=== PATIENT | male | born 1965 | race Caucasian/White ===

== ENCOUNTER → 2016-09-28 | Outpatient (CLI) | payer MEDICARE, OTHER ==
--- NOTE | 2016-09-28 11:42 | US ---
EXAMINATION TYPE: US abd limited kidneys/bladder DATE OF EXAM: 09/28/2016 9:02 AM COMPARISON: CT chest May 28, 2016 CLINICAL HISTORY: R93.2 AbN findings diagnostic imaging of liver. On meds for diabetes, no alcohol EXAM MEASUREMENTS: Liver Length: 11.3 cm Gallbladder Wall: 0.2 cm CHD: 0.4 cm Right Kidney: 1.0 X 4.4 X 4.4 cm Left Kidney: 10.7 X 6.0 X 5.8 cm Post Void Volume: 4.3 ML Pancreas: hyperechoic Liver: fatty; small left lobe Gallbladder: multiple wall echogenic focus (wall polyps) with largest = 0.4 x 0.3 x 0.3cm CBD: wnl Right Kidney: upper pole small, hyperechoic focus with posterior shadowing suggests renal calcificat ion = 0.6 x 0.6 x 0.4cm Left Kidney: wnl Bladder: wnl Bilateral Jets Seen Yes Normal Post Void Residual (normal less than 50ml) Yes TECHNOLOGIST IMPRESSION: No worrisome pancreatic mass or ductal dilatation is seen on images of the pancreas though the pancre as is felt suboptimally are not completely imaged due to shadowing from overlying bowel gas and patie nt's body habitus. Liver is heterogeneously hyperechoic in appearance consistent with diffuse fatty i nfiltration. No intrahepatic ductal dilatation is present. Evaluation for focal masses is limited due to the heterogeneity. No obvious masses are seen on recent CT or ultrasound images saved. Gallbladde r is seen without shadowing mobile gallstones. There are nonshadowing nonmobile small foci measuring up to 4 mm in size suspicious for small polyps. Technologist's notes 5 mm nonshadowing hyperechoic focus medially upper to mid pole level right kidne y, no corresponding calculus is seen on recent CT. No suspicious masses are seen in the left kidney on ultrasound. Note is made recent CT shows 1 cm rou nd hypodense lesion axial image 16 and coronal image 58 in which solid lesion or neoplasm cannot be e xcluded. Follow-up is advised. There are 1-2 additional likely simple appearing cyst measuring near [address] is not clearly seen on ultrasound. Bilateral distal ureter jets are seen in bladder. After voiding small amount of residual urine is present. IMPRESSION: 1. Heterogeneity of liver favors diffuse fatty infiltration. Underlying hepatocellular disease is not excluded. Imaging guided random biopsy for tissue analysis can be performed if desired. No suspiciou s mass in liver is seen to me on recent CT or ultrasound images saved. 2. Attention to left kidney upper pole level, solid lesion or neoplasm cannot be excluded. Follow-up renal protocol multiphase contrast-enhanced CT or MRI is advised to see if there is interval change.
== END | disposition home or self-care (01) ==
LOC: RADUSWWP 08:04
PROVIDERS: ATTEND Family Medicine
DX: R93.2 Abnormal findings on diagnostic imaging of liver and biliary tract (principal)
CPT/HCPCS: 76705; 76770

== ENCOUNTER → 2016-10-25 | Outpatient (CLI) | payer MEDICARE, OTHER ==
[2016-10-25 13:41] LABS: Blood Urea Nitrogen 12 mg/dL (9-20); Non-African American GFR(MDRD) >60 (>60 ml/min/1.73 sqM)
--- NOTE | 2016-10-25 15:42 | CT ---
EXAMINATION TYPE: CT abdomen w con DATE OF EXAM: 10/25/2016 2:38 PM COMPARISON: PET/CT 10/16/2016 INDICATION: Patient in for chronic nonalcoholic liver disease DLP: 774.2 mGycm, Automated exposure control for dose reduction was used. CONTRAST: 100 mL of Omnipaque 350. Study performed with Oral Contrast TECHNIQUE: Axial images were obtained from above the diaphragm to the pubic rami in the axial plane a t 5 mm thick sections. Reconstructed images are reviewed on the computer in the coronal plane. FINDINGS: Limited CT sections are obtained the lung bases. The lung bases are clear. CT ABDOMEN: Liver: Liver is a normal density without discrete masses or cysts. No lobation is evident. No hepatom egaly is evident. Spleen: Normal Pancreas: Normal Adrenal glands: The adrenal glands are normal. Gallbladder: Normal Kidneys: No masses are evident. No hydronephrosis is present. There is a 0.9 cm cyst on the lateral left kidney cortex. Delayed images were obtained through the kidneys, which remain unremarkable. Aorta: Vascular calcification is within the aorta. Inferior vena cava: Flattened which can be related to volume status. Loops of bowel within the abdomen and pelvis are normal. Oral contrast utilized is probably withi n the stomach. Appendix: Normal as visualized. IMPRESSIONS: 1. Liver appears unremarkable on this current CT examination.
== END | disposition home or self-care (01) ==
LOC: RADCTMAIN 12:33
PROVIDERS: ATTEND Family Medicine
DX: K76.9 Liver disease, unspecified (principal)
CPT/HCPCS: 82565; 84520; 74160; 36415; Q9967

== ENCOUNTER → 2016-12-31 | Outpatient (CLI) | payer MEDICARE, OTHER ==
[2016-12-31 18:38] LABS: Blood Urea Nitrogen 10 mg/dL (9-20); Non-African American GFR(MDRD) >60 (>60 ml/min/1.73 sqM)
--- NOTE | 2016-12-31 19:39 | CT ---
EXAMINATION TYPE: CT brain w con DATE OF EXAM: 12/31/2016 COMPARISON: NONE INDICATION: observation for mets. DLP: 999.3 mGycm, Automated exposure control for dose reduction was used. CONTRAST: [address] of the brain is performed utilizing 3 mm thick sections through the posterior fossa and 3 mm thick sections through the remaining calvarium. Study is performed within 24 hours of arrival to the hosp [facility]. No abnormal hyperdensity is present to suggest an acute intracranial hemorrhage. No mass lesion is evident. No acute infarcts are evident. Ventricles and sulci are appropriate for the patient age. Mucosal thickening is within the anterior ethmoid air cells and bilateral frontal sinuses. Some milde r mucosal thickening is within the mid and posterior ethmoid air cells. Sphenoid sinuses and maxillar y sinuses within the [id number] are clear. Mastoid air cells are clear. No abnormal enhancement is evident. IMPRESSIONS: 1. No suspicious enhancement or changes to suggest metastatic disease. 2. Scattered areas of mucosal thickening. Correlate for sinusitis.
== END | disposition home or self-care (01) ==
LOC: RADCTMAIN 17:52
PROVIDERS: ATTEND Internal Medicine Hematology & Oncology
DX: J34.89 Other specified disorders of nose and nasal sinuses (principal); R91.1 Solitary pulmonary nodule
CPT/HCPCS: 82565; 84520; 70460; 36415; Q9967

== ENCOUNTER 2017-01-03 08:29 | Day surgery (SDC) | payer MEDICARE, OTHER ==
[2017-01-03] MEDS ORDERED: ALPRAZolam 0.5 MG TAB PO ONE (08:53)
[2017-01-03 08:55] VITALS: RESP 20; TEMP 97.4
[2017-01-03 09:09] LABS: Mean Platelet Volume 6.2
[2017-01-03 09:13] LABS: Prothrombin Time 10.6 sec (9.0-12.0)
[2017-01-03 09:23] LABS: Glucose,Whole Blood 110 mg/dL (75-99)
--- NOTE | 2017-01-03 10:56 | CT ---
EXAMINATION TYPE: CT guided FNA DATE OF EXAM: 01/03/2017 HISTORY: Left upper lobe lung mass COMPARISON: NONE Maximal barrier technique was utilized. The skin overlying a suitable path to the lesion was localiz ed using CT and the overlying skin was prepped and draped. Lidocaine used for local anesthesia. A s kin kraig made with a scalpel. Using CT guidance, access was gained to the lesion with a 22-gauge nee dle through a 19-gauge guide. Aspirated specimen submitted to cytology. 3 passes were performed in all. Following the procedure no immediate complications. The patient is discharged in stable condi tion. Hemostasis achieved. IMPRESSION: SUCCESSFUL CT GUIDED BIOPSY. PATHOLOGY PENDING. THIS PROCEDURE WAS PERFORMED BY THE UNDERSIGNED.
--- NOTE | 2017-01-03 11:03 | XR ---
EXAMINATION TYPE: XR chest 1V portable DATE OF EXAM: 01/03/2017 COMPARISON: NONE HISTORY: Post lung biopsy TECHNIQUE: Single frontal view of the chest is obtained. FINDINGS: The osseous structures are intact. Left pulmonary mass is seen with no sizable pneumothora x. Elevation left hemidiaphragm is noted pleural-based thickening or tiny effusion suspected. IMPRESSION: 1. No sizable pneumothorax post biopsy.
--- NOTE | 2017-01-03 12:57 | XR ---
EXAMINATION TYPE: XR chest 1V portable DATE OF EXAM: 01/03/2017 COMPARISON: NONE HISTORY: Post left lung biopsy TECHNIQUE: Single frontal view of the chest is obtained. FINDINGS: There is a suggestion of a 5-10% left-sided pneumothorax along the lateral margin of the l eft upper lobe. Left hemidiaphragm elevation large pulmonary mass seen. Right lung clear. Biapical pl eural thickening. Heart size stable. IMPRESSION: 1. Findings are suspicious for a small left-sided pneumothorax measuring 5-10%.
[2017-01-03 14:09] VITALS: BP 107/70; PULSE 73
--- NOTE | 2017-01-03 14:47 | XR ---
EXAMINATION TYPE: XR chest special view(s) DATE OF EXAM: 01/03/2017 COMPARISON: Prior chest x-rays indicated earlier time, inspiration and expiration frontal views submi tted HISTORY: Status post lung biopsy TECHNIQUE: Frontal and lateral views of the chest are obtained. FINDINGS: No evident pneumothorax or sizable effusion. Patient's left lung mass is again noted. IMPRESSION: No evident complication status post lung biopsy
== END 2017-01-03 14:25 | disposition home or self-care (01) ==
LOC: RADPROMAIN 08:29
PROVIDERS: ATTEND Surgery
DX: C34.12 Malignant neoplasm of upper lobe, left bronchus or lung (principal)
CPT/HCPCS: 10022; 36415; 71010; 71035; 77012; 85049; 85610; 88173; 88305; 88341; 88342

== ENCOUNTER → 2017-01-08 | Outpatient (CLI) | payer MEDICARE, OTHER ==
--- NOTE | 2017-01-10 09:25 | PE ---
Nuclear medicine PET/CT HISTORY: Pulmonary nodule, R 91.1 Patient received 13.1 mCi F-18 FDG intravenously. Delayed scanning performed from the skull base to t he mid thighs. Localization and attenuation correction CT scan was performed. [facility] 10/16/2016 Neck and chest: Patient's pulmonary nodule is noted in the left upper lobe and shows corresponding hy permetabolic uptake, SUV is 12.5. There is no pleural or pericardial effusion. Deep to the level of l eft parotid gland at the level of the posterior mandible there is a focus of hypermetabolic uptake pr esent, SUV is 7. Abdomen pelvis: No suspicious hypermetabolic uptake. No evident renal mass. No liver mass. No retrope ritoneal adenopathy. Sigmoid colon activity is likely physiologic. Osseous structures: No significant interval change. IMPRESSION: Hypermetabolic uptake within patient's left upper lobe lung mass. Uptake within the nonen larged lymph node posterior to the left mandible is indeterminate and was present on prior.
== END | disposition home or self-care (01) ==
LOC: RADPETMAIN 14:04
PROVIDERS: ATTEND Internal Medicine Hematology & Oncology
DX: R91.8 Other nonspecific abnormal finding of lung field (principal); R59.0 Localized enlarged lymph nodes
CPT/HCPCS: 78815; A9552

== ENCOUNTER → 2017-04-16 | Outpatient (CLI) | payer MEDICARE, OTHER ==
--- NOTE | 2017-04-17 15:49 | PE ---
EXAMINATION TYPE: PET CT fusion whole body DATE OF EXAM: 04/16/2017 COMPARISON: CT-guided FNA 01/03/2017 Prior PET/CT: 01/08/2017 HISTORY: Lung cancer TECHNIQUE: Following the intravenous administration of 12.6 mCi of F-18 FDG, whole body images are p erformed from the skull base to the midthigh. Images are reviewed on the computer in the coronal, ax ial, and sagittal planes. Reconstructed rotating images are created on independent workstation and r eviewed on the computer. A localization and attenuation correction CT is performed in conjunction w ith the PET scan. DLP: 411.69 mGycm SCAN: Subsequent Scan Blood glucose: 92 mg/dL Average Mediastinum SUV: 1.13 Average Liver SUV: 1.41 FINDINGS: NECK: There is a focal area of marked increased uptake within the left parotid gland at the angle of the jaw. This has an SUV value of 9.8 and can be compatible with a metastatic lesion. PET image 28. THORAX: No abnormal uptake. Previous left midlung nodule has nearly resolved. The SUV value of the re sidual nodule is 0.99 compared to the previous of 12. ABDOMEN: No abnormal uptake PELVIS: No abnormal uptake OSSEOUS STRUCTURES: There is diffuse uptake which may be reactive to treatment. LOCALIZATION CT: Suspicious nodules correspond to the uptake on the PET scan in the left parotid sabine on is not identified. The ascending thoracic aorta at the level of the main pulmonary artery is 3.7 c m. The main pulmonary artery bifurcation is 2.6 cm. Left upper lobe nodule is diminished in size curr ently is a transverse dimension of 0.8 cm. Image 86 series 3. COMPARISON: Hypermetabolic activity within the left parotid region appears increased from comparison. The area of marked increased uptake on the prior left upper lung field is not evident on the current examination. This area has diminished in size currently measuring 0.8 cm compared previous AP measur ement of 2.7 cm. IMPRESSION: 1. Increasing activity within a left parotid nodule. 2. Near complete resolution with a normal-appearing SUV value of a left lung nodule.
== END | disposition home or self-care (01) ==
LOC: RADPETMAIN 12:41
PROVIDERS: ATTEND Internal Medicine Hematology & Oncology
DX: C34.92 Malignant neoplasm of unspecified part of left bronchus or lung (principal); K11.8 Other diseases of salivary glands
CPT/HCPCS: 78816; A9552

== ENCOUNTER → 2017-04-21 | Outpatient (CLI) | payer MEDICARE, OTHER ==
--- NOTE | 2017-04-21 15:55 | US ---
EXAMINATION TYPE: US Parotid Glands DATE OF EXAM: 04/21/2017 COMPARISON: PET CT 04/16/2017 CLINICAL HISTORY: 52-year-old male K11.8 DISEASE SALIVARY GLAD. Patient stated at end of US has Lung CA; following 0.8cm left parotid nodule per PET scan. TECHNIQUE: Multiple sonographic images of the parotid glands were obtained. FINDINGS: GLAND SIZE: Right Parotid: 3.8 x 3.2 x 0.4 cm Overall Parenchyma: homogenous Left Parotid: 3.8 x 2.6 x 0.5 cm Overall Parenchyma: homogeneous US Parotid: RIGHT: - lymph node is noted mid gland, size = 0.6 x 0.7 x 0.4cm; - multiple lymph nodes are additionally seen inferior to right parotid. LEFT: - lymph node is imaged in superior parotid area = 0.5 x 0.4 x 0.4cm; - smaller lymph node seen adjacent to mid parotid; - inferior parotid gland has another lymph node = 0.4 x 0.3 x 0.3cm; - mid pole small lymph node superficial to the parotid gland = 0.3 x 0.2 x 0.2cm; - inferior to parotid gland is an 8 x 7 x 4 mm hypoechoic lesion with a 3 mm internal cystic componen t. IMPRESSION: 1. A few intraparotid lymph nodes demonstrated on both size. These are nonspecific and the one on the right is mildly enlarged at 7 mm. 2. A hypoechoic area along the inferior margin of the left parotid tail measures 8 mm and seems to co ntain a 3 mm internal cystic component. Correlate with physical exam findings for any suspicious palp able abnormality here. If any growth is noted, tissue sampling can be performed. 3. Consider short interval follow-up ultrasound on the left under radiologist supervision in order to direct imaging to the location of the abnormality seen on PET scan (directly posterior to the mandib ular angle, in front of the anterior margin of the sternocleidomastoid, deep to the parotid gland and deep to a vein coursing within the parotid gland).
== END | disposition home or self-care (01) ==
LOC: RADUSWWP 12:22
PROVIDERS: ATTEND Internal Medicine Hematology & Oncology
DX: K11.6 Mucocele of salivary gland (principal); K11.1 Hypertrophy of salivary gland
CPT/HCPCS: 76536

== ENCOUNTER → 2017-07-20 | Outpatient (CLI) | payer MEDICARE, OTHER ==
[2017-07-20 13:33] LABS: Blood Urea Nitrogen 12 mg/dL (9-20)
--- NOTE | 2017-07-20 13:57 | US ---
EXAMINATION TYPE: US thyroid st tissue head/neck DATE OF EXAM: 07/20/2017 COMPARISON: US CLINICAL HISTORY: CA34.92 Lung CA. Right and left parotid area scanned Right shows hypoechoic areas probable lymph nodes largest measuring 0.5 x 0.6 x 0.8cm Left shows hypoechoic areas probable lymph nodes largest measuring 0.9 x 0.6 x 1.0cm IMPRESSION: 1. Shotty adenopathy within the neck. Short axis measurement are 8 mm or less within the visualized l ymph nodes.
--- NOTE | 2017-07-20 15:11 | CT ---
EXAMINATION TYPE: CT ChestAbdPelvis w con DATE OF EXAM: 07/20/2017 INDICATION: Follow up scan per patient COMPARISON: CT abdomen 10/25/2016, CT chest 05/28/2016 CT DLP: 784.3 mGycm CONTRAST: Performed with Oral Contrast and with IV Contrast, patient injected with 80 mL of Visipaque 320. TECHNIQUE: Axial images at 5 mm thick sections. Reconstructed images in the coronal plane. Delayed images through the kidneys. FINDINGS: CT CHEST: There is a 1.0 cm hypodensity within the mid right lobe thyroid. Follow-up with ultrasound is recommended. There is a tiny focal area of pneumonitis within the anterior left midlung. Series 4 image 21. Additi onal pneumonitis changes along the periphery of the lingula. This measures approximately 2.5 x 1.4 cm on lung windows. Series 4 image 26. This corresponds to the previous lobular density in this region and has diminished in size over the interval. Some posterior lateral pneumonitis changes adjacent to the diaphragm at the left base. Series 4 image 40. There is elevation left diaphragm. No enlarged mediastinal or hilar adenopathy is evident. The ascending aorta diameter at the level of the main pulmonary artery is 3.7 cm. The main pulmonary artery diameter at the bifurcation is 2.[address] ABDOMEN: Liver: Normal Spleen: Normal Pancreas: Normal Adrenal glands: The adrenal glands are normal. Gallbladder: Normal Kidneys: No masses are evident. No hydronephrosis is present. There is a 1.4 cm cyst on the mid lat eral left kidney measuring 25 Hounsfield units. An inferior pole 1.7 cm medial left renal cyst measur ing 15 Hounsfield units is present. Delayed images were obtained through the kidneys, which remain u nremarkable. Aorta: Normal Inferior vena cava: Normal. CT PELVIS: Loops of bowel within the abdomen and pelvis are normal. There are loops of bowel which are incom pletely distended or lack oral contrast limiting their evaluation. Some thickening of the distal rect al wall is not excluded. This is circumferential without stenosis. Appendix: Normal as visualized. Urinary bladder: Decompressed. This may account for some subtle diffuse wall thickening. Genitourinary structures: Prostate is prominent contains calcification. Osseous structures: No suspicious lytic or sclerotic lesions. IMPRESSIONS: 1. Diminished size of a lobular lingular density left midlung. Free. 2. New areas of pneumonitis within the lingula.
== END | disposition home or self-care (01) ==
LOC: RADCTMAIN 12:47
PROVIDERS: ATTEND Internal Medicine Hematology & Oncology
DX: J18.9 Pneumonia, unspecified organism (principal); C34.92 Malignant neoplasm of unspecified part of left bronchus or lung; R91.8 Other nonspecific abnormal finding of lung field; R59.0 Localized enlarged lymph nodes
CPT/HCPCS: 82565; 84520; 76536; 71260; 74177; Q9967

== ENCOUNTER → 2017-10-20 | Outpatient (CLI) | payer MEDICARE ==
--- NOTE | 2017-10-20 15:35 | CT ---
EXAMINATION TYPE: CT ChestAbdPelvis w con DATE OF EXAM: 10/20/2017 COMPARISON: 07/20/2017 HISTORY: Patient has no complaints at time of service. Follow up study for known lung CA. CT DLP: 1696 mGycm. Automated Exposure Control for Dose Reduction was Utilized. CONTRAST: CT scan of the thorax, abdomen and pelvis is performed with IV Contrast, patient injected with 80 mL of Isovue 370. FINDINGS: LUNGS: Previously seen approximately 4 mm region of groundglass opacity within the anterior left uppe r lung has resolved in the interim. Linear groundglass opacity is seen in oblique direction within th e left upper lobe and could relate to posttreatment change. New subpleural groundglass opacity on ser ies 4 image 23 measures 1.1 cm. There is also a new somewhat groundglass opacity within the left lowe r lobe on series 4 image 29 measuring 1.9 x 1.4 cm. Volume loss is again noted within the left lung w ith left hemidiaphragm elevation. There is a 3 mm pulmonary nodule within the right middle lobe on series 4 image 44 that is retrospect ively unchanged from the prior and somewhat linear in morphology. MEDIASTINUM: There are no greater than 1 cm hilar or mediastinal lymph nodes. No pericardial effusi on is seen. Ascending thoracic aorta and main pulmonary artery are within normal limits. OTHER: Thyroid gland is heterogenous with nodularity in the right. LIVER/GB: Tiny 2 mm punctate hypodensity within the hepatic parenchyma on series 3 image 45 measures approximately 2 mm and is too small to accurately characterize. Gallbladder is unremarkable. PANCREAS: Pancreas enhances homogeneously without ductal dilatation. SPLEEN: No significant abnormality is seen. ADRENALS: No nodularity or thickening. KIDNEYS: Left mid pole and lower pole renal cysts are unchanged from the prior. No hydronephrosis. Ki dneys enhance symmetrically. BOWEL: Moderate moderate ankle axilla seen within nondilated bowel. No evidence of focal bowel wall t hickening. GENITAL ORGANS: Prostate gland is heterogenous containing central zone calcifications. LYMPH NODES: No greater than 1cm abdominal or pelvic lymph nodes are appreciated. OSSEOUS STRUCTURES: Multilevel mild degenerative changes of the thoracic spine are seen. No suspiciou s osseous abnormality. IMPRESSION: 1. In the region of the previously seen pulmonary nodule there is now linear opacity favored to repre sent posttreatment change. Within the left lower lobe just inferior to this there is a new focal grou ndglass opacity measuring 1.9 x 1.4 cm. Short-term follow-up is recommended for this groundglass opac ity to ensure this represents inflammatory pneumonitis/posttreatment change. 2. Unchanged 3 mm right middle lobe pulmonary nodule and resolution of the previously seen approximat bandar 4 mm of left upper lobe groundglass area of nodularity that was likely related to atelectasis on the prior exam. 3. No new findings suspicious for osseous or visceral metastasis within the abdomen or pelvis. Tiny 2 mm hepatic hypoattenuated lesion is too small to accurately characterize.
== END | disposition home or self-care (01) ==
LOC: RADCTMAIN 13:08
PROVIDERS: ATTEND Internal Medicine Hematology & Oncology
DX: C34.92 Malignant neoplasm of unspecified part of left bronchus or lung (principal); K76.89 Other specified diseases of liver
CPT/HCPCS: 82565; 84520; 71260; 74177; 36415; Q9967

== ENCOUNTER → 2018-01-17 | Outpatient (CLI) | payer MEDICARE ==
--- NOTE | 2018-01-17 13:09 | CT ---
EXAMINATION TYPE: CT ChestAbdPelvis w con DATE OF EXAM: 01/17/2018 COMPARISON: 10/20/2017 HISTORY: Lung cancer CT DLP: 1200 mGycm Automated exposure control for dose reduction was used. CONTRAST: CT scan of the chest, abdomen and pelvis is performed with Oral Contrast and with IV Contrast, patien t injected with 100 mL of Isovue 300. FINDINGS: LUNGS: Linear groundglass opacity is seen in oblique direction within the left upper lobe and could relate t o posttreatment change. Stable subpleural groundglass opacity measures 1.1 cm. There is also a stabl e somewhat area of nodularity within the left lower lobe medially measuring 1.9 x 1.4 cm. Volume loss is again noted within the left lung with left hemidiaphragm elevation. There is a 3 mm pu lmonary nodule within the right middle lobe that is retrospectively unchanged from the prior and some what linear in morphology. MEDIASTINUM: Left perihilar infrahilar soft tissue density measuring short axis of 9 mm stable compat ible with an area of borderline adenopathy.. Heterogeneous thyroid gland is stable. LIVER/GB: Tiny 2 mm punctate hypodensity within the hepatic parenchyma on series 3 image 45 measures approximately 2 mm and is too small to accurately characterize. Gallbladder is unremarkable. PANCREAS: No significant abnormality is seen. SPLEEN: No significant abnormality is seen. ADRENALS: No significant abnormality is seen. KIDNEYS: Left mid pole and lower pole renal cysts are unchanged from the prior. No hydronephrosis. Ki dneys enhance symmetrically. BOWEL: No significant abnormality is seen. Small hiatal hernia noted. LYMPH NODES: No greater than 1 cm abdominal or pelvic lymph nodes are appreciated. OSSEOUS STRUCTURES: Multilevel mild degenerative changes of the spine are seen. No suspicious osseous abnormality. Multilevel facet arthropathy noted. OTHER: Prostate gland is heterogeneous and contains calcifications. Bladder wall is concentrically th ickened correlate for cystitis. IMPRESSION: 1. Stable nodularity involving the lungs as discussed above unchanged from prior exam. Borderline ad enopathy in the left hilum also stable. 2. Stable heterogeneous thyroid changes correlate for thyroiditis. Suspect a 1 cm right-sided thyroid nodule. 3. There is marked bladder wall thickening correlate for cystitis.
== END | disposition home or self-care (01) ==
LOC: RADCTMAIN 10:57
PROVIDERS: ATTEND Internal Medicine Hematology & Oncology
DX: C34.92 Malignant neoplasm of unspecified part of left bronchus or lung (principal); N32.89 Other specified disorders of bladder
CPT/HCPCS: 82565; 84520; 71260; 74177; 36415; Q9967

== ENCOUNTER → 2018-05-22 | Outpatient (CLI) | payer MEDICARE, OTHER ==
--- NOTE | 2018-05-22 14:34 | CT ---
EXAMINATION TYPE: CT ChestAbdPelvis w con DATE OF EXAM: 05/22/2018 COMPARISON: 01/17/2018 HISTORY: LT LUNG CANCER/SUSPECT METS CT DLP: 716.50 mGycm Automated exposure control for dose reduction was used. CONTRAST: CT scan of the chest, abdomen and pelvis is performed with Oral Contrast and with IV Contrast, patien t injected with 100 mL of Isovue 300. FINDINGS: LUNGS: Linear groundglass opacity is seen in oblique direction within the left upper lobe and could r elate to posttreatment change. Stable subpleural groundglass opacity measures 1.1 cm. There is also a somewhat area of nodularity within the left lower lobe medially measuring 1.9 x 1.4 cm. On the previ ous exam and appears to be measuring only 1.4 x 0.7 cm on today's exam. Volume loss is again noted wi thin the left lung with left hemidiaphragm elevation. There is a 3 mm pulmonary nodule within the rig ht middle lobe that is retrospectively unchanged from the prior and somewhat linear in morphology. MEDIASTINUM: Left perihilar infrahilar soft tissue density measuring short axis of 9 mm stable compat ible with an area of borderline adenopathy.. Heterogeneous thyroid gland is stable. OTHER: No additional significant abnormality is seen. LIVER/GB: Tiny 2 mm punctate hypodensity within the hepatic parenchyma measures approximately 2 mm a nd is too small to accurately characterize. Gallbladder is unremarkable. PANCREAS: No significant abnormality is seen. SPLEEN: No significant abnormality is seen. ADRENALS: No significant abnormality is seen. KIDNEYS: Left mid pole and lower pole renal cysts are unchanged from the prior. No hydronephrosis. Ki dneys enhance symmetrically BOWEL: Prominent small bowel loops in the pelvis may be transient.. LYMPH NODES: No greater than 1 cm abdominal or pelvic lymph nodes are appreciated. OSSEOUS STRUCTURES: There is a healing rib fractures involving the left lateral upper rib cage. There is a sclerotic lesion involving the mid posterior left rib.. Multilevel degenerative changes noted. OTHER: Prostate gland is heterogeneous and contains calcifications. Bladder wall is concentrically th ickened correlate for cystitis. IMPRESSION: 1. Stable nodularity involving the lungs as discussed above unchanged from prior exam. Borderline yokasta nopathy in the left hilum also stable. 2. Thyroid changes are stable. 3. Correlate for chronic cystitis. 4. There now is a healing left sided rib fracture with adjacent pleural thickening which is nonspecif ic. Area of sclerosis involving the posterior left rib also noted retrospectively stable dating back to the PET scan of 04/16/2017 where there was no significant abnormal uptake. 5. Prominent small bowel loops in the pelvis may be transient rather than related to ileus or enterit is correlate clinically.
== END | disposition home or self-care (01) ==
LOC: RADCTMAIN 12:07
PROVIDERS: ATTEND Internal Medicine Hematology & Oncology
DX: C34.92 Malignant neoplasm of unspecified part of left bronchus or lung (principal); E07.89 Other specified disorders of thyroid; J92.9 Pleural plaque without asbestos; S22.32XD Fracture of one rib, left side, subsequent encounter for fracture with routine healing
CPT/HCPCS: 82565; 84520; 71260; 74177; 36415; Q9967

== ENCOUNTER → 2018-09-18 | Outpatient (CLI) | payer MEDICARE, OTHER ==
--- NOTE | 2018-09-18 14:08 | CT ---
EXAMINATION TYPE: CT ChestAbdPelvis w con DATE OF EXAM: 09/18/2018 COMPARISON: Prior exam 05/22/2018 HISTORY: Follow up scan per patient CT DLP: 1431 mGycm Automated exposure control for dose reduction was used. CONTRAST: CT scan of the chest, abdomen and pelvis is performed with Oral Contrast and with IV Contrast, patien t injected with 100 mL of Isovue 300. FINDINGS: LUNGS: The lungs are grossly clear, there is no concerning parenchymal mass or nodule identified. The re is an persistent scarring in the left midlung, some local pleural thickening present laterally is unchanged in the left mid hemithorax There is no pleural effusion or pneumothorax seen. The tracheo bronchial tree is patent. MEDIASTINUM: There are no greater than 1 cm hilar or mediastinal lymph nodes. No pericardial effusi on is seen. AORTA: No significant abnormality is seen. For super aortic branch vessels are present. OTHER: No additional significant abnormality is seen. LIVER/GB: No significant abnormality is appreciated. PANCREAS: No significant abnormality is seen. SPLEEN: No significant abnormality is seen. ADRENALS: No significant abnormality is seen. KIDNEYS: No significant interval change is seen. REPRODUCTIVE ORGANS: Prostate appears prominently. There are associated calcifications.. BOWEL: Rectosigmoid colon again shows wall thickening. Difficult to exclude callosal lesion. FREE AIR: No Free Air visible. ASCITES: None seen. RETROPERITONEAL ADENOPATHY: No retroperitoneal adenopathy is seen. LYMPH NODES: No greater than 1 cm abdominal or pelvic lymph nodes are appreciated. URINARY BLADDER: Urinary bladder shows a thickened wall possibly due to chronic outlet obstruction.. PELVIC ADENOPATHY: None visualized. OSSEOUS STRUCTURES: At the site of patient's pleural thickening laterally on the left chest rib frac ture is again noted persistent lucency which may represent nonunion. IMPRESSION: No evident recurrence. Difficult to exclude a mucosal lesion in the colon.
== END | disposition home or self-care (01) ==
LOC: RADCTMAIN 09:05
PROVIDERS: ATTEND Internal Medicine Hematology & Oncology
DX: C34.92 Malignant neoplasm of unspecified part of left bronchus or lung (principal)
CPT/HCPCS: 71260; 74177; Q9967

== ENCOUNTER → 2019-01-22 | Outpatient (CLI) | payer MEDICARE, OTHER ==
--- NOTE | 2019-01-22 20:03 | CT ---
EXAMINATION TYPE: CT ChestAbdPelvis w con DATE OF EXAM: 01/22/2019 INDICATION: Left side lung cancer. COMPARISON: 09/18/2018 CT DLP: 691.5 mGycm CONTRAST: Performed with Oral Contrast and with IV Contrast, patient injected with 100ml mL of Isovue 300. TECHNIQUE: Axial images at 5 mm thick sections. Reconstructed images in the coronal plane. Delayed images through the kidneys. FINDINGS: CT CHEST: Thyroid: There is mild heterogeneity of the right lobe thyroid. A 0.6 cm nodule may be pres ent. There is elevation of the left diaphragm. There is increased density through the left infrahilar sabine on. Some peribronchial thickening is present. Discrete underlying mass however is not identified. No suspicious lung nodules or focal infiltrates are present. No enlarged mediastinal or hilar adenopathy is evident. The ascending aorta diameter at the level of the main pulmonary artery is 3.5 cm. The main pulmonary artery diameter at the bifurcation is 2.[address] ABDOMEN: Liver: Normal Spleen: Normal Pancreas: Normal Adrenal glands: The adrenal glands are normal. Gallbladder: Normal Kidneys: No masses are evident. No hydronephrosis is present. Small left cortical renal cysts prese nt Delayed images were obtained through the kidneys, which remain unremarkable. Aorta: Normal Inferior vena cava: Normal. CT PELVIS: The cecum appears to have thickened wall. Fluid is within the proximal ascending colon. Correlate for typhlitis. There are some proximal left upper quadrant small bowel loops which are prominent. Mild j ejunitis may be present. Some thickening of the small bowel may be present. Example image series 6 im age 44. There are loops of bowel which are incompletely distended or lack oral contrast limiting thei r evaluation. No evidence of obstruction is evident. Some wall thickening of the distal rectum should be considered. Appendix: Normal as visualized. Urinary bladder: Normal. Genitourinary structures: Prostate is very prominent. Osseous structures: No suspicious lytic or sclerotic lesions. IMPRESSIONS: 1. Thickening of the cecum with fluid in the ascending colon. Correlate for typhlitis. The appendix i s normal. 2. Mild jejunitis versus ileus in the left upper quadrant. 3. Prostate hypertrophy. 4. Left infrahilar peribronchial thickening. This appears similar to 09/18/2018 5. No suspicious change for metastasis or recurrence.
== END | disposition home or self-care (01) ==
LOC: RADCTMAIN 13:37
PROVIDERS: ATTEND Internal Medicine Hematology & Oncology
DX: K63.89 Other specified diseases of intestine (principal); N40.0 Benign prostatic hyperplasia without lower urinary tract symptoms; C34.92 Malignant neoplasm of unspecified part of left bronchus or lung
CPT/HCPCS: 82565; 84520; 71260; 74177; 36415; Q9967

== ENCOUNTER → 2019-06-21 | Outpatient (CLI) | payer MEDICARE, OTHER ==
--- NOTE | 2019-06-21 16:51 | CT ---
EXAMINATION TYPE: CT ChestAbdPelvis w con DATE OF EXAM: 06/21/2019 INDICATION: Lung ca COMPARISON: 01/22/2019 CT DLP: 1299 mGycm CONTRAST: Performed with Oral Contrast and with IV Contrast, patient injected with 100 mL of Isovue 300. TECHNIQUE: Axial images at 5 mm thick sections. Reconstructed images in the coronal plane. Delayed images through the kidneys. FINDINGS: CT CHEST: There is heterogeneity within the thyroid. This could be further evaluated with ultrasound findings a ppear similar to January 2019. There is an infiltrate in the left perihilar region extending towards the periphery of the left lung. This appears stable from comparison. No enlarged mediastinal or hilar adenopathy is evident. Small lymph node may be in the right suprahil ar region. The ascending aorta diameter at the level of the main pulmonary artery is 3.4 cm. The main pulmonary artery diameter at the bifurcation is 2.[address] ABDOMEN: Liver: Normal Spleen: Normal Pancreas: Normal Adrenal glands: The adrenal glands are normal. Gallbladder: Decompressed. Some wall enhancement is not excluded. Kidneys: No masses are evident. No hydronephrosis is present. No cysts are present. Delayed images were obtained through the kidneys, which remain unremarkable. Aorta: Vascular calcification is within the aorta. Inferior vena cava: Normal. CT PELVIS: Loops of bowel within the abdomen and pelvis are normal. There are loops of bowel which are incom pletely distended or lack oral contrast limiting their evaluation. Appendix: Normal as visualized. Urinary bladder: Normal. Genitourinary structures: Prostate is enlarged and contains calcification. Osseous structures: No suspicious lytic or sclerotic lesions. Facet degenerative changes within the m id lumbar spine. IMPRESSIONS: 1. Left perihilar extending towards the left periphery lung infiltrate is stable from January 2019. 2. No suspicious changes to suggest metastatic or recurrent neoplasm.
== END | disposition home or self-care (01) ==
LOC: RADCTMAIN 13:33
PROVIDERS: ATTEND Internal Medicine Hematology & Oncology
DX: R91.8 Other nonspecific abnormal finding of lung field (principal); C34.92 Malignant neoplasm of unspecified part of left bronchus or lung
CPT/HCPCS: 82565; 84520; 71260; 74177; 36415; Q9967 ×2

== ENCOUNTER 2020-01-24 13:49 | Inpatient (IN) | payer MEDICARE, MEDICAID ==
--- NOTE | 2020-01-24 14:20 | ED ---
General Adult HPI - General Source: patient, RN notes reviewed, old records reviewed Mode of arrival: ambulatory Limitations: no limitations <Navdeep Barahona - Last Filed: 01/24/20 14:18> <Tereza Phelps - Last Filed: 01/29/20 00:35> - General Chief complaint: Psychiatric Symptoms Stated complaint: Mental Health Time Seen by Provider: 01/24/20 13:55 - History of Present Illness Initial comments: This is a 54-year-old male with past medical history of schizoaffective disorder. Patient was noncompliant with his medications and told the [facility] worker that he was going to kill him or anybody else shows up at the house. Patient at this point time denies all that. Patient denies wanting to harm himself or anybody else. Patient denies any delusions or hallucinations. Patient denies any physical complaints today. Patient was brought in by the police with a pickup order from the psychiatry teacher (Navdeep Barahona) - Related Data Home Medications Medication Instructions Recorded Confirmed Escitalopram [Lexapro] 20 mg PO DAILY 12/27/16 01/24/20 cloZAPine [Clozaril] 300 mg PO DAILY 12/27/16 01/24/20 Allergies Allergy/AdvReac Type Severity Reaction Status Date / Time No Known Allergies Allergy Verified 01/24/20 15:16 Review of Systems ROS Other: All systems not noted in ROS Statement are negative. <Navdeep Barahona - Last Filed: 01/24/20 14:18> ROS Other: All systems not noted in ROS Statement are negative. <Tereza Phelps - Last Filed: 01/29/20 00:35> ROS Statement: Those systems with pertinent positive or pertinent negative responses have been documented in the HPI. Past Medical History Past Medical History: Diabetes Mellitus, Hyperlipidemia, Hypertension History of Any Multi-Drug Resistant Organisms: None Reported Past Surgical History: No Surgical Hx Reported Past Anesthesia/Blood Transfusion Reactions: No Reported Reaction Past Psychological History: Schizoaffective Disorder Smoking Status: Former smoker Past Alcohol Use History: None Reported Past Drug Use History: None Reported - Past Family History Father Family Medical History: CVA/TIA <Navdeep Barahona - Last Filed: 01/24/20 14:18> General Exam Limitations: no limitations <Navdeep Barahona - Last Filed: 01/24/20 14:18> - General Exam Comments Initial Comments: GENERAL: Patient is well-developed and well-nourished. Patient is nontoxic and well- hydrated and is in no acute distress. ENT: Neck is soft and supple. No significant lymphadenopathy is noted. Oropharynx is clear. Moist mucous membranes. Neck has full range of motion without eliciting any pain. EYES: The sclera were anicteric and conjunctiva were pink and moist. Extraocular movements were intact and pupils were equal round and reactive to light. Eyelids were unremarkable. PULMONARY: Unlabored respirations. Good breath sounds bilaterally. No audible rales rhonchi or wheezing was noted. CARDIOVASCULAR: There is a regular rate and rhythm without any murmurs gallops or rubs. ABDOMEN: Soft and nontender with normal bowel sounds. SKIN: Skin is clear with no lesions or rashes and otherwise unremarkable. NEUROLOGIC: Patient is alert and oriented x3. Cranial nerves II through XII are grossly intact. Motor and sensory are also intact. Normal speech, volume and content. Symmetrical smile. MUSCULOSKELETAL: Normal extremities with adequate strength and full range of motion. No lower extremity swelling or edema. LYMPHATICS: No significant lymphadenopathy is noted PSYCHIATRIC: Normal psychiatric evaluation. Patient denies suicidal or homicidal ideations. Patient denies delusions or hallucinations. (Navdeep Barahona) Course Vital Signs 01/24/20 01/24/20 13:56 15:00 Temperature 98.1 F Pulse Rate 96 Respiratory 18 18 Rate Blood Pressure 141/96 O2 Sat by Pulse 99 Oximetry Medical Decision Making <Navdeep Barahona - Last Filed: 01/24/20 14:18> <Tereza Phelps - Last Filed: 01/29/20 00:35> - Medical Decision Making Dr. Phelps will be taking over the care of this patient at 3 PM (Navdeep Barahona) Patient evaluated and admitted to the MHU. (Tereza Phelps) - Lab Data Lab Results 01/24/20 Range/Units 14:36 Urine Opiates Screen Not Detected (NotDetected) Ur Oxycodone Screen Not Detected (NotDetected) Urine Methadone Screen Not Detected (NotDetected) Ur Propoxyphene Screen Not Detected (NotDetected) Ur Barbiturates Screen Not Detected (NotDetected) U Tricyclic Antidepress Not Detected (NotDetected) Ur Phencyclidine Scrn Not Detected (NotDetected) Ur Amphetamines Screen Not Detected (NotDetected) U Methamphetamines Scrn Not Detected (NotDetected) U Benzodiazepines Scrn Not Detected (NotDetected) Urine Cocaine Screen Not Detected (NotDetected) U Marijuana (THC) Screen Not Detected (NotDetected) Disposition <Navdepe Barahona - Last Filed: 01/24/20 14:18> Is patient prescribed a controlled substance at d/c from ED?: No Decision to Admit Reason: Admit from EC Decision Date: 01/24/20 Decision Time: 16:34 <Tereza Phelps - Last Filed: 01/29/20 00:35> Clinical Impression: Homicidal ideation Disposition: ADMITTED IP TO THIS [facility] Condition: Stable
[2020-01-24 15:26] LABS: Amphetamine Screen,Urine Not Detected (NotDetected); Barbiturate Screen,Urine Not Detected (NotDetected); Benzodiazepines Screen,Urine Not Detected (NotDetected); Cocaine Screen,Urine Not Detected (NotDetected); Methadone Screen, Urine Not Detected (NotDetected); Opiate Screen,Urine Not Detected (NotDetected); Oxycodone Screen, Urine Not Detected (NotDetected); Phencyclidine Screen,Urine Not Detected (NotDetected); Tricyclic Antidepressant,Urine Not Detected (NotDetected); Urn Cannabinoid Scrn Not Detected (NotDetected)
[2020-01-24] MEDS ORDERED: LORazepam 1 MG TAB PO PRN (19:48)
[2020-01-24] MEDS ORDERED: ACETAMINOPHEN TAB 325 MG TAB PO PRN (19:48)
[2020-01-24] MEDS ORDERED: ZIPRASIDONE 20 MG VIAL IM PRN (19:48)
[2020-01-24] MEDS ORDERED: MAGNESIUM HYDROXIDE 2,400 MG/10 ML CUP PO PRN (19:48)
[2020-01-24] MEDS ORDERED: MAG HYDROX/AL HYDROX/SIMETH 30 ML CUP PO PRN (19:48)
[2020-01-25 07:48] LABS: Glucose,Whole Blood 92 mg/dL (75-99)
[2020-01-25] MEDS: INSULIN ASPART (NovoLOG) 100 UNIT/ML VIAL SQ SCH ×5 (08:44→21:50)
[2020-01-25] MEDS: ESCITALOPRAM 20 MG TAB PO SCH (08:47)
[2020-01-25] MEDS ORDERED: cloZAPine 100 MG TAB PO SCH (09:00)
--- NOTE | 2020-01-25 12:43 | P.HP ---
Psychiatric H&P - . H&P Date: 01/25/20 History & Physical: Allergies Allergy/AdvReac Type Severity Reaction Status Date / Time No Known Allergies Allergy Verified 01/24/20 15:16 Vital Signs Temp 98.0 F 01/25/20 08:48 Pulse 78 01/24/20 19:28 Resp 18 01/25/20 08:48 BP 131/76 01/25/20 08:48 Pulse Ox 98 01/24/20 19:28 Intake & Output 01/24/20 01/25/20 01/25/20 18:59 06:59 18:59 Weight 72.575 kg 67.585 kg Laboratory Last Values POC Glucose (mg/dL) 92 mg/dL (75-99) 01/25/20 07:45 POC Glu Commercial Leasing Manager ID Bernie Hough 01/25/20 07:45 Urine Opiates Screen Not Detected (NotDetected) 01/24/20 14:36 Ur Oxycodone Screen Not Detected (NotDetected) 01/24/20 14:36 Urine Methadone Screen Not Detected (NotDetected) 01/24/20 14:36 Ur Propoxyphene Screen Not Detected (NotDetected) 01/24/20 14:36 Ur Barbiturates Screen Not Detected (NotDetected) 01/24/20 14:36 U Tricyclic Antidepress Not Detected (NotDetected) 01/24/20 14:36 Ur Phencyclidine Scrn Not Detected (NotDetected) 01/24/20 14:36 Ur Amphetamines Screen Not Detected (NotDetected) 01/24/20 14:36 U Methamphetamines Scrn Not Detected (NotDetected) 01/24/20 14:36 U Benzodiazepines Scrn Not Detected (NotDetected) 01/24/20 14:36 Urine Cocaine Screen Not Detected (NotDetected) 01/24/20 14:36 U Marijuana (THC) Screen Not Detected (NotDetected) 01/24/20 14:36 01/25/20 12:34 IDENTIFYING DATA: Patient is a 54-year-old male who currently lives alone in apartment 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 HPI: Patient presented to the hospital yesterday on a pick pulling machine tender order signed by the chief innovation officer after patient told [facility] staff that he was going to kill himself or anybody else to come to his house according to ER report. Patient apparently then denied saying these comments in the ER. Patient's UDS was negative. Patient was brought in on a petition and certification period patient has a history of schizophrenia and was previously" Clozaril and Lexapro. Patient was fairly superficial concrete and was a poor historian. Patient again denied any of the allegations on the petition and certification and states that he did not threaten anybody. He spoke briefly about his medication and states that he is taking his Clozaril every day and denied going in for blood work. Patient claims that he has been dealing with schizoaffective disorder for 10 years now. Patient was bizarrely looking around the room at times. He denied any changes in his mood at this time denies any depressive or manic symptoms. He denies any anxiety. He claims that he isn't sleeping fairly and has a fair appetite. Patient denies any suicidal or homicidal ideations intent or plan. At this time patient denies any auditory or visual hallucinations. Patient denies any flight of ideas racing thoughts and increased in goal directed behavior. Patient admits to using no recreational drugs at this time or cigarettes. PAST PSYCHIATRIC HISTORY: Patient states that his history of schizoaffective disorder. Patient was previously on Clozaril and Lexapro. Patient states that he has had a number of psychiatric hospitalizations however does not remember the last time he was admitted to the mental health unit. No mental health admissions were listed in the EMR. Patient claims that he sees Dr. Lr at [facility] for outpatient follow-up. Patient denies any history of suicide attempts in the past. PMH: Diabetes mellitus, hyperlipidemia and hypertension. ALLERGIES: as per EMR CHEMICAL DEPENDENCY HISTORY: as per HPI FAMILY PSYCHIATRIC/SUBSTANCE USE HISTORY: denies SOCIAL HISTORY: Patient was born and raised in [place] and claims that he completed up to the 10th grade of school. He denied any work history. He states that he lives alone in an apartment and is single and has no kids. He denied any legal problems in the past. MENTAL STATUS EXAM: General Appearance: Patient appears to be stated age is alert, directable, and attempts to cooperate. Patient appears to have poor hygiene and grooming. Disheveled hair. Behavior: Patient is seated without any agitated behavior. Looking around the room at times. Bizarre at times. Speech: Patient's speech is fluent and nonpressured. [place] monotone. Mood/Affect: Patient reports their mood is "fine", affect is congruent and blunted. Suicidality/Homicidality: Patient denies having any homicidal ideation intent or plan. Denies any suicidal ideations intent or plan Perceptions: Patient denies any visual hallucinations and denies any auditory hallucinations Though content/process: [place], logical, poverty of content. Memory and concentration: AOX3, grossly intact for the purposes of this session. Cannot spell "WORLD" backwards Judgment and insight: poor/impulsive. STRENGTHS/WEAKNESSES: strength is that patient is resilient. Weakness is that patient has poor judgment and is impulsive INTELLECT: Below average IMPRESSIONS: Schizoaffective disorder unspecified PLAN: -Patient is admitted under voluntary status to MHU for stabilization of psychiatric symptoms and safety. Patient signed adult voluntary form and medication consent and is placed in patient's chart. -Medications : Will start patient on paliperidone by mouth 3 mg twice a day for psychosis with the plan to transition patient onto [facility] to insure compliance. We'll discontinue close relatives time as patient has had difficulties following up for blood draws. Continue Lexapro 20 mg daily for mood. -Ativan and Geodon PRN for agitation/aggression -Patient was informed of the risks, benefits and side effects of the medication and patient verbally consented to taking the medications. Patient signed med consent form and was placed in chart. -Internal Medicine consult to perform medical evaluation and physical. -NRT -not needed as patient does not smoke. -SW on board for discharge planning. Encourage patient to participate in groups to work on coping skills. 01/25/20 12:36
[2020-01-25 13:00] LABS: Glucose,Whole Blood 91 mg/dL (75-99)
[2020-01-25 14:09] LABS: Glucose,Whole Blood 129 mg/dL (75-99)
[2020-01-25 17:34] LABS: Glucose,Whole Blood 91 mg/dL (75-99)
[2020-01-25 20:13] LABS: Glucose,Whole Blood 106 mg/dL (75-99)
[2020-01-25] MEDS: PALIPERIDONE 3 MG TAB.ER.24 PO SCH (22:04)
--- NOTE | 2020-01-25 23:30 | P.MDCNMH ---
History of Present Illness H&P Date: 01/25/20 Chief Complaint: Medical evaluation Patient was not seen on January 23 as he was sleeping Patient was seen on January 24 54-year-old male with diabetes and hypertension Upon interviewing the patient he was very calm but he keeps looking around and when asked he says that nothing is going on he denies any visual or auditory hallucinations. When asked why he is at the hospital he is not sure he denies threatening to kill anyone or any suicidal ideation patient did not open up about why he is here. He denies any physical complaints. Patient is not very talkative he only answers leading questions with yes and no and he denied any coughing fevers or chills he denied any physical complaints at this time ER noted that the patient was petitioned by the rubbing bed operator and brought in by police due to threatening [facility] and threatening to kill himself. [facility] noted that he was not compliant with his medications Review of Systems Pertinent positives as noted in HPI. All other systems were reviewed and are negative Past Medical History Past Medical History: Diabetes Mellitus, Hyperlipidemia, Hypertension History of Any Multi-Drug Resistant Organisms: None Reported Past Surgical History: No Surgical Hx Reported Past Anesthesia/Blood Transfusion Reactions: No Reported Reaction Past Psychological History: Schizoaffective Disorder Smoking Status: Former smoker Past Alcohol Use History: None Reported Past Drug Use History: None Reported - Past Family History Father Family Medical History: CVA/TIA Medications and Allergies Home Medications Medication Instructions Recorded Confirmed Type Escitalopram [Lexapro] 20 mg PO DAILY 12/27/16 01/24/20 History cloZAPine [Clozaril] 300 mg PO DAILY 12/27/16 01/24/20 History Allergies Allergy/AdvReac Type Severity Reaction Status Date / Time No Known Allergies Allergy Verified 01/24/20 15:16 Physical Exam Vitals: Vital Signs Temp Pulse Pulse Resp BP BP Pulse Ox 01/24/20 19:28 97 F L 78 14 136/76 98 01/24/20 15:00 18 01/24/20 13:56 98.1 F 96 18 141/96 99 Intake and Output 01/24/20 01/24/20 01/24/20 06:59 14:59 22:59 Other: Weight 72.575 kg 67.585 kg Constitutional: No acute distress, conversant, pleasant Eyes: Anicteric sclerae, moist conjunctiva, no lid-lag Pupils equal round reactive to light ENMT: NC/AT Oropharynx clear, no erythema, or exudates Neck: Supple, FROM, no masses, or JVD No carotid bruits No thyromegaly Lungs: Clear to auscultation Clear to percussion Normal respiratory effort, no accessory muscle use Cardiovascular: Heart regular in rate and rhythm, No murmurs, gallops, or rubs No peripheral edema Abdominal: Soft Nontender, no guarding, rebound or rigidity Abdomen moving with respiration Normoactive bowel sounds No hepatomegaly, No splenomegaly No palpable mass No abdominal wall hernia noted Skin: Normal temperature, tone, texture, turgor No induration No subcutaneous nodules No rash, lesions No ulcers Extremities: No digital cyanosis No clubbing Pedal pulses intact and symmetrical Radial pulses intact and symmetrical No calf tenderness Psychiatric: Alert and oriented to person, place and time paranoid affect Poor judgement Neuro Muscles Strength 5/5 in all 4 extremities Sensation to light touch grossly present throughout Cranial nerves II-XII grossly intact No focal sensory deficits Lymphatics: no palpable cervical or supraclavicular , or inguinal lymph nodes Cranial Nerve Examination - Cranial Nerves Cranial Nerve II- Optic: Intact Cranial Nerve III- Oculomotor: Intact Cranial Nerve IV- Trochlear: Intact Cranial Nerve V- Trigeminal: Intact Cranial Nerve - Abducens: Intact Cranial Nerve VII- Facial: Intact Cranial Nerve VIII- Auditory: Intact Cranial Nerve IX- Glossopharyngeal: Intact Cranial Nerve X- Vagus: Intact Cranial Nerve XI- Accessory: Intact Cranial Nerve XII- Hypoglossal: Intact Assessment and Plan Assessment: Schizophrenia management per psych Diabetes mellitus Insulin sliding scale Check A1c Patient denied any chronic medical conditions denied taking any medications at home Patient denies any smoking drugs or alcohol Thank you for allowing us to participate in the care of this patient. We will follow peripherally. Do not hesitate to contact us with questions. Someone can be reached from the [facility] hospitalist group at all hours of the day at [phone].
[2020-01-26 07:47] LABS: Glucose,Whole Blood 96 mg/dL (75-99)
[2020-01-26] MEDS: INSULIN ASPART (NovoLOG) 100 UNIT/ML VIAL SQ SCH ×4 (09:32→22:05)
[2020-01-26] MEDS: ESCITALOPRAM 20 MG TAB PO SCH (09:33)
[2020-01-26] MEDS: PALIPERIDONE 3 MG TAB.ER.24 PO SCH ×2 (09:33→22:06)
[2020-01-26 13:01] LABS: Glucose,Whole Blood 76 mg/dL (75-99)
--- NOTE | 2020-01-26 17:38 | P.PN ---
Progress Note - Text Progress Note Date: 01/26/20 Subjective: Patient was seen today as a cross coverage for Dr. Fallon. The patient was evaluated, chart reviewed, case discussed with the treatment team. Patient reported good sleep last night. Appetite was reported as "fair ". Patient has not been going to many groups and other unit activities. The patient is compliant with his medications and denies any adverse reactions. Patient presents disheveled and not fully oriented to place. He denies feeling depressed, hopeless or suicidal. And he denies any hallucinations, paranoid ideation or delusions. No manic symptoms have been reported or noticed. Objective: Vitals has been reviewed. Mental status examination; Appearance: The patient appears stated age, disheveled, no specific features. Gait/posture: Normal gait, Normal arm swinging: No abnormal movements. Attitude and behavior: engaged, cooperative, eye contact. Motor activity: Normal psychomotor activity Speech: Normal rate, tone. Mood: "Fine" Affect: Constricted Thought form: goal-directed, linear, coherent. Thought content: Non-delusional, denies suicidal thoughts, denies homicidal thoughts, denies intentions or plans. Perception: Denies any auditory or visual hallucinations Attention: No impairment. Orientation: Patient patient was fully oriented to time, person and situation. Patient was not fully oriented to place Insight: Patient has fair insight about his psychiatric disorder. Judgment: Patient has fair judgment about his psychiatric treatment. Assessment: Schizoaffective disorder, unspecified. Plan: Continue inpatient level of care due to need for further stabilization and monitoring Precautions: Continue 15 minutes check for safety. Consider medical consultation if any acute medical issues arise. Provide the patient individual, group therapy, substance use disorder counseling to give better insight and learn coping skills. Continue follow-up with the patient daily to monitor progress of mood instability and psychotic symptoms. Medications: Continue Invega for mood stabilization and psychosis. Patient is considered for long-acting injectable. Continue Lexapro for depression and anxiety. Continue when necessary medication for agitation and severe anxiety. Continue non-psychiatric medications insulin. Discharge patient to OUTPATIENT services upon a stabilization
[2020-01-26 17:40] LABS: Glucose,Whole Blood 102 mg/dL (75-99)
[2020-01-26 20:06] LABS: Glucose,Whole Blood 104 mg/dL (75-99)
[2020-01-27 07:56] LABS: Glucose,Whole Blood 110 mg/dL (75-99)
[2020-01-27] MEDS: INSULIN ASPART (NovoLOG) 100 UNIT/ML VIAL SQ SCH ×4 (08:00→20:15)
[2020-01-27] MEDS: ESCITALOPRAM 20 MG TAB PO SCH (09:52)
[2020-01-27] MEDS: PALIPERIDONE 3 MG TAB.ER.24 PO SCH ×2 (09:52→21:16)
[2020-01-27 12:33] LABS: Glucose,Whole Blood 113 mg/dL (75-99)
--- NOTE | 2020-01-27 15:32 | P.PN ---
Progress Note - Text Progress Note Date: 01/27/20 Subjective: Patient was seen today as a cross coverage for Dr. Faloln. The patient was evaluated, chart reviewed, case discussed with the treatment team. Patient reports continued to have good sleep and he denies any appetite problems. Patient has been very limited in attending groups and other activities, but continued to take his medications with no side effects reported. Patient presents the same partially disheveled, but denies feeling depressed, hopeless or suicidal. Reports feeling stable emotionally and he denies any manic or psychotic symptoms. Objective: Mental status examination; Appearance: The patient appears stated age, partially disheveled, no specific features. Gait/posture: Normal gait, Normal arm swinging: No abnormal movements. Attitude and behavior: engaged, cooperative, eye contact. Motor activity: Normal psychomotor activity Speech: Normal rate, tone. Mood: "Fine" Affect: Constricted Thought form: goal-directed, linear, coherent. Thought content: Non-delusional, denies suicidal thoughts, denies homicidal thoughts, denies intentions or plans. Perception: Denies any auditory or visual hallucinations Attention: No impairment. Orientation: Patient patient was fully oriented to time, person and situation. Patient was not fully oriented to place Insight: Patient has fair insight about his psychiatric disorder. Judgment: Patient has fair judgment about his psychiatric treatment. Assessment: Schizoaffective disorder, unspecified. Plan: Continue inpatient level of care due to need for further stabilization and monitoring Precautions: Continue 15 minutes check for safety. Consider medical consultation if any acute medical issues arise. Provide the patient individual, group therapy, substance use disorder counseling to give better insight and learn coping skills. Continue follow-up with the patient daily to monitor progress of mood instability and psychotic symptoms. Medications: Continue Invega for mood stabilization and psychosis. Patient is considered for long-acting injectable. Continue Lexapro for depression and anxiety. Continue when necessary medication for agitation and severe anxiety. Continue non-psychiatric medications insulin. Discharge patient to OUTPATIENT services upon a stabilization
[2020-01-27 16:07] LABS: Appearance,Urine Clear (Clear); Bilirubin,Urine Negative (Negative); Blood,Urine Small (Negative); Calcium Oxalate Crystals,Urine Rare /hpf; Color,Urine Yellow; Glucose,Urine (UA) Negative (Negative); Ketones,Urine Negative (Negative); Leukocyte Esterase,Urine Negative (Negative); Mucus,Urine Few /hpf; Nitrite,Urine Negative (Negative); Protein,Urine Trace (Negative); RBC,Urine 6 /hpf (0-5); Specific Gravity,Urine 1.031 (1.001-1.035); Sperm,Urine Occasional /hpf; Squamous Epithelial Cell,Urine <1 /hpf (0-4); WBC,Urine 1 /hpf (0-5)
[2020-01-27 17:49] LABS: Glucose,Whole Blood 105 mg/dL (75-99)
[2020-01-27 20:12] LABS: Glucose,Whole Blood 93 mg/dL (75-99)
[2020-01-28 06:51] VITALS: RESP 16
[2020-01-28 07:56] LABS: Glucose,Whole Blood 98 mg/dL (75-99)
[2020-01-28] MEDS: INSULIN ASPART (NovoLOG) 100 UNIT/ML VIAL SQ SCH ×4 (08:33→21:45)
[2020-01-28] MEDS: ESCITALOPRAM 20 MG TAB PO SCH (08:35)
[2020-01-28] MEDS: PALIPERIDONE 3 MG TAB.ER.24 PO SCH ×2 (08:35→21:45)
--- NOTE | 2020-01-28 10:02 | P.PN ---
Progress Note - Text Progress Note Date: 01/28/20 Interval History: Patient was seen wandering the hallways and was directable and agreeable to chanel yoon with flex o writer operator in the office. Patient just took his medications as morning and appeared to be more appropriate during conversation. Patient continues to have poverty of content and poverty of speech. He did not offer any overnight complaints. He continues to have a constricted affect. He states that he was able to sleep well last night. He claims that he has been going to groups however does not elaborate on the content of it. He states that his mood is "okay" and denies any anxiety at this time. He did not endorse any delusions or paranoia. He states his appetite is fair. At this time patient denies any suicidal or homical ideations, intent or plan. Patient denies any auditory, visual hallucinations. Patient denies any side effects from the medications and has been compliant with meds. Mental Status Exam: General Appearance: Patient appears to be stated age is alert, directable, and attempts to cooperate. Patient appears to have improving hygiene and grooming. Behavior: Patient is seated without any agitated behavior. Looking around the room at times. Speech: Patient's speech is fluent and nonpressured. [place], monotone. Mood/Affect: Patient reports their mood is "ok", affect is congruent and constricted Suicidality/Homicidality: Patient denies having any homicidal ideation intent or plan. Denies any suicidal ideations intent or plan Perceptions: Patient denies any visual hallucinations and denies any auditory hallucinations Though content/process: [place], logical, poverty of content. Memory and concentration: AOX3, grossly intact for the purposes of this session. Judgment and insight: poor/impulsive, improving mildly Assessment Schizoaffective disorder unspecified Plan: -Patient continues to meet criteria for inpatient psychiatric admission for symptom stabilization and safety. Patient has signed adult voluntary form and medication consent and was placed in patient's chart. -Medications: We'll continue with paliperidone 3 mg twice a day for psychosis. We'll continue to consider transition onto Invega Sustenna to ensure compliance. Continue Lexapro 20 mg daily for mood. -When necessary Ativan and Geodon for agitation/aggression. -NRT -not needed as patient does not smoke. -SW on board for discharge planning. Encouraged the patient to participate in milieu. Likely discharge in 1-2 days back home.
[2020-01-28 11:17] LABS: Urine Alcohol Negative (Negative); Urine Barbiturate Negative (Negative); Urine Cocaine Negative (Negative); Urine Methadone Negative (Negative); Urine Opiates Negative (Negative); Urine Phencyclidine Negative (Negative)
[2020-01-28] MEDS ORDERED: PALIPERIDONE IM 234 MG/1.5 ML SYG IM STA (11:55)
[2020-01-28 12:35] LABS: Glucose,Whole Blood 84 mg/dL (75-99)
[2020-01-28 17:41] LABS: Glucose,Whole Blood 113 mg/dL (75-99)
[2020-01-28 20:06] LABS: Glucose,Whole Blood 132 mg/dL (75-99)
[2020-01-29 02:08] VITALS: BP 136/75; PULSE 77; TEMP 97.9
[2020-01-29 07:57] LABS: Glucose,Whole Blood 99 mg/dL (75-99)
[2020-01-29] MEDS: INSULIN ASPART (NovoLOG) 100 UNIT/ML VIAL SQ SCH ×2 (08:15→13:24)
--- NOTE | 2020-01-29 09:03 | P.DS ---
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 Patient presented to the hospital yes terday on a tack picker order signed by the technical support technician after patient told [facility] staff that he was going to kill himself or anybody else to come to his house according to ER report. Patient apparently then denied saying these comments in the ER. Patient's UDS was negative. Patient was brought in on a petition and certification period patient has a history of schizophrenia and was previously" Clozaril and Lexapro. Patient was fairly superficial concrete and was a poor historian. Patient again denied any of the allegations on the petition and certification and states that he did not threaten anybody. He spoke briefly about his medication and states that he is taking his Clozaril every day and denied going in for blood work. Patient claims that he has been dealing with schizoaffective disorder for 10 years now. Patient was bizarrely looking around the room at times. He denied any changes in his mood at this time denies any depressive or manic symptoms. He denies any anxiety. He claims that he isn't sleeping fairly and has a fair appetite. Patient denies any suicidal or homicidal ideations intent or plan. At this time patient denies any auditory or visual hallucinations. Patient denies any flight of ideas racing thoughts and increased in goal directed behavior. Patient admits to using no recreational drugs at this time or cigarettes. Hospital course: Upon admission to the unit patient was initially bizarre however directable and agreeable to commence treatment. Patient got along well with other patients on the unit and followed unit protocol. Patient was compliant with the medications and denied any side effects throughout hospital course. Patient was started on paliperidone by mouth 3 mg twice a day for psychosis/mood stabilization and patient's Clozaril was discontinued. Patient was also continued on his home dose of Lexapro 20 mg daily for mood. Patient was transitioned onto Invega Sustenna 234 mg IM loading dose given on 01/28/2020 and will be due for his next dose of 156 mg IM on 02/04/2020 and will be due for his monthly maintenance dose of 117 mg on 02/25/2020. Patient spoke of his stressors and engaged in therapy both group and individual. Patient was also seen by medical team for history and physical exam. Throughout the course of the hospitalization patient gradually improved with regards to mood, psychosis, sleep and became future oriented with improved insight and judgment. On the day of discharge patient denied any suicidal or homicidal ideations intent or plan denied any auditory or visual hallucinations. Patient endorsed wanting to live for his health and his future. The patient denied any access to guns or weapons. Patient denied any paranoia and did not endorse any delusions. Patient does not have a significant history of substance abuse however was counseled on abstaining from all substances including alcohol and marijuana. Patient was also counseled on the medications and need for regular compliance and was encouraged to follow-up with their outpatient appointment for mental health and also for primary care. Mental status exam: General Appearance: Patient appears to be stated age is alert, directable, and attempts to be cooperative. Patient is in no acute distress and has improved hygiene and grooming Behavior: Patient is calmly seated without any agitated behavior. Attempts to be cooperative. Speech: Patient's speech is fluent and nonpressured. Mood/Affect: Patient reports their mood is "good", affect is congruent and constricted. Suicidality/Homicidality: Patient denies having any suicidal or homicidal ideation intent or plan. Perceptions: Patient denies any auditory or visual hallucinations. Though content/process: There is no evidence of any delusional thought content and thought process is linear and goal-directed. [place]. Memory and concentration: AOX3, grossly intact for the purposes of this session. Can spell "WORLD" backwards correctly. Judgment and insight: Improved with guarded prognosis Impression: Schizoaffective disorder unspecified Plan: -Continue with discharge today as patient has improved and stabilized psychiatrically and is not currently an imminent threat to himself and/or others. -Continue medications: Patient was given Invega Sustenna 234 mg IM loading dose given on 01/28/2020 and will be due for his next dose of 156 mg IM on 02/04/2020 and will be due for his monthly maintenance dose of 117 mg on 02/25/2020. Patient will be discontinued off of by mouth paliperidone at this time. Patient to be continued on Lexapro 20 mg daily for mood -Patient was counseled on the need for medication compliance and appropriate follow-up at mental health and also primary care for medical issues. Patient verbalized understanding and agreed. -Social work to arrange for and conduct family meeting to ensure safety upon discharge and answer any questions/concerns. Social work also to arrange for patients follow up appointments with [facility] for psychiatric care along with follow up with primary care provider. -Patient counseled on abstaining from recreational drugs and marijuana and alcohol. Was informed/educated on the adverse effects on their physical and mental health. Patient verbally agreed and understood. -Patient was instructed to return to the hospital or seek immediate medical care if their psychiatric or medical symptoms do worsen or reoccur. Allergies Allergy/AdvReac Type Severity Reaction Status Date / Time No Known Allergies Allergy Verified 01/24/20 15:16 Laboratory Results POC Glucose (mg/dL) 99 mg/dL (75-99) 01/29/20 07:55 POC Glu Gear Tooth Grinding Machine Operator ID Magdiel Werner 01/29/20 07:55 Urine Color Yellow 01/27/20 15:00 Urine Appearance Clear (Clear) 01/27/20 15:00 Urine pH 5.0 (5.0-8.0) 01/27/20 15:00 Ur Specific [place] 1.031 (1.001-1.035) 01/27/20 15:00 Urine Protein Trace (Negative) H 01/27/20 15:00 Urine Glucose (UA) Negative (Negative) 01/27/20 15:00 Urine Ketones Negative (Negative) 01/27/20 15:00 Urine Blood Small (Negative) H 01/27/20 15:00 Urine Nitrite Negative (Negative) 01/27/20 15:00 Urine Bilirubin Negative (Negative) 01/27/20 15:00 Urine Urobilinogen 2.0 mg/dL (<2.0) 01/27/20 15:00 Ur Leukocyte Esterase Negative (Negative) 01/27/20 15:00 Urine RBC 6 /hpf (0-5) H 01/27/20 15:00 Urine WBC 1 /hpf (0-5) 01/27/20 15:00 Ur Squamous Epith Cells <1 /hpf (0-4) 01/27/20 15:00 Calcium Oxalate Crystal Rare /hpf (None) H 01/27/20 15:00 Urine Mucus Few /hpf (None) H 01/27/20 15:00 Urine Sperm Occasional /hpf (None) H 01/27/20 15:00 Urine Opiates Screen Negative ng/mL (Negative) 01/27/20 15:00 Ur Oxycodone Screen Not Detected (NotDetected) 01/24/20 14:36 Urine Methadone Screen Negative ng/mL (Negative) 01/27/20 15:00 Ur Propoxyphene Screen Negative ng/mL (Negative) 01/27/20 15:00 Ur Barbiturates Screen Not Detected (NotDetected) 01/24/20 14:36 Urine Barbiturates Negative ng/mL (Negative) 01/27/20 15:00 U Tricyclic Antidepress Not Detected (NotDetected) 01/24/20 14:36 Ur Phencyclidine Scrn Negative ng/mL (Negative) 01/27/20 15:00 Ur Amphetamine Screen Negative ng/mL (Negative) 01/27/20 15:00 Ur Amphetamines Screen Not Detected (NotDetected) 01/24/20 14:36 U Methamphetamines Scrn Not Detected (NotDetected) 01/24/20 14:36 U Benzodiazepines Scrn Negative ng/mL (Negative) 01/27/20 15:00 Urine Cocaine Screen Negative ng/mL (Negative) 01/27/20 15:00 U Cannabinoids Screen Negative ng/mL (Negative) 01/27/20 15:00 U Marijuana (THC) Screen Not Detected (NotDetected) 01/24/20 14:36 Urine Alcohol Negative mg/dL (Negative) 01/27/20 15:00 Vital Signs Temp 97.9 F 01/29/20 02:07 Pulse 77 01/29/20 02:07 Resp 16 01/29/20 02:07 BP 136/75 01/29/20 02:07 Pulse Ox 98 01/29/20 02:07 Patient Condition at Discharge: Stable Plan - Discharge Summary New Discharge Prescriptions: Continue Escitalopram [Lexapro] 20 mg PO DAILY 30 Days tab Discontinued cloZAPine [Clozaril] 300 mg PO DAILY Discharge Medication List Escitalopram [Lexapro] 20 mg PO DAILY 30 Days tab 01/29/20 [Rx] Follow up Appointment(s)/Referral(s): [facility] [Primary Care Provider] - 1-2 days Activity/Diet/Wound Care/Special Instructions: Activity and diet as tolerated. Avoid the use of street drugs and alcohol. Take all medications as prescribed. When you are in need of refills on your medications please contact your medical provider and/or outpatient psychiatrist to have this done. Please go to scheduled outpatient appointment for aftercare treatment. If symptoms return or become worse, call the crisis line at and/or go to the nearest emergency room for evaluation Discharge Disposition: HOME SELF-CARE
[2020-01-29] MEDS ORDERED: PALIPERIDONE 3 MG TAB.ER.24 PO ONE (10:00)
[2020-01-29] MEDS: ESCITALOPRAM 20 MG TAB PO SCH (11:09)
[2020-01-29 12:54] LABS: Glucose,Whole Blood 107 mg/dL (75-99)
== END 2020-01-29 14:10 | disposition home or self-care (01) | DRG 885 ==
LOC: EC 13:49 → 3MHU 18:34
PROVIDERS: ADMIT Psychiatry & Neurology Psychiatry; ATTEND Psychiatry & Neurology Psychiatry
DX: F25.9 Schizoaffective disorder, unspecified (principal); E11.9 Type 2 diabetes mellitus without complications; E78.5 Hyperlipidemia, unspecified; I10 Essential (primary) hypertension; Z60.2 Problems related to living alone; Z87.891 Personal history of nicotine dependence; Z91.14 Patient's other noncompliance with medication regimen; Z79.899 Other long term (current) drug therapy; Z82.3 Family history of stroke
CPT/HCPCS: 80306; 81001; 82075; 99285

== ENCOUNTER 2021-01-30 10:58 | Inpatient (IN) | payer MEDICARE, OTHER ==
[2021-01-30] MEDS ORDERED: SODIUM CHLORIDE 0.9% 1,000 ML IV STA (11:16)
--- NOTE | 2021-01-30 11:30 | ED ---
General Adult HPI <ShelbiemargaretteJose Roberto aguilar Regino - Last Filed: 01/30/21 13:57> - General Source: patient, EMS Mode of arrival: EMS Limitations: no limitations <Marielos Brewster - Last Filed: 01/30/21 14:24> - General Chief complaint: Fall Stated complaint: Fall Time Seen by Provider: 01/30/21 11:00 - History of Present Illness Initial comments: 51-year-old male patient with history of schizophrenia presents to the emergency department today for evaluation after experiencing a fall. Patient reports to me that he was waiting to catch the bus and fell because her legs were too weak to hold him up any longer. He did tell nursing staff that he tripped and fell. Patient states he did hit his head denies any loss of consciousness. He is reporting some mild neck pain. He is also reporting shortness of breath and chest pain, is unable to state when this started. Reports some dizziness. Denies any numbness or tingling to the extremities. Denies any headache. Patient lives alone. Does have a guardian. Apparently receives an injection once a month at [facility]. Patient denies any recent rash, fever, chills, cough, abdominal pain, nausea, vomiting, diarrhea, constipation, back pain, numbness, tingling, hematuria, dysuria, urinary urgency, urinary frequency, headache, visual changes, or any other complaints. (Marielos Brewster) - Related Data Home Medications Medication Instructions Recorded Confirmed Paliperidone IM [Invega Sustenna] 156 mg IM Q28D 01/30/21 01/30/21 Allergies Allergy/AdvReac Type Severity Reaction Status Date / Time No Known Allergies Allergy Verified 01/30/21 13:17 Review of Systems ROS Other: All systems not noted in ROS Statement are negative. <Jose Roberto Arita - Last Filed: 01/30/21 13:57> ROS Other: All systems not noted in ROS Statement are negative. <Marielos Brewster - Last Filed: 01/30/21 14:24> ROS Statement: Those systems with pertinent positive or pertinent negative responses have been documented in the HPI. Past Medical History Past Medical History: Diabetes Mellitus, Hyperlipidemia, Hypertension History of Any Multi-Drug Resistant Organisms: None Reported Past Surgical History: No Surgical Hx Reported Past Anesthesia/Blood Transfusion Reactions: No Reported Reaction Past Psychological History: Schizoaffective Disorder Smoking Status: Current every day smoker Past Alcohol Use History: None Reported Past Drug Use History: None Reported - Past Family History Father Family Medical History: CVA/TIA <Marielos Brewster Adrian - Last Filed: 01/30/21 14:24> General Exam Limitations: no limitations General appearance: alert, in no apparent distress, other (Physical well- developed, well-nourished adult male patient in no acute distress. Vital signs upon presentation are temperature 98.0F, pulse 110, respirations 18, blood pressure 113/60, pulse ox 100% on room air.) Eye exam: Present: PERRL, EOMI, other (Small abrasion to left eyebrow. No hyphema. No conjunctival injection.). Absent: scleral icterus, conjunctival inj ection, periorbital swelling ENT exam: Present: normal exam, normal oropharynx, mucous membranes moist, other Neck exam: Present: normal inspection, other (No tenderness or bony step off noted with firm midline palpation.). Absent: tenderness, meningismus, full ROM (c-collar in place), lymphadenopathy Respiratory exam: Present: normal lung sounds bilaterally. Absent: respiratory distress, wheezes, rales, rhonchi, stridor Cardiovascular Exam: Present: normal rhythm, tachycardia, normal heart sounds. Absent: systolic murmur, diastolic murmur, rubs, gallop, clicks GI/Abdominal exam: Present: soft, normal bowel sounds. Absent: distended, tenderness, guarding, rebound, rigid Neurological exam: Present: alert, oriented X3, CN II-XII intact Psychiatric exam: Present: normal affect, normal mood Skin exam: Present: warm, dry, intact, normal color. Absent: rash <Marielos Brewster Adrian - Last Filed: 01/30/21 14:24> Course Vital Signs 01/30/21 01/30/21 01/30/21 11:04 11:33 13:09 Temperature 98 F Pulse Rate 110 H 104 H 100 Respiratory 18 18 18 Rate Blood Pressure 113/60 103/55 95/60 O2 Sat by Pulse 100 100 100 Oximetry EKG Findings - EKG Comments: EKG Findings:: EKG obtained at 1105 shows sinus tachycardia with frequent PVCs. Ventricular rate is 109, DC interval 134, QRS duration 98, QT 338, QTC 455. No evidence of ST elevation or depression. <Marielos Brewster - Last Filed: 01/30/21 14:24> Medical Decision Making - Lab Data Result diagrams: 01/30/21 11:21 01/30/21 12:51 <LylaJose Roberto Lacy - Last Filed: 01/30/21 13:57> - Lab Data Result diagrams: 01/30/21 11:21 01/30/21 12:51 - EKG Data -: EKG Interpreted by Me - Radiology Data Radiology results: report reviewed, image reviewed <Marielos Brewster - Last Filed: 01/30/21 14:24> - Medical Decision Making 55-year-old male with fall, generalized weakness. Patient noted to have a sodium 107 which is repeated, this is 109. Representing a significant hyponatremia. Other than the weakness the patient is asymptomatic. No reported seizure activity. He is alert. He is watching TV in the room with stable vitals. He will be admitted to the ICU bed for close monitoring. Case discussed with the admitting physician, the herbicide sprayer professor of environmental science and the airline reservation agent. (Jose Roberto Arita) 55-year-old male patient presented to the emergency department today for evaluation after having a fall. Upon arrival patient states he was experiencing generalized weakness unable to hold himself up. Did hit his head. Denies loss of consciousness. Physical examination did reveal left periorbital abrasion. He is neurologically intact no focal deficits at this time. He has had no noted seizure activity. Labs reviewed and did reveal decreased sodium which was 107, this was repeated at 109. I did add on labs. Urinalysis is pending. He'll be admitted to the hospital for further evaluation and monitoring. My attending physician Dr. Arita discussed case with airline reservation agent and admitting. I discussed case with Dr. Garrett. (Marielos Brewster) - Lab Data Lab Results 01/30/21 01/30/21 01/30/21 Range/Units 11:21 11:21 11: WBC 7.2 (3.8-10.6) k/uL RBC 3.49 L (4.30-5.90) m/uL Hgb 11.6 L (13.0-17.5) gm/dL Hct 30.8 L (39.0-53.0) % MCV 88.2 (80.0-100.0) fL MCH 33.3 (25.0-35.0) pg MCHC 37.8 H (31.0-37.0) g/dL RDW 16.0 H (11.5-15.5) % Plt Count 208 (150-450) k/uL MPV 6.7 Neutrophils % 86 % Lymphocytes % 6 % Monocytes % 6 % Eosinophils % 0 % Basophils % 0 % Neutrophils # 6.2 (1.3-7.7) k/uL Lymphocytes # 0.4 L (1.0-4.8) k/uL Monocytes # 0.4 (0-1.0) k/uL Eosinophils # 0.0 (0-0.7) k/uL Basophils # 0.0 (0-0.2) k/uL Anisocytosis Slight PT 11.3 (9.0-12.0) sec INR 1.1 (<1.2) APTT 22.9 (22.0-30.0) sec Sodium 107 L* (137-145) mmol/L Potassium 4.4 (3.5-5.1) mmol/L Chloride 75 L (98-107) mmol/L Carbon Dioxide 20 L (22-30) mmol/L Anion Gap 12 mmol/L BUN 21 H (9-20) mg/dL Creatinine 1.34 H (0.66-1.25) mg/dL Est GFR (CKD-EPI)AfAm 69 (>60 ml/min/1.73 sqM) Est GFR (CKD-EPI)NonAf 60 (>60 ml/min/1.73 sqM) Glucose 86 (74-99) mg/dL Uric Acid (3.5-8.5) mg/dL Calcium 8.7 (8.4-10.2) mg/dL Phosphorus (2.5-4.5) mg/dL Magnesium 1.9 (1.6-2.3) mg/dL Total Bilirubin 0.8 (0.2-1.3) mg/dL AST 65 H (17-59) U/L ALT 45 (4-49) U/L Alkaline Phosphatase 52 (38-126) U/L Troponin I (0.000-0.034) ng/mL Total Protein 4.9 L (6.3-8.2) g/dL Albumin 3.0 L (3.5-5.0) g/dL TSH (0.465-4.680) mIU/L Cortisol ug/dL 01/30/21 01/30/21 Range/Units 11:21 12:51 WBC (3.8-10.6) k/uL RBC (4.30-5.90) m/uL Hgb (13.0-17.5) gm/dL Hct (39.0-53.0) % MCV (80.0-100.0) fL MCH (25.0-35.0) pg MCHC (31.0-37.0) g/dL RDW (11.5-15.5) % Plt Count (150-450) k/uL MPV Neutrophils % % Lymphocytes % % Monocytes % % Eosinophils % % Basophils % % Neutrophils # (1.3-7.7) k/uL Lymphocytes # (1.0-4.8) k/uL Monocytes # (0-1.0) k/uL Eosinophils # (0-0.7) k/uL Basophils # (0-0.2) k/uL Anisocytosis PT (9.0-12.0) sec INR (<1.2) APTT (22.0-30.0) sec Sodium 109 L* (137-145) mmol/L Potassium 4.2 (3.5-5.1) mmol/L Chloride 79 L (98-107) mmol/L Carbon Dioxide 21 L (22-30) mmol/L Anion Gap 9 mmol/L BUN 21 H (9-20) mg/dL Creatinine 1.30 H (0.66-1.25) mg/dL Est GFR (CKD-EPI)AfAm 72 (>60 ml/min/1.73 sqM) Est GFR (CKD-EPI)NonAf 62 (>60 ml/min/1.73 sqM) Glucose 81 (74-99) mg/dL Uric Acid 5.7 (3.5-8.5) mg/dL Calcium 7.9 L (8.4-10.2) mg/dL Phosphorus 3.3 (2.5-4.5) mg/dL Magnesium (1.6-2.3) mg/dL Total Bilirubin (0.2-1.3) mg/dL AST (17-59) U/L ALT (4-49) U/L Alkaline Phosphatase (38-126) U/L Troponin I 0.023 (0.000-0.034) ng/mL Total Protein (6.3-8.2) g/dL Albumin (3.5-5.0) g/dL TSH 1.380 (0.465-4.680) mIU/L Cortisol 26 ug/dL - Radiology Data CT brain and C-spine without contrast was obtained. Report reviewed in its entirety. Impression by Dr. Rey shows no acute fracture dislocation evident in the cervical spine. Scoliosis and multilevel hypertrophic changes. No acute intracranial hemorrhage, mass effect, or midline shift is seen. Degenerative and nonspecific white matter changes. Has a small right pleural effusion incidentally noted with left perihilar infiltrate. Two-view x-ray of the chest is obtained. Report was reviewed in its entirety. Impression by Dr. Sykes shows unchanged elevation to the left hemidiaphragm. New airspace disease of left midlung zone. (Marielos Brewster) Disposition <Jose Roberto Arita - Last Filed: 01/30/21 13:57> Decision to Admit Reason: Admit from EC Decision Date: 01/30/21 Decision Time: 14:24 <Marielos Brewster - Last Filed: 01/30/21 14:24> Clinical Impression: Hyponatremia, Pneumonia involving left lung Disposition: ADMITTED IP TO THIS [facility] Condition: Serious Referrals: None,Stated [Primary Care Provider] - 1-2 days
[2021-01-30 11:45] LABS: Anisocytosis Slight; Basophils % (A) 0 %; Eosinophils % (A) 0 %; HCT 30.8 % (39.0-53.0); HGB 11.6 gm/dL (13.0-17.5); Lymphocytes # (A) 0.4 k/uL (1.0-4.8); Lymphocytes % (A) 6 %; MCH 33.3 pg (25.0-35.0); MCHC 37.8 g/dL (31.0-37.0); MCV 88.2 fL (80.0-100.0); Mean Platelet Volume 6.7; Monocytes # (A) 0.4 k/uL (0-1.0); Monocytes % (A) 6 %; Neutrophils # (A) 6.2 k/uL (1.3-7.7); Neutrophils % (A) 86 %; Platelet Count 208 k/uL (150-450); RBC 3.49 m/uL (4.30-5.90); WBC 7.2 k/uL (3.8-10.6)
[2021-01-30 11:55] LABS: Calcium 8.7 mg/dL (8.4-10.2); Magnesium 1.9 mg/dL (1.6-2.3); Potassium 4.4 mmol/L (3.5-5.1); Total Bilirubin 0.8 mg/dL (0.2-1.3); Total Protein 4.9 g/dL (6.3-8.2)
[2021-01-30 11:57] LABS: INR 1.1 (<1.2); Partial Thromboplastin Time 22.9 sec (22.0-30.0); Prothrombin Time 11.3 sec (9.0-12.0)
--- NOTE | 2021-01-30 12:17 | CT ---
EXAMINATION TYPE: CT brain wesley ryan DATE OF EXAM: 01/30/2021 COMPARISON: 12/31/2016 HISTORY: Pain CT DLP: 1367.3 mGycm Automated exposure control for dose reduction was used. TECHNIQUE: CT scan of the head and cervical spine are performed without contrast. FINDINGS: Mild generalized degenerative change. Diffuse low-attenuation the white matter is nonspec ific but most typical remote white matter ischemia. Changes of chronic sinusitis. Orbits are symmetri c. Hypertrophic and degenerative changes of the spine is scoliotic curvature assessment spinal canal donahue ited due to artifact and resolution. Uncovertebral joint hypertrophy at multiple levels. Right-sided pleural effusion suspected left perihilar consolidation or nodule noted. IMPRESSION: 1. There is no acute fracture or dislocation evident in the cervical spine. Scoliosis and multilevel hypertrophic changes. 2. No acute intracranial hemorrhage, mass effect, or midline shift is seen. Degenerative and nonspeci fic white matter changes. 3. Has a small right pleural effusion incidentally noted with left perihilar infiltrate
[2021-01-30] MEDS ORDERED: SODIUM CHLORIDE 0.9% 1,000 ML IV SCH (12:45)
[2021-01-30 13:20] LABS: Calcium 7.9 mg/dL (8.4-10.2); Phosphorus 3.3 mg/dL (2.5-4.5); Potassium 4.2 mmol/L (3.5-5.1); Uric Acid 5.7 mg/dL (3.5-8.5)
--- NOTE | 2021-01-30 13:52 | XR ---
EXAMINATION TYPE: XR chest 2V DATE OF EXAM: 01/30/2021 COMPARISON: NONE HISTORY: 01/03/2017 TECHNIQUE: Frontal and lateral views of the chest are obtained. FINDINGS: There is unchanged elevation of the left hemidiaphragm. There is new airspace disease of t he left midlung zone. The cardiac silhouette size is within normal limits. IMPRESSION: There is unchanged elevation of the left hemidiaphragm. There is new airspace disease of the left mid lung zone.
[2021-01-30] MEDS ORDERED: NALOXONE 0.4 MG/ML 1 ML VIAL IV PRN (14:16)
[2021-01-30] MEDS ORDERED: cefTRIAXone IN SWFI 1,000 MG/10 ML SYRINGE IVP STA (14:21)
[2021-01-30] MEDS ORDERED: AZITHROMYCIN 500 MG in SODIUM CHLORIDE 0.9% 250 ML IVPB STA (14:21)
[2021-01-30 14:40] LABS: Appearance,Urine Clear (Clear); Bilirubin,Urine Negative (Negative); Blood,Urine Negative (Negative); Color,Urine Yellow; Glucose,Urine (UA) Negative (Negative); Ketones,Urine 1+ (Negative); Leukocyte Esterase,Urine Negative (Negative); Nitrite,Urine Negative (Negative); PH, Urine 5.5 (5.0-8.0); Protein,Urine Negative (Negative); Specific Gravity,Urine 1.009 (1.001-1.035); Urobilinogen,Urine <2.0 mg/dL (<2.0)
[2021-01-30 14:58] LABS: Creatinine,Urine Random 107.4 mg/dL
--- NOTE | 2021-01-30 16:25 | P.CNPUL ---
History of Present Illness Consult date: 01/30/21 Requesting physician: Latosha Ndiaye Reason for consult: abnormal CXR/CT Chief complaint: Generalized weakness, fall History of present illness: This is a 55-year-old gentleman who follows with [facility]. He has a history of schizophrenia and is maintained on Invega, hypertension, type 2 diabetes mellitus, chronic kidney disease, chronic tobacco dependence. He was also diagnosed with small cell lung cancer back in 2017 and is status post radiation and chemotherapy. His last CAT scan of the chest here was in June 2019 that revealed a left perihilar infiltrate extending towards the left peripheral lung infiltrate which was stable compared to January 2019. No suspicious changes to suggest metastatic or recurrent neoplasm. No other scans available in the system. The patient came to the emergency room today after sustaining a fall while walking across the street to catch a bus. Legs got quite weak, unable to hold him. He does have a abrasion over his left eye. Denies any other injuries at this point. He is somewhat slow to respond. He is oriented to person place and time. He was found to have significant hyponatremia with a sodium of 107. Serum osmolality 231. Urine osmolality 255. Urine random creatinine 107. Creatinine 1.34. Chloride 75. Bicarb 20. White count 7.2. Hemoglobin 11.6. TSH 1.38. Cortisol 26. Chest x-ray reveals unchanged elevation of the left hemidiaphragm as compared to 2017. There is new airspace disease of the left midlung zone. He is maintaining good O2 saturations up to 100% on room air. Denies any worsening shortness of breath, cough or congestion. He states he has been having weakness and occasional vomiting. Denies diarrhea. He states he lives alone in an apartment. He has a legal guardian. He states he has not seen an oncologist several years. Computed tomography scan of the brain and C-spine without contrast revealed no acute fracture or dislocation of the C-spine. No acute intracranial hemorrhage, mass effect or midline shift seen. Review of Systems REVIEW OF SYSTEMS: CONSTITUTIONAL: Positive for generalized weakness. Denies any recent significant weight loss or weight gain. EYES: Denies change in vision. EARS, NOSE, MOUTH, THROAT: Denies headaches, denies sore throat. CARDIOVASCULAR: Denies chest pain, palpitations or syncopal episodes. RESPIRATORY: Denies shortness of breath, cough, congestion or hemoptysis. GASTROINTESTINAL: States has had some vomiting but denies diarrhea GENITOURINARY: Denies hematuria, denies infections. MUSKULOSKELETAL: Denies pain, denies swelling. INTEGUMENTARY: Denies rash, denies eczema. NEUROLOGICAL: Denies recent memory loss, no recent seizure activity. PSYCHIATRIC: Denies anxiety, denies depression. HEMATOLOGIC/LYMPHATIC: Denies anemia, denies enlarged lymph nodes. Past Medical History Past Medical History: Diabetes Mellitus, Hyperlipidemia, Hypertension History of Any Multi-Drug Resistant Organisms: None Reported Past Surgical History: No Surgical Hx Reported Past Anesthesia/Blood Transfusion Reactions: No Reported Reaction Past Psychological History: Schizoaffective Disorder Smoking Status: Current every day smoker Past Alcohol Use History: None Reported Past Drug Use History: None Reported - Past Family History Father Family Medical History: CVA/TIA Medications and Allergies Home Medications Medication Instructions Recorded Confirmed Type Paliperidone IM [Invega Sustenna] 156 mg IM Q28D 01/30/21 01/30/21 History Allergies Allergy/AdvReac Type Severity Reaction Status Date / Time No Known Allergies Allergy Verified 01/30/21 13:17 Physical Exam Vitals: Vital Signs Temp Pulse Resp BP Pulse Ox 01/30/21 15:00 105 H 18 100/51 98 01/30/21 13:09 100 18 95/60 100 01/30/21 11:33 104 H 18 103/55 100 01/30/21 11:04 98 F 110 H 18 113/60 100 Intake and Output 01/30/21 01/30/21 01/30/21 06:59 14:59 22:59 Output Total 200 Balance -200 Output: Urine 200 Uretheral (Fishman) 200 Other: Weight 68.039 kg GENERAL EXAM: Alert, 55-year-old gentleman, cough, cooperative,a bit slow to respond, on room air, comfortable in no apparent distress. HEAD: Normocephalic. EYES: Abrasion over left eye. Normal reaction of pupils, equal size. NOSE: Clear with pink turbinates. THROAT: No erythema or exudates. NECK: No masses, no JVD. CHEST: No chest wall deformity. LUNGS: Equal air entry with no crackles, wheeze, rhonchi or dullness. CVS: S1 and S2 normal with no audible murmur, regular rhythm. ABDOMEN: No hepatosplenomegaly, normal bowel sounds, no guarding or rigidity. SPINE: No scoliosis or deformity SKIN: No rashes CENTRAL NERVOUS SYSTEM: No focal deficits, tone is normal in all 4 extremities. EXTREMITIES: There is no peripheral edema. No clubbing, no cyanosis. Peripheral pulses are intact. Results - Laboratory Findings CBC and BMP: 01/30/21 11:21 01/30/21 12:51 PT/INR, D-dimer PT 11.3 sec (9.0-12.0) 01/30/21 11:21 INR 1.1 (<1.2) 01/30/21 11:21 Abnormal lab findings: Abnormal Labs 01/30/21 01/30/21 01/30/21 11:21 11:21 11:21 RBC 3.49 L Hgb 11.6 L Hct 30.8 L MCHC 37.8 H RDW 16.0 H Lymphocytes # 0.4 L Sodium 107 L* Chloride 75 L Carbon Dioxide 20 L BUN 21 H Creatinine 1.34 H Osmolality Calcium AST 65 H Total Protein 4.9 L Albumin 3.0 L Urine Ketones 1+ H 01/30/21 12:51 RBC Hgb Hct MCHC RDW Lymphocytes # Sodium 109 L* Chloride 79 L Carbon Dioxide 21 L BUN 21 H Creatinine 1.30 H Osmolality 231 L* Calcium 7.9 L AST Total Protein Albumin Urine Ketones - Diagnostic Findings Chest x-ray: image reviewed Assessment and Plan Assessment: 1 Generalized weakness and fall suspect secondary to severe hyponatremia 2 Hyponatremia with presenting sodium of 107 3 Acute on chronic renal failure 4 History of small cell lung cancer diagnosed in 2017, status post chemoradiation 5 Elevation left hemidiaphragm, chronic 6 New airspace disease of the left midlung zone 7 Schizoaffective disorder, has legal guardian 8 History of diabetes mellitus 9 History of hypertension 10 Chronic kidney disease 11 History of chronic tobacco dependence Lang: The patient was seen and evaluated by Dr. Everett Chest x-ray, computed tomography scan of the brain and labs reviewed We will initiate 3% hypertonic saline at 20 ML's per hour per protocol He is to be admitted to the intensive care unit Plan to perform computed tomography scan of the chest once kidney function improves We will continue to monitor his electrolytes closely We will continue to follow and make further recommendations based on his clinical status I, the cosigning physician, performed a history & physical examination of the p atient. Lungs sounds are clear. Maintaining good O2 saturations in the 90s on room air. I discussed the assessment and plan of care with my nurse practitioner, Shira Mcdaniel. I attest to the above consultation as dictated by her. Time with Patient: Greater than 30
[2021-01-30 16:50] LABS: Glucose,Whole Blood 71 mg/dL (75-99)
[2021-01-30] MEDS: SODIUM CHLORIDE 3%(HYPERTONIC) 500 ML IV SCH (16:50)
[2021-01-30] MEDS ORDERED: HYDROcodone/APAP 5-325MG 1 EACH TAB PO PRN (19:44)
[2021-01-30] MEDS ORDERED: IOPAMIDOL CONTRAST (ORAL USE) VIAL PO PRN (19:44)
[2021-01-30] MEDS: PANTOPRAZOLE 40 MG/10 ML VIAL IVP SCH (21:33)
[2021-01-30] MEDS: HEPARIN SODIUM,PORCINE/PF 5,000 UNIT/0.5 ML SYRINGE SQ SCH (21:34)
[2021-01-31 04:16] LABS: Anisocytosis Slight; Basophils % (A) 0 %; Eosinophils % (A) 0 %; HCT 27.6 % (39.0-53.0); HGB 10.2 gm/dL (13.0-17.5); Lymphocytes # (A) 0.4 k/uL (1.0-4.8); Lymphocytes % (A) 7 %; MCH 33.1 pg (25.0-35.0); MCHC 36.8 g/dL (31.0-37.0); Mean Platelet Volume 6.8; Monocytes # (A) 0.5 k/uL (0-1.0); Monocytes % (A) 7 %; Neutrophils # (A) 5.4 k/uL (1.3-7.7); Neutrophils % (A) 83 %; Platelet Count 165 k/uL (150-450); RBC 3.06 m/uL (4.30-5.90); RDW 16.2 % (11.5-15.5); WBC 6.5 k/uL (3.8-10.6)
[2021-01-31 04:29] LABS: Calcium 7.9 mg/dL (8.4-10.2); Potassium 4.3 mmol/L (3.5-5.1)
[2021-01-31 05:02] LABS: Glucose,Whole Blood 82 mg/dL (75-99)
[2021-01-31] MEDS: PANTOPRAZOLE 40 MG/10 ML VIAL IVP SCH (07:51)
[2021-01-31] MEDS: HEPARIN SODIUM,PORCINE/PF 5,000 UNIT/0.5 ML SYRINGE SQ SCH ×2 (07:52→21:10)
--- NOTE | 2021-01-31 09:04 | CONS ---
CONSULTATION REASON FOR CONSULT: Hyponatremia. HISTORY OF PRESENT ILLNESS: The patient is a 55-year-old male with history of schizoaffective disorder, type 2 diabetes, hypertension. The patient also has a previous diagnosis of small-cell lung cancer in 2017 status post radiation therapy and chemotherapy. He has had a left perihilar infiltrate which has been stable. Patient was admitted to the hospital with history of fall. He stated that his legs were quite weak, he was unable to hold himself. He has been slow to respond which is not new. Patient was noted to have a serum sodium of 107 at the time of admission. There is no history of diarrhea, nausea or vomiting noted. The patient does not take any thiazide diuretics at home. Blood pressure has been on the lower side with systolic in the 90s. Serum creatinine was 1.3- 1.4 mg/dL. The patient was initially given a fluid bolus and had normal saline running at 75 mL an hour. Serum sodium had improved to about 109. However, his sodium did not improve further and he was subsequently switched to 3% saline. Currently 3% saline is running at 20 cc an hour and serum sodium is up to 112. Urine output has been borderline. Urine osmolality 255. The patient does have lower extremity edema. PAST MEDICAL HISTORY: Bipolar disorder, type 2 diabetes, hypertension, history of CKD, history of small-cell lung cancer. SOCIAL HISTORY: Positive for smoking. No history of drug abuse or alcohol abuse. MEDICATIONS AT HOME: Included Invega Sustenna for schizophrenia. ALLERGIES: None. REVIEW OF SYSTEMS: As per HPI. Other systems negative. PHYSICAL EXAMINATION: Patient is comfortable, awake, he is not in any acute distress. He is slow to respond but follows commands appropriately. Blood pressure 94/47, heart rate 112 per minute, he is afebrile. Examination of the heart S1, S2. Examination of the lungs, bilateral breath sounds are heard. Abdomen is soft, nontender. Examination of lower extremities shows edema 2+ bilaterally. PROOF SORTER exam grossly intact. LAB: Show sodium 112, potassium 4.3, chloride 82, CO2 is 20, BUN 21, creatinine 1.4, hemoglobin 10.2 g/dL. Urine osmolality at 255. Chest x-ray shows new airspace disease of the left lung. ASSESSMENT: 1. Hyponatremia, initially hypovolemic and improved with saline. However, subsequently serum sodium did not improve further and he was switched over to 3% saline. Consideration for SIADH given the underlying lung cancer and new infiltrate on the chest x-ray. Blood pressure remains on the borderline. Patient will continue with 3% saline for now. He is encouraged to increase his oral protein intake. Maintain some degree of free water restriction. Continue every 4 hour monitoring of serum sodium levels. 2. History of small-cell lung cancer with chest x-ray findings of left lung infiltrate, being followed by Pulmonology. 3. History of bipolar disorder. 4. History of chronic kidney disease stage 3. Baseline creatinine about 1.1-1.3 mg/dL. Etiology is likely nephrosclerosis. No evidence of proteinuria. 5. Possible pneumonia. PLAN: Continue empiric antibiotics. Continue with 3% saline for now. Continue to monitor sodium every 4 hours. Consider tolvaptan once off the 3% saline. MMODL / IJN: [id number] /
[2021-01-31 11:26] LABS: Urine Alcohol Negative (Negative); Urine Barbiturate Negative (Negative); Urine Cocaine Negative (Negative); Urine Methadone Negative (Negative); Urine Opiates Negative (Negative); Urine Phencyclidine Negative (Negative)
--- NOTE | 2021-01-31 11:26 | HP ---
HISTORY AND PHYSICAL DATE OF SERVICE: 01/30/2021 CHIEF COMPLAINTS: Weakness and fall. HISTORY OF PRESENT ILLNESS: This 55-year-old gentleman with a past medical history of multiple medical problems, hypertension, hyperlipidemia, diabetes, was noncompliant with medications and treatment. The patient has not seen a primary physician long-term, according to him. The patient apparently was admitted in Psychiatry previously last year for schizoaffective disorder and multiple other medical problems. The patient is started on medications. Also had cancer workup in 2017 for pulmonary nodule with left upper lobe mass was suspected. Patient had a chest, abdomen, pelvis CAT scan in 2019. Showed some left perihilar shadows. Currently, the patient complains of falls and patient was feeling dizzy. Patient came to [facility] and the patient had a sodium of 107. The patient started on 3% saline at this time. Nephrology and pulmonary evaluation in progress at this time. There is no history of fever, rigors, chills, headache, loss of consciousness, seizures. Chest x-ray reviewed. PAST MEDICAL HISTORY: History of diabetes, hypertension, hyperlipidemia, schizoaffective disorder. MEDICATIONS: Invega. ALLERGIES: None. FAMILY HISTORY: CVA, TIA in the family. SOCIAL HISTORY: History of smoking. No alcohol or drug abuse. REVIEW OF SYSTEMS: ENT: No diminished vision. CARDIOVASCULAR SYSTEM: No angina ( ) palpitations. RESPIRATION: As mentioned earlier. GI: As mentioned. : No dysuria. NERVOUS SYSTEM: No numbness, no weakness. ALLERGY/IMMUNOLOGY: No asthma, hay fever. MUSCULOSKELETAL: As mentioned earlier. HEMATOLOGY/ONCOLOGY: No history of anemia. ENDOCRINE: As mentioned earlier. CONSTITUTIONAL: As mentioned earlier. DERMATOLOGY: Negative. PSYCH: As mentioned earlier. PHYSICAL EXAMINATION: Alert oriented x3. Pulse 98, blood pressure 90/77, respiration 16, temperature 96.5, pulse ox 99% on room air. HEENT: Conjunctivae normal. Oral mucosa moist. NECK: No jugular venous distention. No lymph node enlargement. CARDIOVASCULAR SYSTEM: S1, S2 muffled. RESPIRATION: Diminished breath sounds at the bases. No rhonchi. No crackles. ABDOMEN: Soft, nontender. No mass palpable. LEGS: No edema, no swelling. NERVOUS SYSTEM: Higher functions as mentioned. Moves all four limbs. Nonfocal. LYMPHATICS: No lymph nodes. SKIN: No rash. JOINTS: No active deforming arthropathy. LAB STUDIES: WBC 7.3, hemoglobin 7.6, sodium noted. Creatinine noted. ASSESSMENT: 1. Acute severe hyponatremia possibly secondary SIADH. 2. Possible possibly left lower lobe pneumonia versus malignancy. 3. Previous workup including PET scan on the left lung nodule. 4. Anemia, normocytic anemia of chronic disease, nutritional. 5. Increased creatinine with acute renal failure with acute tubular necrosis. 6. History of diabetes type 2. 7. Hypertension. 8. Hyperlipidemia. 9. History of noncompliance. 10.History of small-cell lung cancer in 2017 status post chemo and radiation. 11.Schizoaffective disorder. 12.History of nicotine dependence. 13.FULL CODE. RECOMMENDATIONS AND DISCUSSION: In this 55-year-old gentleman who presented with multiple complex medical issues, we will monitor the patient closely, continue the current management and treatment. Patient monitored in ICU, 3% saline. Monitor the urine sodium and serum sodium closely. I would also recommend a CT scan of the chest, abdomen and pelvis also to complete the workup. Otherwise, prognosis guarded because of multiple complex medical conditions. See orders for details. Closely follow with Dr. Everett for ICU management as well. MMODL / IJN: [id number] /
--- NOTE | 2021-01-31 11:37 | P.PN ---
Subjective Progress Note Date: 01/31/21 Principal diagnosis: Severe hyponatremia most likely secondary to SIADH This is a 55-year-old gentleman who follows with [facility]. He has a history of schizophrenia and is maintained on Invega, hypertension, type 2 diabetes mellitus, chronic kidney disease, chronic tobacco dependence. He was also diagnosed with small cell lung cancer back in 2016 and is status post radiation and chemotherapy. His last CAT scan of the chest here was in June 2019 that revealed a left perihilar infiltrate extending towards the left peripheral lung infiltrate which was stable compared to January 2019. No suspicious changes to suggest metastatic or recurrent neoplasm. No other scans available in the system. The patient came to the emergency room today after sustaining a fall while walking across the street to catch a bus. Legs got quite weak, unable to hold him. He does have a abrasion over his left eye. Denies any other injuries at this point. He is somewhat slow to respond. He is oriented to person place and time. He was found to have significant hyponatr emia with a sodium of 107. Serum osmolality 231. Urine osmolality 255. Urine random creatinine 107. Creatinine 1.34. Chloride 75. Bicarb 20. White count 7.2. Hemoglobin 11.6. TSH 1.38. Cortisol 26. Chest x-ray reveals unchanged elevation of the left hemidiaphragm as compared to 2017. There is new airspace disease of the left midlung zone. He is maintaining good O2 saturations up to 100% on room air. Denies any worsening shortness of breath, cough or congestion. He states he has been having weakness and occasional vomiting. Denies diarrhea. He states he lives alone in an apartment. He has a legal guardian. He states he has not seen an oncologist several years. Computed kana ography scan of the brain and C-spine without contrast revealed no acute fracture or dislocation of the C-spine. No acute intracranial hemorrhage, mass effect or midline shift seen. Reevaluated today on 01/31/2021, patient remains in the ICU, remains on 3% saline, sodium improved from 110 initially on admission up to 113 today. Patient remains on the protocol for hypertonic saline. He is also on fluid restrictions. And I plan to continue monitoring the patient in the ICU for the next [address] of the head showed no evidence of acute findings, patient will eventually require more scanning of the lungs and of the abdomen and pelvis, however with his renal status I would rather wait for now. Patient does have history of small cell lung cancer diagnosed and treated in 2019, however he had no further follow-up since then. Thyroid profile is normal and serum cortisol is normal. Considering the patient had history of small cell lung cancer, this is SIADH related unless for otherwise. Objective - Vital Signs Vital signs: Vital Signs Temp 97.9 F 01/31/21 08:00 Pulse 106 H 01/31/21 11:00 Resp 28 H 01/31/21 11:00 BP 98/53 01/31/21 11:00 Pulse Ox 99 01/31/21 11:00 Intake & Output 01/30/21 01/31/21 01/31/21 18:59 06:59 18:59 Intake Total 80 220 218 Output Total 448 277 95 Balance -368 -57 123 Weight 68.039 kg 79.3 kg Intake: IV 220 100 Sodium Chloride 3%( 220 100 Hypertonic) 500 ml @ 20 mls/hr IV .Q24H MOUSTAPHA Rx#: [id number] Intake, IV Titration 80 Amount Sodium Chloride 3%( 80 Hypertonic) 500 ml @ 20 mls/hr IV .Q24H MOUSTAPHA Rx#: [id number] Oral 118 Output: Urine 448 277 95 Uretheral ([place]) 200 Other: Voiding Method Indwelling Catheter Indwelling Catheter Indwelling Catheter - Exam Physical Exam: Revealed a 55-year-old white male in no distress. On room air. Head: Atraumatic, normocephalic. HEENT:[Neck is supple.] [No neck masses.] [No thyromegaly.] [No JVD.] Abrasion over left eye noted. Mucous membranes are. Chest: [Clear throughout, no crackles, no rhonchi, no wheezes.] Symmetrical chest expansion. Cardiac Exam: [Normal S1 and S2, no S3 gallop, no murmur.] Abdomen: [Soft, nontender, no megaly, no rebound, no guarding, normal bowel sounds.] Extremities: [No clubbing, no edema, no cyanosis.] Good pulses bilaterally. Neurological Exam: [No focal neurologic deficit.] Alert oriented 3. Psychiatric: Normal mood, flat affect and normal mental status examination. Skin: No rashes. Musculoskeletal: No deformities and no limitation in range of motion. - Labs CBC & Chem 7: 01/31/21 03:57 01/31/21 08:13 Labs: Abnormal Lab Results - Last 24 Hours (Table) 01/30/21 01/30/21 01/30/21 Range/Units 11:21 11:21 11:21 RBC 3.49 L (4.30-5.90) m/uL Hgb 11.6 L (13.0-17.5) gm/dL Hct 30.8 L (39.0-53.0) % MCHC 37.8 H (31.0-37.0) g/dL RDW 16.0 H (11.5-15.5) % Lymphocytes # 0.4 L (1.0-4.8) k/uL Sodium 107 L* (137-145) mmol/L Chloride 75 L (98-107) mmol/L Carbon Dioxide 20 L (22-30) mmol/L BUN 21 H (9-20) mg/dL Creatinine 1.34 H (0.66-1.25) mg/dL Glucose (74-99) mg/dL POC Glucose (mg/dL) (75-99) mg/dL Osmolality (280-301) mosm/kg Calcium (8.4-10.2) mg/dL AST 65 H (17-59) U/L Total Protein 4.9 L (6.3-8.2) g/dL Albumin 3.0 L (3.5-5.0) g/dL Urine Ketones 1+ H (Negative) 01/30/21 01/30/21 01/30/21 Range/Units 12:51 15:59 16:48 RBC (4.30-5.90) m/uL Hgb (13.0-17.5) gm/dL Hct (39.0-53.0) % MCHC (31.0-37.0) g/dL RDW (11.5-15.5) % Lymphocytes # (1.0-4.8) k/uL Sodium 109 L* 109 L* (137-145) mmol/L Chloride 79 L (98-107) mmol/L Carbon Dioxide 21 L (22-30) mmol/L BUN 21 H (9-20) mg/dL Creatinine 1.30 H (0.66-1.25) mg/dL Glucose (74-99) mg/dL POC Glucose (mg/dL) 71 L (75-99) mg/dL Osmolality 231 L* (280-301) mosm/kg Calcium 7.9 L (8.4-10.2) mg/dL AST (17-59) U/L Total Protein (6.3-8.2) g/dL Albumin (3.5-5.0) g/dL Urine Ketones (Negative) 01/30/21 01/31/21 01/31/21 Range/Units 19:50 00:00 03:57 RBC 3.06 L (4.30-5.90) m/uL Hgb 10.2 L (13.0-17.5) gm/dL Hct 27.6 L (39.0-53.0) % MCHC (31.0-37.0) g/dL RDW 16.2 H (11.5-15.5) % Lymphocytes # 0.4 L (1.0-4.8) k/uL Sodium 110 L* 111 L* (137-145) mmol/L Chloride (98-107) mmol/L Carbon Dioxide (22-30) mmol/L BUN (9-20) mg/dL Creatinine (0.66-1.25) mg/dL Glucose (74-99) mg/dL POC Glucose (mg/dL) (75-99) mg/dL Osmolality (280-301) mosm/kg Calcium (8.4-10.2) mg/dL AST (17-59) U/L Total Protein (6.3-8.2) g/dL Albumin (3.5-5.0) g/dL Urine Ketones (Negative) 01/31/21 01/31/21 Range/Units 03:57 08:13 RBC (4.30-5.90) m/uL Hgb (13.0-17.5) gm/dL Hct (39.0-53.0) % MCHC (31.0-37.0) g/dL RDW (11.5-15.5) % Lymphocytes # (1.0-4.8) k/uL Sodium 112 L* 113 L* (137-145) mmol/L Chloride 82 L (98-107) mmol/L Carbon Dioxide 20 L (22-30) mmol/L BUN 21 H (9-20) mg/dL Creatinine 1.40 H (0.66-1.25) mg/dL Glucose 64 L (74-99) mg/dL POC Glucose (mg/dL) (75-99) mg/dL Osmolality (280-301) mosm/kg Calcium 7.9 L (8.4-10.2) mg/dL AST (17-59) U/L Total Protein (6.3-8.2) g/dL Albumin (3.5-5.0) g/dL Urine Ketones (Negative) Assessment and Plan Assessment: Impression: Severe hyponatremia, most likely secondary to SIADH secondary to underlying small cell lung cancer. Acute on chronic renal failure. History of small cell lung cancer. Patient received chemo and radiation, but has not had any follow-up since 2019. Nonspecific left upper lobe and left mid lung disease most likely related to his previous small cell lung cancer with residual scarring or could be active disease. Clinically doubt pneumonia. History of type 2 diabetes. Benign essential hypertension. Tobacco dependence syndrome. Recommendation: Continue 3% saline as per protocol. Continue fluid restrictions for his SIADH. Consider demeclocycline. Continue to monitor in the ICU. Close monitoring of sodium making sure that the patient does not correct rapidly and no more than 10-12 mEq in 24 hours. Will continue to follow. Time with Patient: Less than 30
[2021-01-31] MEDS: SODIUM CHLORIDE 3%(HYPERTONIC) 500 ML IV SCH (13:39)
--- NOTE | 2021-01-31 16:39 | PN ---
PROGRESS NOTE DATE OF SERVICE: 01/31/2021 This 55-year-old gentleman admitted with weakness and fall and severe hyponatremia which is thought to be possibly multifactorial. The patient also had possible left lower pneumonia versus malignancy. The patient also had previous workup including PET scan for left lung nodule. The patient is closely monitored. Patient is on 3% saline, about almost 360 mL has been given at this time. Nephrology, and Dr. Everett are following the patient closely. PAST MEDICAL HISTORY: Reviewed. REVIEW OF SYSTEMS: CARDIOVASCULAR SYSTEM: No angina or palpitations. As mentioned earlier. GI: As mentioned earlier. : No dysuria. CURRENT MEDICATIONS: Reviewed include 3% saline, [place], Zithromax, ceftriaxone, naloxone, Protonix, off psych medications. PHYSICAL EXAMINATION: Patient is alert, oriented x2. Pulse is 96, blood pressure 93/48, respiration 30, temperature 98 degrees, pulse ox 98% on room. HEENT: Conjunctivae normal. NECK: No JVD. CARDIOVASCULAR: S1, S2. RESPIRATIONS: Breath sounds diminished in the bases. A few scattered rhonchi, no crackles. ABDOMEN: Soft, nontender. LEGS: No edema, no swelling. NERVOUS SYSTEM: No focal deficits. LABORATORY DATA: WBC 6.2, hemoglobin 10.2, sodium is 114, creatinine is 1.40. ASSESSMENT: 1. Acute severe hyponatremia, possibly SIADH. 2. History of small-cell lung cancer in 2017 status post chemo radiation. 3. Possible left lower lobe pneumonia versus malignancy. 4. Previous workup including PET scan on the left lung nodule. 5. Anemia, normocytic anemia of chronic disease and possibly nutritional. 6. Increased creatinine with acute renal failure, acute tubular necrosis. 7. Diabetes, type 2. 8. Hypertension. 9. Hyperlipidemia. 10.History of noncompliance. 11.Schizoaffective disorder. 12.History of nicotine dependence. 13.FULL CODE. RECOMMENDATIONS AND DISCUSSION: Continue current management and monitor sodium closely. Monitor 3% saline. Repeat labs in the morning. Closely follow with Dr. Everett and Dr. Garrett. Prognosis guarded. Further recommendations to follow. CT scans once the patient is more stabilized. MMODL / IJN: [id number] / MTDD
[2021-01-31] MEDS: AZITHROMYCIN 500 MG in SODIUM CHLORIDE 0.9% 250 ML IVPB SCH (16:40)
[2021-01-31] MEDS: SODIUM CHLORIDE 0.9% 1,000 ML IV SCH (18:14)
[2021-02-01 04:25] LABS: Anisocytosis Slight; Basophils % (A) 0 %; Eosinophils % (A) 1 %; HCT 26.7 % (39.0-53.0); HGB 9.7 gm/dL (13.0-17.5); Lymphocytes # (A) 0.5 k/uL (1.0-4.8); Lymphocytes % (A) 10 %; MCH 32.9 pg (25.0-35.0); MCHC 36.2 g/dL (31.0-37.0); MCV 90.9 fL (80.0-100.0); Mean Platelet Volume 7.7; Monocytes # (A) 0.3 k/uL (0-1.0); Monocytes % (A) 6 %; Neutrophils % (A) 81 %; Platelet Count 137 k/uL (150-450); RBC 2.93 m/uL (4.30-5.90); RDW 16.6 % (11.5-15.5)
[2021-02-01 04:47] LABS: Albumin 2.4 g/dL (3.5-5.0); Potassium 3.7 mmol/L (3.5-5.1); Total Bilirubin 0.3 mg/dL (0.2-1.3); Total Protein 4.2 g/dL (6.3-8.2)
[2021-02-01] MEDS ORDERED: POTASSIUM CHLORIDE ER 20 MEQ TAB.ER PO STA (05:40)
[2021-02-01] MEDS: SODIUM CHLORIDE 0.9% 1,000 ML IV SCH (05:58)
[2021-02-01] MEDS ORDERED: DEMECLOCYCLINE 150 MG TAB PO SCH (09:00)
[2021-02-01] MEDS: PANTOPRAZOLE 40 MG/10 ML VIAL IVP SCH (09:55)
[2021-02-01] MEDS: HEPARIN SODIUM,PORCINE/PF 5,000 UNIT/0.5 ML SYRINGE SQ SCH ×2 (09:55→20:26)
--- NOTE | 2021-02-01 10:33 | P.PN ---
Subjective Progress Note Date: 02/01/21 Principal diagnosis: Severe hyponatremia most likely secondary to SIADH This is a 55-year-old gentleman who follows with [facility]. He has a history of schizophrenia and is maintained on Invega, hypertension, type 2 diabetes mellitus, chronic kidney disease, chronic tobacco dependence. He was also diagnosed with small cell lung cancer back in 2016 and is status post radiation and chemotherapy. His last CAT scan of the chest here was in June 2019 that revealed a left perihilar infiltrate extending towards the left peripheral lung infiltrate which was stable compared to January 2019. No suspicious changes to suggest metastatic or recurrent neoplasm. No other scans available in the system. The patient came to the emergency room today after sustaining a fall while walking across the street to catch a bus. Legs got quite weak, unable to hold him. He does have a abrasion over his left eye. Denies any other injuries at this point. He is somewhat slow to respond. He is oriented to person place and time. He was found to have significant hyponatr emia with a sodium of 107. Serum osmolality 231. Urine osmolality 255. Urine random creatinine 107. Creatinine 1.34. Chloride 75. Bicarb 20. White count 7.2. Hemoglobin 11.6. TSH 1.38. Cortisol 26. Chest x-ray reveals unchanged elevation of the left hemidiaphragm as compared to 2017. There is new airspace disease of the left midlung zone. He is maintaining good O2 saturations up to 100% on room air. Denies any worsening shortness of breath, cough or congestion. He states he has been having weakness and occasional vomiting. Denies diarrhea. He states he lives alone in an apartment. He has a legal guardian. He states he has not seen an oncologist several years. Computed kana ography scan of the brain and C-spine without contrast revealed no acute fracture or dislocation of the C-spine. No acute intracranial hemorrhage, mass effect or midline shift seen. Reevaluated today on 01/31/2021, patient remains in the ICU, remains on 3% saline, sodium improved from 110 initially on admission up to 113 today. Patient remains on the protocol for hypertonic saline. He is also on fluid restrictions. And I plan to continue monitoring the patient in the ICU for the next [address] of the head showed no evidence of acute findings, patient will eventually require more scanning of the lungs and of the abdomen and pelvis, however with his renal status I would rather wait for now. Patient does have history of small cell lung cancer diagnosed and treated in 2019, however he had no further follow-up since then. Thyroid profile is normal and serum cortisol is normal. Considering the patient had history of small cell lung cancer, this is SIADH related unless for otherwise. Reevaluated today on 02/01/2021, patient remains in the ICU, doing well, his sodium is up to 117, remains on IV fluid in the form of 0.9 normal saline at 75 mL/h, remains on fluid restrictions, and today I cut down his IV fluid to 25 mL per hour. I added demeclocycline. 150 twice a day, his renal functioning is improving but not back to normal. Patient may need CT of the chest abdomen and pelvis, and this could be done probably in the next 24 hours assuming conceal function continues to improve. In the meantime we plan to continue correcting his sodium, and I plan to continue monitoring the patient in the ICU until his sodium is above 121. Will wait on scanning the patient but eventually the patient needs to be scanned from head to bottom. The presentation is most likely a presentation of SIADH secondary to recurrent small cell lung cancer. Objective - Vital Signs Vital signs: Vital Signs Temp 97.5 F L 02/01/21 08:00 Pulse 88 02/01/21 09:00 Resp 18 02/01/21 09:00 BP 100/58 02/01/21 09:00 Pulse Ox 100 02/01/21 09:00 Intake & Output 01/31/21 02/01/21 02/01/21 18:59 06:59 18:59 Intake Total 846 900 700 Output Total 260 305 100 Balance 586 595 600 Weight 80.9 kg Intake: IV 240 825 300 Sodium Chloride 0.9% 1, 825 300 000 ml @ 75 mls/hr IV . [id number] MOUSTAPHA Rx#:[id number] Sodium Chloride 3%( 240 Hypertonic) 500 ml @ 20 mls/hr IV .Q24H MOUSTAPHA Rx#: [id number] Intake, IV Titration 50 75 Amount Sodium Chloride 0.9% 1, 75 000 ml @ 75 mls/hr IV . [id number] MOUSTAPHA Rx#:[id number] cefTRIAXone 1 gm In 50 Sodium Chloride 0.9% 50 ml @ 100 mls/hr IVPB Q24H MOUSTAPHA Rx#:[id number] Oral 556 400 Output: Urine 260 305 100 Other: Voiding Method Indwelling Catheter Indwelling Catheter - Exam Physical Exam: Revealed a 55-year-old white male in no distress. On room air. Asymptomatic. Head: Atraumatic, normocephalic. HEENT:[Neck is supple.] [No neck masses.] [No thyromegaly.] [No JVD.] Abrasion over left eye noted. Mucous membranes are. Chest: [Clear throughout, no crackles, no rhonchi, no wheezes.] Symmetrical chest expansion. Cardiac Exam: [Normal S1 and S2, no S3 gallop, no murmur.] Abdomen: [Soft, nontender, no megaly, no rebound, no guarding, normal bowel sounds.] Extremities: [No clubbing, no edema, no cyanosis.] Good pulses bilaterally. Neurological Exam: [No focal neurologic deficit.] Alert oriented 3. Psychiatric: Normal mood, flat affect and normal mental status examination. Skin: No rashes. Musculoskeletal: No deformities and no limitation in range of motion. - Labs CBC & Chem 7: 02/01/21 04:02 02/01/21 07:48 Labs: Abnormal Lab Results - Last 24 Hours (Table) 01/31/21 01/31/21 01/31/21 Range/Units 12:02 17:02 20:32 RBC (4.30-5.90) m/uL Hgb (13.0-17.5) gm/dL Hct (39.0-53.0) % RDW (11.5-15.5) % Plt Count (150-450) k/uL Lymphocytes # (1.0-4.8) k/uL Sodium 114 L* 115 L* 115 L* (137-145) mmol/L Chloride (98-107) mmol/L Calcium (8.4-10.2) mg/dL Total Protein (6.3-8.2) g/dL Albumin (3.5-5.0) g/dL 01/31/21 02/01/21 02/01/21 Range/Units 23:56 04:02 04:02 RBC 2.93 L (4.30-5.90) m/uL Hgb 9.7 L (13.0-17.5) gm/dL Hct 26.7 L (39.0-53.0) % RDW 16.6 H (11.5-15.5) % Plt Count 137 L (150-450) k/uL Lymphocytes # 0.5 L (1.0-4.8) k/uL Sodium 117 L* 117 L* (137-145) mmol/L Chloride 89 L (98-107) mmol/L Calcium 8.0 L (8.4-10.2) mg/dL Total Protein 4.2 L (6.3-8.2) g/dL Albumin 2.4 L (3.5-5.0) g/dL 02/01/21 Range/Units 07:48 RBC (4.30-5.90) m/uL Hgb (13.0-17.5) gm/dL Hct (39.0-53.0) % RDW (11.5-15.5) % Plt Count (150-450) k/uL Lymphocytes # (1.0-4.8) k/uL Sodium 116 L* (137-145) mmol/L Chloride (98-107) mmol/L Calcium (8.4-10.2) mg/dL Total Protein (6.3-8.2) g/dL Albumin (3.5-5.0) g/dL Assessment and Plan Assessment: Impression: Severe hyponatremia, most likely secondary to SIADH secondary to underlying small cell lung cancer. Acute on chronic renal failure. History of small cell lung cancer. Patient received chemo and radiation, but has not had any follow-up since 2019. Nonspecific left upper lobe and left mid lung disease most likely related to his previous small cell lung cancer with residual scarring or could be active disease. Recurrent small cell lung cancer is not entirely ruled out. History of type 2 diabetes. Benign essential hypertension. Tobacco dependence syndrome. Recommendation: Cut down her IV fluid to 25 mL per hour. And continue fluid restriction. Continue fluid restrictions for his SIADH. Start demeclocycline. Continue to monitor in the ICU. Until sodium is above 121, then transferred to regular medical floor. Will continue to follow. Time with Patient: Less than 30
[2021-02-01] MEDS ORDERED: TOLVAPTAN 15 MG 1/2 TABLET PO ONE (10:44)
[2021-02-01] MEDS: MIDODRINE 5 MG TAB PO SCH ×2 (11:35→16:53)
--- NOTE | 2021-02-01 12:44 | PN ---
PROGRESS NOTE Patient is seen for followup for hyponatremia. Initially, patient was maintained on 3% saline. His sodium level came up, but has been staying at 116 to 117 mEq/L. IV fluids were switched to normal saline. The patient has edema as well. He denies any chest pains or shortness of breath. EXAMINATION: Today, patient is comfortable, awake. He is not in any acute distress. Blood pressure 96/59, heart rate 86 per minute. He is afebrile. Examination of the heart S1, S2. Examination of the lungs, bilateral breath sounds are heard. Abdomen is soft, nontender. Examination of lower extremities, 2+ edema bilaterally. [place] [employer] exam grossly intact. LABS: Show sodium 117, potassium 3.7, chloride 89, BUN 17, creatinine 1.2, hemoglobin 9.7 g/dL. ASSESSMENT: 1. Hyponatremia currently hypervolemic with lower extremity edema. Serum sodium improved initially with 3% saline. However, it has not improved significantly with saline administration. Urine osmolality was not significantly elevated. I will discontinue the saline and we will give a dose of tolvaptan. By this evening or tomorrow, loop diuretics can be started as well. 2. History of small-cell lung cancer with chest x-ray findings of left lung infiltrate, being followed by Pulmonology. 3. History of CKD, baseline creatinine 1.1-1.3 with no evidence of proteinuria. Etiology is nephrosclerosis. 4. Pneumonia maintained on antibiotics. 5. Acute kidney injury. Serum creatinine currently improved, etiology most likely hypotension. PLAN: Discontinue IV fluids. Tolvaptan p.o. x1. Add midodrine for low blood pressure and repeat a sodium in about 4 hours. Continue empiric antibiotics. MMODL / IJN: [id number] /
[2021-02-01] MEDS: AZITHROMYCIN 500 MG in SODIUM CHLORIDE 0.9% 250 ML IVPB SCH (16:56)
--- NOTE | 2021-02-01 20:32 | PN ---
PROGRESS NOTE DATE OF SERVICE: 02/01/2021 This 55-year-old gentleman who was admitted with severe hyponatremia possibly secondary to psychiatric medication, being closely monitored at this time. The patient received 3% saline. Patient currently on normal saline. Sensorium is improved . Patient is still confused. PAST MEDICAL HISTORY: Reviewed. REVIEW OF SYSTEMS: CARDIOVASCULAR SYSTEM: No angina or palpitations. RESPIRATORY: As mentioned earlier. GI: As mentioned earlier. no dysuria. NERVOUS SYSTEM: No numbness, weakness. CURRENT MEDICATIONS: Reviewed and include: [place], Zithromax, ceftriaxone, midodrine, Protonix. PHYSICAL EXAMINATION: Alert and oriented times three. Pulse 95, blood pressure 104/64, respiration 17, temperature 97.9, pulse ox 98% on room air. HEENT: Conjunctivae normal. Neck: No JVD. Cardiovascular: S1, S2 muffled. Respiratory: Breath sounds diminished at the bases. Scattered rhonchi and crackles. Abdomen: Soft, nontender. Legs are no edema. No swelling. Nervous system: No focal deficits. LAB STUDIES: Hemoglobin 9.7. ASSESSMENT: 1. Acute severe hyponatremia, possibly SIADH. 2. History of small-cell lung cancer in 2006 status post chemo radiation. 3. Possible left lower lobe pneumonia versus malignancy. 4. Previous workup including PET scan of the left lung nodule. 5. Anemia, normocytic anemia of chronic disease and possibly nutritional. 6. Increased creatinine with acute renal failure with acute tubular necrosis. 7. Diabetes mellitus type 2. 8. Hypertension. 9. Hyperlipidemia. 10.History of noncompliance. 11.History of schizoaffective disorder. 12.History of nicotine dependence. 13.FULL CODE. RECOMMENDATIONS AND DISCUSSION: I recommend to continue current medications, management and symptomatic treatment. Otherwise, sodium is improving. The patient still continues to be confused and follow closely with multiple consultants. I would recommend psychiatric evaluation also. The patient had possibly SIADH. Once the patient is improved, I would also recommend a CT scan to evaluate the patient's malignancy status. Guarded prognosis. Further recommendations to follow. MMODL / IJN: [id number] / MTDD
[2021-02-02 00:24] LABS: Potassium 4.2 mmol/L (3.5-5.1)
[2021-02-02 04:02] LABS: Anisocytosis Slight; Basophils % (A) 0 %; Eosinophils # (A) 0.1 k/uL (0-0.7); Eosinophils % (A) 1 %; HCT 28.9 % (39.0-53.0); HGB 10.2 gm/dL (13.0-17.5); Lymphocytes # (A) 0.6 k/uL (1.0-4.8); Lymphocytes % (A) 11 %; MCH 33.2 pg (25.0-35.0); MCHC 35.3 g/dL (31.0-37.0); MCV 93.9 fL (80.0-100.0); Mean Platelet Volume 6.8; Monocytes # (A) 0.3 k/uL (0-1.0); Monocytes % (A) 5 %; Neutrophils # (A) 4.3 k/uL (1.3-7.7); Neutrophils % (A) 81 %; Platelet Count 141 k/uL (150-450); RBC 3.08 m/uL (4.30-5.90); RDW 16.9 % (11.5-15.5); WBC 5.3 k/uL (3.8-10.6)
[2021-02-02 04:20] LABS: Albumin 2.6 g/dL (3.5-5.0); Calcium 8.4 mg/dL (8.4-10.2); Potassium 4.1 mmol/L (3.5-5.1); Total Bilirubin 0.2 mg/dL (0.2-1.3); Total Protein 4.4 g/dL (6.3-8.2)
[2021-02-02] MEDS: MIDODRINE 5 MG TAB PO SCH ×3 (06:52→16:54)
[2021-02-02] MEDS ORDERED: FUROSEMIDE 10 MG/ML 4 ML VIAL IV STA (07:50)
[2021-02-02] MEDS ORDERED: ACETAMINOPHEN TAB 325 MG TAB PO PRN (07:51)
--- NOTE | 2021-02-02 08:38 | P.PN ---
Subjective Patient is seen in follow-up for hyponatremia. Sodium level improving. Oral intake here. No vomiting or diarrhea. Blood pressure stable. Vital signs are stable. General: The patient appeared well nourished and normally developed. HEENT: Head exam is unremarkable. LUNGS: Breath sounds decreased. HEART: Rate and Rhythm are regular. ABDOMEN: Soft, no distention. EXTREMITITES: 1+ edema. Objective - Vital Signs Vital signs: Vital Signs Temp 98.1 F 02/02/21 02:00 Pulse 86 02/02/21 02:00 Resp 15 02/02/21 02:00 BP 102/65 02/02/21 02:00 Pulse Ox 97 02/02/21 02:00 Intake & Output 02/01/21 02/02/21 02/02/21 18:59 06:59 18:59 Intake Total 1520 480 Output Total 1245 1900 Balance 275 -1420 Intake: IV 300 Sodium Chloride 0.9% 1, 300 000 ml @ 75 mls/hr IV . [id number] MOUSTAPHA Rx#:[id number] Intake, IV Titration 300 Amount Azithromycin 500 mg In 250 Sodium Chloride 0.9% 250 ml @ 250 mls/hr IVPB Q24H MOUSTAPHA Rx#:[id number] cefTRIAXone 1 gm In 50 Sodium Chloride 0.9% 50 ml @ 100 mls/hr IVPB Q24H MOUSTAPHA Rx#:[id number] Oral 920 480 Output: Urine 1245 1900 Other: Voiding Method Indwelling Catheter Indwelling Catheter - Labs CBC & Chem 7: 02/02/21 02:55 02/02/21 02:55 Labs: Abnormal Lab Results - Last 24 Hours (Table) 02/01/21 02/01/21 02/01/21 Range/Units 12:08 17:09 23:59 RBC (4.30-5.90) m/uL Hgb (13.0-17.5) gm/dL Hct (39.0-53.0) % RDW (11.5-15.5) % Plt Count (150-450) k/uL Lymphocytes # (1.0-4.8) k/uL Sodium 117 L* 120 L 121 L (137-145) mmol/L Chloride 92 L (98-107) mmol/L Total Protein (6.3-8.2) g/dL Albumin (3.5-5.0) g/dL 02/02/21 02/02/21 Range/Units 02:55 02:55 RBC 3.08 L (4.30-5.90) m/uL Hgb 10.2 L (13.0-17.5) gm/dL Hct 28.9 L (39.0-53.0) % RDW 16.9 H (11.5-15.5) % Plt Count 141 L (150-450) k/uL Lymphocytes # 0.6 L (1.0-4.8) k/uL Sodium 122 L (137-145) mmol/L Chloride 93 L (98-107) mmol/L Total Protein 4.4 L (6.3-8.2) g/dL Albumin 2.6 L (3.5-5.0) g/dL Assessment and Plan Plan: Assessment: 1. Hyponatremia, slightly hypervolemic. Sodium level CXXII this morning. Urine sodium less than 10 and urine osmolality 255. Status post 3% and Samsca this admission. 2. Chronic kidney disease stage III Baseline creatinine 1.1-1.3 secondary to nephrosclerosis. 3. History of small cell lung cancer. 4. Pneumonia maintain on antibiotics. 5. Mild acute kidney injury mostly prerenal secondary to hypotension. Resolved. Plan: Maintain fluid restriction. Status post IV Lasix this morning. Repeat sodium level this afternoon. If no improvement, will repeat Samsca. Encourage oral intake, particularly protein.
[2021-02-02] MEDS: PANTOPRAZOLE 40 MG/10 ML VIAL IVP SCH (08:40)
[2021-02-02] MEDS: HEPARIN SODIUM,PORCINE/PF 5,000 UNIT/0.5 ML SYRINGE SQ SCH ×2 (08:40→20:28)
[2021-02-02] MEDS ORDERED: IOPAMIDOL CONTRAST (ORAL USE) VIAL PO PRN (10:21)
--- NOTE | 2021-02-02 10:21 | P.PN ---
Subjective Progress Note Date: 02/02/21 Principal diagnosis: Severe hyponatremia, most likely secondary to SIADH This is a 55-year-old gentleman who follows with [facility]. He has a history of schizophrenia and is maintained on Invega, hypertension, type 2 diabetes mellitus, chronic kidney disease, chronic tobacco dependence. He was also diagnosed with small cell lung cancer back in 2016 and is status post radiation and chemotherapy. His last CAT scan of the chest here was in June 2019 that revealed a left perihilar infiltrate extending towards the left peripheral lung infiltrate which was stable compared to January 2019. No suspicious changes to suggest metastatic or recurrent neoplasm. No other scans available in the system. The patient came to the emergency room today after sustaining a fall while walking across the street to catch a bus. Legs got quite weak, unable to hold him. He does have a abrasion over his left eye. Denies any other injuries at this point. He is somewhat slow to respond. He is oriented to person place and time. He was found to have significant hyponat remia with a sodium of 107. Serum osmolality 231. Urine osmolality 255. Urine random creatinine 107. Creatinine 1.34. Chloride 75. Bicarb 20. White count 7.2. Hemoglobin 11.6. TSH 1.38. Cortisol 26. Chest x-ray reveals unchanged elevation of the left hemidiaphragm as compared to 2017. There is new airspace disease of the left midlung zone. He is maintaining good O2 saturations up to 1 00% on room air. Denies any worsening shortness of breath, cough or congestion. He states he has been having weakness and occasional vomiting. Denies diarrhea. He states he lives alone in an apartment. He has a legal guardian. He states he has not seen an oncologist several years. Computed tomography scan of the brain and C-spine without contrast revealed no acute fracture or dislocation of the C-spine. No acute intracranial hemorrhage, mass effect or midline shift seen. Reevaluated today on 01/31/2021, patient remains in the ICU, remains on 3% saline, sodium improved from 110 initially on admission up to 113 today. Patient remains on the protocol for hypertonic saline. He is also on fluid restrictions. And I plan to continue monitoring the patient in the ICU for the next [address] of the head showed no evidence of acute findings, patient will eventually require more scanning of the lungs and of the abdomen and pelvis, however with his renal status I would rather wait for now. Patient does have history of small cell lung cancer diagnosed and treated in 2019, however he had no further follow-up since then. Thyroid profile is normal and serum cortisol is normal. Considering the patient had history of small cell lung cancer, this is SIADH related unless for otherwise. Reevaluated today on 02/01/2021, patient remains in the ICU, doing well, his sodium is up to 117, remains on IV fluid in the form of 0.9 normal saline at 75 mL/h, remains on fluid restrictions, and today I cut down his IV fluid to 25 mL per hour. I added demeclocycline. 150 twice a day, his renal functioning is improving but not back to normal. Patient may need CT of the chest abdomen and pelvis, and this could be done probably in the next 24 hours assuming conceal function continues to improve. In the meantime we plan to continue correcting his sodium, and I plan to continue monitoring the patient in the ICU until his sodium is above 121. Will wait on scanning the patient but eventually the patient needs to be scanned from head to bottom. The presentation is most likely a presentation of SIADH secondary to recurrent small cell lung cancer. On 02/02/2021 she is seen in follow-up in intensive care unit. He is calm and comfortable, he is awake and alert, oriented 3, breathing comfortably, room air pulse ox is 100%, hemodynamically patient is stable, IV fluids have been hep- locked, he remains on 1200 mL fluid restriction, his appetite is fair, his sodium today is 122. His mentation is appropriate, no confusion. He is answering questions appropriately, had no acute events overnight, lung sounds are clear, diminished at the bases. No recent chest x-ray. Today's labs have been reviewed, white blood cell count is 5.3, hemoglobin is 10.2, sodium was 122 as mentioned above, potassium 4.1, chloride is 93, the rest of electrolytes and renal profile were unremarkable. Remains on a combination of azithromycin and Rocephin empirically. Has had no fever or chills since admission. She does have peripheral edema, 2+ edema in lower extremities. Could benefit from a dose of IV Lasix. Otherwise no acute events overnight, no nausea vomiting or diarrhea. Objective - Vital Signs Vital signs: Vital Signs Temp 97.9 F 02/02/21 08:00 Pulse 80 02/02/21 08:00 Resp 14 02/02/21 08:00 BP 111/71 02/02/21 08:00 Pulse Ox 100 02/02/21 08:00 Intake & Output 02/01/21 02/02/21 02/02/21 18:59 06:59 18:59 Intake Total 1520 480 Output Total 1245 1900 900 Balance 275 -1420 -900 Intake: IV 300 Sodium Chloride 0.9% 1, 300 000 ml @ 75 mls/hr IV . [id number] MOUSTAPHA Rx#:[id number] Intake, IV Titration 300 Amount Azithromycin 500 mg In 250 Sodium Chloride 0.9% 250 ml @ 250 mls/hr IVPB Q24H MOUSTAPHA Rx#:[id number] cefTRIAXone 1 gm In 50 Sodium Chloride 0.9% 50 ml @ 100 mls/hr IVPB Q24H MOUSTAPHA Rx#:[id number] Oral 920 480 Output: Urine 1245 1900 900 Other: Voiding Method Indwelling Catheter Indwelling Catheter Indwelling Catheter - Exam GENERAL EXAM: Alert, pleasant, 55-year-old white male, on room air with a pulse ox of 100%, oriented 3 comfortable in no apparent distress. HEAD: Normocephalic/atraumatic. EYES: Normal reaction of pupils, equal size. Conjunctiva pink, sclera white. NOSE: Clear with pink turbinates. THROAT: No erythema or exudates. NECK: No masses, no JVD, no thyroid enlargement, no adenopathy. CHEST: No chest wall deformity. Symmetrical expansion. LUNGS: Equal air entry with no crackles, wheeze, rhonchi or dullness. CVS: Regular rate and rhythm, normal S1 and S2, no gallops, no murmurs, no rubs ABDOMEN: Soft, nontender. No hepatosplenomegaly, normal bowel sounds, no guarding or rigidity. EXTREMITIES: No clubbing, plus lower extremity edema, no cyanosis, 2+ pulses and upper and lower extremities. MUSCULOSKELETAL: Muscle strength and tone normal. SPINE: No scoliosis or deformity SKIN: No rashes CENTRAL NERVOUS SYSTEM: Alert and oriented -3. No focal deficits, tone is normal in all 4 extremities. PSYCHIATRIC: Alert and oriented -3. Appropriate affect. Intact judgment and insight. - Labs CBC & Chem 7: 02/02/21 02:55 02/02/21 02:55 Labs: Abnormal Lab Results - Last 24 Hours (Table) 02/01/21 02/01/21 02/01/21 Range/Units 12:08 17:09 23:59 RBC (4.30-5.90) m/uL Hgb (13.0-17.5) gm/dL Hct (39.0-53.0) % RDW (11.5-15.5) % Plt Count (150-450) k/uL Lymphocytes # (1.0-4.8) k/uL Sodium 117 L* 120 L 121 L (137-145) mmol/L Chloride 92 L (98-107) mmol/L Total Protein (6.3-8.2) g/dL Albumin (3.5-5.0) g/dL 02/02/21 02/02/21 Range/Units 02:55 02:55 RBC 3.08 L (4.30-5.90) m/uL Hgb 10.2 L (13.0-17.5) gm/dL Hct 28.9 L (39.0-53.0) % RDW 16.9 H (11.5-15.5) % Plt Count 141 L (150-450) k/uL Lymphocytes # 0.6 L (1.0-4.8) k/uL Sodium 122 L (137-145) mmol/L Chloride 93 L (98-107) mmol/L Total Protein 4.4 L (6.3-8.2) g/dL Albumin 2.6 L (3.5-5.0) g/dL Assessment and Plan Plan: Assessment: #1. Severe hyponatremia, most likely secondary to SIADH related to underlying small cell lung cancer, improving #2. Acute on chronic renal failure, improved #3. History of small cell lung cancer diagnosed in 2017, status post chemo and radiation treatment, however has not had any follow-up in 2019 #4. Nonspecific left upper lobe and left mid lung disease possibly related to previous history of small cell lung cancer with residual scarring, and active disease cannot be completely excluded. We'll follow up with CT chest abdomen and pelvis today #5. History of type 2 diabetes mellitus #6. Benign essential hypertension #7. Tobacco dependence syndrome Plan: Continue fluid restriction Obtain pro-calcitonin level We will give 1 dose of Lasix 40 mg Continue following serum sodium Obtain CT chest abdomen and pelvis with IV contrast We'll continue to follow I performed a history & physical examination of the patient and discussed their management with my nurse practitioner, Inocencai Lr. I reviewed the nurse pra ctitioner's note and agree with the documented findings and plan of care. Lung sounds are positive for clear breath sounds throughout the lung whalen. The findings and the impression was discussed with the patient. I attest to the documentation by the nurse practitioner. Time with Patient: Less than 30
--- NOTE | 2021-02-02 12:53 | P.CN ---
Psychiatric Consult - . Consult date: 02/02/21 Consult:: 02/02/21 12:49 IDENTIFYING DATA: This patient is a single, unemployed, 54-year-old male with significant history of schizophrenia and small cell lung carcinoma admitted for weakness HISTORY OF PRESENT ILLNESS: The patient presented to the hospital on 01/30/21 after experiencing a fall. The patient reportedly was waiting to catch a bus but felt like his legs were too weak to hold him up and therefore he experienced a significant fall.The patient denied any head trauma or loss of consciousness. Initial diagnostic blood work revealed significant hyponatremia with sodium of 107. The patient was most recently admitted to the psychiatric unit from 01/23/2021 to 01/28/2021 for psychosis. He was discharged on a regimen of invega sustenna with the last loading dose of 234 mg IM given on 01/27/2021 and his next dose of invega sustenna 156 mg IM to be given on 02/03/2021. He was also prescribed lexapro. Psychiatry has been consulted for evaluation of hyponatremia with concern for medication side effect. Currently the patient is not endorsing any significant symptoms of psychosis at this time. He is denying any auditory or visual hallucinations. He is denying any paranoia or delusions. He is not reporting any significant mood symptoms either. He is denying any suicidal or homicidal ideation, intention, and/or plan. He denies any access to firearms or other weapons. Patient does report that he has been adherent with his medications. He does appear to be somewhat of a poor historian, stating that he has not taken Lexapro in over a year despite the patient being discharged on Lexapro 20 mg on 01/28/2021. It is uncertain at this time whether the patient has been attempts this medication has been taking Lexapro at all. PAST PSYCHIATRIC HISTORY: Patient has a history of schizoaffective disorder. And patient has been previously prescribed Clozaril and Lexapro. His most recently discharged with invega and lexapro. The patient was most previously hospitalized on 3 MHU and discharged on 01/28/2021. He follows up with [facility]. PAST MEDICAL HISTORY: denies. ALLERGIES: NO KNOWN DRUG ALLERGIES CHEMICAL DEPENDENCY HISTORY: Patient denies any tobacco, alcohol, marijuana, or illicit drug use. FAMILY PSYCHIATRIC/SUBSTANCE USE HISTORY: Denies SOCIAL HISTORY: Patient was born and raised in [place], [place]. He completed up to 10th grade. He reports no work history. He currently lives alone. He denies any legal problems. MENTAL STATUS EXAM: General Appearance: Patient appears to be stated age is alert, pleasant, and cooperative. Patient appears to have fair hygiene and grooming wearing hospital gown with fair eye contact. Behavior: Patient is calmly lying in bed without any agitated behavior. Speech: Patient's speech is fluent and nonpressured. Mood/Affect: Patient reports their mood is "doing fine", affect is blunted but euthymic. Suicidality/Homicidality: Patient denies having any suicidal or homicidal ideation intent or plan. Perceptions: Patient denies any visual hallucinations and denies any auditory hallucinations Though content/process: There is no evidence of any delusional thought content and thought process is linear and goal-directed. Memory and concentration: AOX3, grossly intact for the purposes of this session. Can spell "WORLD" backwards Judgment and insight: Fair Vital Signs Temp 97.9 F 02/02/21 08:00 Pulse 80 02/02/21 08:00 Resp 14 02/02/21 08:00 BP 111/71 02/02/21 08:00 Pulse Ox 100 02/02/21 08:00 Intake & Output 02/01/21 02/02/21 02/02/21 18:59 06:59 18:59 Intake Total 1520 480 Output Total 1245 1900 900 Balance 275 -1420 -900 Intake: IV 300 Sodium Chloride 0.9% 1, 300 000 ml @ 75 mls/hr IV . [id number] MOUSTAPHA Rx#:[id number] Intake, IV Titration 300 Amount Azithromycin 500 mg In 250 Sodium Chloride 0.9% 250 ml @ 250 mls/hr IVPB Q24H MOUSTAPHA Rx#:[id number] cefTRIAXone 1 gm In 50 Sodium Chloride 0.9% 50 ml @ 100 mls/hr IVPB Q24H MOUSTAPHA Rx#:[id number] Oral 920 480 Output: Urine 1245 1900 900 Other: Voiding Method Indwelling Catheter Indwelling Catheter Indwelling Catheter Laboratory Results - Last 24 Hours 02/01/21 02/01/21 02/02/21 17:09 23:59 02:55 WBC 5.3 RBC 3.08 L Hgb 10.2 L Hct 28.9 L MCV 93.9 MCH 33.2 MCHC 35.3 RDW 16.9 H Plt Count 141 L MPV 6.8 Neutrophils % 81 Lymphocytes % 11 Monocytes % 5 Eosinophils % 1 Basophils % 0 Neutrophils # 4.3 Lymphocytes # 0.6 L Monocytes # 0.3 Eosinophils # 0.1 Basophils # 0.0 Anisocytosis Slight Sodium 120 L 121 L Potassium 4.2 Chloride 92 L Carbon Dioxide 24 Anion Gap 5 BUN Creatinine Est GFR (CKD-EPI)AfAm Est GFR (CKD-EPI)NonAf Glucose Calcium Total Bilirubin AST ALT Alkaline Phosphatase Total Protein Albumin 02/02/21 02:55 WBC RBC Hgb Hct MCV MCH MCHC RDW Plt Count MPV Neutrophils % Lymphocytes % Monocytes % Eosinophils % Basophils % Neutrophils # Lymphocytes # Monocytes # Eosinophils # Basophils # Anisocytosis Sodium 122 L Potassium 4.1 Chloride 93 L Carbon Dioxide 26 Anion Gap 3 BUN 15 Creatinine 1.16 Est GFR (CKD-EPI)AfAm 83 Est GFR (CKD-EPI)NonAf 72 Glucose 93 Calcium 8.4 Total Bilirubin 0.2 AST 25 ALT 24 Alkaline Phosphatase 41 Total Protein 4.4 L Albumin 2.6 L IMPRESSIONS: Schizoaffective disorder Hyponatremia -Suspect secondary to Lexapro. Invega has shown up in literature to contribute to hyponatremia albeit rarely and is not listed as a common adverse reaction. PLAN: -Continue your medical management. -At this time patient DOES NOT meet criteria for inpatient psychiatric admission. Patient is not actively psychotic or presenting with imminent risk of harm to self or others. -Delirium precautions recommended with patient including - avoiding use of narcotics and [employer] sedatives, limit anticholinergic medications when possible, frequent re-orientation, minimize use of restraints, open window shades during the day and close them at night -Would recommend the following medication changes/additions: Discontinue Lexapro as that may contribute to hyponatremia. Second loading dose of 156 mg IM is due tomorrow. Patient does not appear to be actively psychotic, altered, or requiring immediate psychiatric intervention. Hold invega sustenna second dose at this time. Recommend outpatient psychiatric follow-up with [facility] to re-evaluate need for second loading dose of invega sustenna at this time. May consider transition to another second generation antipsychotic if hyponatremia was secondary to invega sustenna (albeit rare). -Psychiatry will sign off at this point, please contact with any questions. Thank you for this consult. 02/02/21 12:53
[2021-02-02] MEDS: IOPAMIDOL CONTRAST (ORAL USE) VIAL PO PRN ×2 (13:25→14:27)
--- NOTE | 2021-02-02 14:14 | P.PN ---
Subjective Progress Note Date: 02/02/21 This is a 55-year-old male who was recently admitted with weakness and fall and severe hyponatremia which is possibly multifactorial and is being closely monitored. Patient continues to be in the ICU with multiple consultations including transportation program director, nephrology, psychiatry following. Sodium today is 122 and current creatinine is 1.16. Patient has some bilateral lower extremity edema and given a dose of IV Lasix. Patient is continued on fluid restrictions of 1200 mL per day and is being given a dose of Samsca with recheck of sodium level this afternoon. Review of systems: Constitutional: No reports of fatigue, fever, or chills Cardiovascular: No reports of chest pain or palpitations Respiratory: No reports of shortness of breath or cough GI: No reports of nausea, vomiting, or diarrhea : No reports of dysuria or retention Neurovascular: Reports generalized weakness All medications have been reviewed Active Medications Acetaminophen (Acetaminophen Tab 325 Mg Tab) 650 mg PO Q6HR PRN PRN Reason: Fever and/ or Pain Heparin Sodium (Porcine) (Heparin Sodium,Porcine/Pf 5,000 Unit/0.5 Ml Syringe) 5,000 unit SQ Q12HR [facility] Last Admin: 02/02/21 08:40 Dose: 5,000 unit Documented by: Azithromycin 500 mg/ Sodium (Chloride) 250 mls @ 250 mls/hr IVPB Q24H [facility] Last Admin: 02/01/21 16:56 Dose: 250 mls/hr Documented by: Ceftriaxone Sodium 1 gm/ (Sodium Chloride) 50 mls @ 100 mls/hr IVPB Q24H [facility] Last Admin: 02/01/21 16:53 Dose: 100 mls/hr Documented by: Iopamidol (Iopamidol Contrast (Oral Use) Vial) 30 ml PO Q60M PRN PRN Reason: CT Scan Stop: 02/02/21 20:08 Last Admin: 02/02/21 13:25 Dose: 30 ml Documented by: Midodrine (Midodrine 5 Mg Tab) 5 mg PO AC-TID [facility] Last Admin: 02/02/21 11:43 Dose: 5 mg Documented by: Naloxone HCl (Naloxone 0.4 Mg/Ml 1 Ml Vial) 0.2 mg IV Q2M PRN PRN Reason: Opioid Reversal Pantoprazole Sodium (Pantoprazole 40 Mg/10 Ml Vial) 40 mg IVP DAILY [facility] Last Admin: 02/02/21 08:40 Dose: 40 mg Documented by: Objective - Vital Signs Vital signs: Vital Signs Temp 97.9 F 02/02/21 08:00 Pulse 80 02/02/21 08:00 Resp 14 02/02/21 08:00 BP 111/71 02/02/21 08:00 Pulse Ox 100 02/02/21 08:00 Intake & Output 02/01/21 02/02/21 02/02/21 18:59 06:59 18:59 Intake Total 1520 480 Output Total 1245 1900 900 Balance 275 -1420 -900 Intake: IV 300 Sodium Chloride 0.9% 1, 300 000 ml @ 75 mls/hr IV . [id number] [facility] Rx#:[id number] Intake, IV Titration 300 Amount Azithromycin 500 mg In 250 Sodium Chloride 0.9% 250 ml @ 250 mls/hr IVPB Q24H [facility] Rx#:[id number] cefTRIAXone 1 gm In 50 Sodium Chloride 0.9% 50 ml @ 100 mls/hr IVPB Q24H [facility] Rx#:[id number] Oral 920 480 Output: Urine 1245 1900 900 Other: Voiding Method Indwelling Catheter Indwelling Catheter Indwelling Catheter - Exam Gen: This is a 55-year-old male awake, alert and oriented 2. Temp is 97.9F, pulse is 80, respirations are 14, blood pressure is 111/71, oxygen saturations are 100% on room air. HEENT: Head is atraumatic, normocephalic. Pupils equal, round. Sclerae is anicteric. NECK: Supple. No JVD. No lymphadenopathy. No thyromegaly. LUNGS: Breath sounds diminished bilaterally with a few scattered rhonchi noted. No intercostal retractions. HEART: S1, S2 are muffled ABDOMEN: Soft. Bowel sounds are present. No masses. No tenderness. EXTREMITIES: No pedal edema. No calf tenderness. NEUROLOGICAL: Patient is awake, alert and oriented x2-3. No focal deficits noted. - Labs CBC & Chem 7: 02/02/21 02:55 02/02/21 02:55 Labs: Abnormal Lab Results - Last 24 Hours (Table) 02/01/21 02/01/21 02/01/21 Range/Units 12:08 17:09 23:59 RBC (4.30-5.90) m/uL Hgb (13.0-17.5) gm/dL Hct (39.0-53.0) % RDW (11.5-15.5) % Plt Count (150-450) k/uL Lymphocytes # (1.0-4.8) k/uL Sodium 117 L* 120 L 121 L (137-145) mmol/L Chloride 92 L (98-107) mmol/L Total Protein (6.3-8.2) g/dL Albumin (3.5-5.0) g/dL 02/02/21 02/02/21 Range/Units 02:55 02:55 RBC 3.08 L (4.30-5.90) m/uL Hgb 10.2 L (13.0-17.5) gm/dL Hct 28.9 L (39.0-53.0) % RDW 16.9 H (11.5-15.5) % Plt Count 141 L (150-450) k/uL Lymphocytes # 0.6 L (1.0-4.8) k/uL Sodium 122 L (137-145) mmol/L Chloride 93 L (98-107) mmol/L Total Protein 4.4 L (6.3-8.2) g/dL Albumin 2.6 L (3.5-5.0) g/dL Assessment and Plan Assessment: Acute severe hyponatremia, possibly SIADH History of small cell lung cancer in 2017 status post chemoradiation Possible left lower lobe pneumonia versus malignancy Previous workup including PET scan on the left lung nodule Anemia, normocytic anemia of chronic disease and possible nutritional Increased creatinine with acute renal failure, acute tubular necrosis Diabetes mellitus type 2 Hypertension Hyperlipidemia history of noncompliance Schizoaffective disorder history of nicotine dependence Full code Recommendations and discussion: Recommend continue current medications, management, and symptomatic treatment. Production Troubleshooter along with nephrology following. Patient was seen and evaluated by psychiatry recommending discontinuing Lexapro and following up outpatient [facility] once stabilized and discharged. Patient did have a computed tomography scan ordered of the chest abdomen pelvis to assess for possible metastasis although sodium continues to be low and creatinine slightly up and will monitor closely. Due to multiple complex medical issues, prognosis is guarded.
--- NOTE | 2021-02-02 15:49 | CT ---
EXAMINATION TYPE: CT ChestAbdPelvis w con DATE OF EXAM: 02/02/2021 INDICATION: Rule out recurrent small cell lung cancer. COMPARISON: 06/21/2019 CT DLP: 918.1 mGycm CONTRAST: Performed with Oral Contrast and with IV Contrast, patient injected with 100 mL of Isovue 300. TECHNIQUE: Axial images at 5 mm thick sections. Reconstructed images in the coronal plane. Delayed images through the kidneys. FINDINGS: CT CHEST: Portion of the thyroid visualized is normal. There is a small right pleural effusion. Very minimal left pleural fluid is present. There is some co mpressive atelectasis adjacent to the right pleural effusion. There is streak opacity extending from the left hilar region to the periphery. Differential diagnosis could include pneumonia and recurrent neoplasm. Soft tissue thickening along the periphery of the ma rgin has increased from comparison measuring 2.7 x 1.5 cm. Previous measurement 2.2 x 1.2 cm No enlarged mediastinal or hilar adenopathy is evident. The ascending aorta diameter at the level of the main pulmonary artery is 3.4 cm. The main pulmonary artery diameter at the bifurcation is 2.[address] ABDOMEN: Liver: Normal Spleen: Normal Pancreas: Atrophic Adrenal glands: The adrenal glands are normal. Gallbladder: Normal Kidneys: No masses are evident. No hydronephrosis is present. There is a 1.2 cm cyst on the superio r lateral left kidney. No renal stones are identified. Aorta: Vascular calcification is within the aorta. Inferior vena cava: Normal. CT PELVIS: Subcutaneous emphysema is over pelvic subcutaneous tissues. There is some soft tissue thic kening or fluid in the presacral space Loops of bowel within the abdomen and pelvis are normal. There are loops of bowel which are incom pletely distended or lack oral contrast limiting their evaluation. Appendix: Normal as visualized. Urinary bladder: There is diffuse thickening of the urinary bladder. This is decompressed with a Fole y catheter. Air is present within the urinary bladder. Genitourinary structures: Prostate is normal. Some calcification is present Osseous structures: No suspicious lytic or sclerotic lesions. IMPRESSIONS: 1. Small right and minimal left pleural effusion. Some compressive atelectasis adjacent to the right pleural effusion. 2. Increasing peripheral soft tissue density left midlung. Recurrent neoplasm, atelectasis, pneumonia are within the differential. 3. Decompressed urinary bladder with a Fishman catheter. Urinary bladder contains air and has thickened wall.
[2021-02-02] MEDS: AZITHROMYCIN 500 MG in SODIUM CHLORIDE 0.9% 250 ML IVPB SCH (16:08)
[2021-02-02] MEDS ORDERED: TOLVAPTAN 15 MG 1/2 TABLET PO ONE (22:17)
[2021-02-03 03:58] LABS: Anisocytosis Slight; Basophils % (A) 0 %; Eosinophils # (A) 0.1 k/uL (0-0.7); Eosinophils % (A) 1 %; HCT 30.6 % (39.0-53.0); HGB 10.5 gm/dL (13.0-17.5); Lymphocytes # (A) 0.6 k/uL (1.0-4.8); Lymphocytes % (A) 10 %; MCH 32.6 pg (25.0-35.0); MCHC 34.3 g/dL (31.0-37.0); MCV 95.1 fL (80.0-100.0); Mean Platelet Volume 7.5; Monocytes # (A) 0.4 k/uL (0-1.0); Monocytes % (A) 8 %; Neutrophils # (A) 4.5 k/uL (1.3-7.7); Neutrophils % (A) 78 %; Platelet Count 136 k/uL (150-450); RBC 3.21 m/uL (4.30-5.90); RDW 16.6 % (11.5-15.5); WBC 5.7 k/uL (3.8-10.6)
[2021-02-03 04:17] LABS: Albumin 2.8 g/dL (3.5-5.0); Calcium 8.7 mg/dL (8.4-10.2); Potassium 3.9 mmol/L (3.5-5.1); Total Bilirubin 0.2 mg/dL (0.2-1.3); Total Protein 4.7 g/dL (6.3-8.2)
[2021-02-03] MEDS: MIDODRINE 5 MG TAB PO SCH ×3 (06:38→16:35)
--- NOTE | 2021-02-03 07:33 | P.PN ---
Subjective Progress Note Date: 02/03/21 Principal diagnosis: Hyponatremia. This is a 55-year-old gentleman who follows with [facility]. He has a history of schizophrenia and is maintained on Invega, hypertension, type 2 diabetes mellitus, chronic kidney disease, chronic tobacco dependence. He was also diagnosed with small cell lung cancer back in 2016 and is status post radiation and chemotherapy. His last CAT scan of the chest here was in June 2019 that revealed a left perihilar infiltrate extending towards the left peripheral lung infiltrate which was stable compared to January 2019. No suspi cious changes to suggest metastatic or recurrent neoplasm. No other scans available in the system. The patient came to the emergency room today after sustaining a fall while walking across the street to catch a bus. Legs got quite weak, unable to hold him. He does have a abrasion over his left eye. Denies any other injuries at this point. He is somewhat slow to respond. He is oriented to person place and time. He was found to have significant hyponatremia with a sodium of 107. Serum osmolality 231. Urine osmolality 255. Urine random creatinine 107. Creatinine 1.34. Chloride 75. Bicarb 20. White count 7.2. Hemoglobin 11.6. TSH 1.38. Cortisol 26. Chest x-ray reveals unchanged elevation of the left hemidiaphragm as compared to 2017. There is new airspace disease of the left midlung zone. He is maintaining good O2 saturations up to 100% on room air. Denies any worsening shortness of breath, cough or congestion. He states he has been having weakness and occasional vom iting. Denies diarrhea. He states he lives alone in an apartment. He has a legal guardian. He states he has not seen an oncologist several years. Computed tomography scan of the brain and C-spine without contrast revealed no acute fracture or dislocation of the C-spine. No acute intracranial hemorrhage, mass effect or midline shift seen. Reevaluated today on 01/31/2021, patient remains in the ICU, remains on 3% saline, sodium improved from 110 initially on admission up to 113 today. Dano watt remains on the protocol for hypertonic saline. He is also on fluid restrictions. And I plan to continue monitoring the patient in the ICU for the next [address] of the head showed no evidence of acute findings, patient will eventually require more scanning of the lungs and of the abdomen and pelvis, however with his renal status I would rather wait for now. Patient does have history of small cell lung cancer diagnosed and treated in 2019, however he had no further follow-up since then. Thyroid profile is normal and serum cortisol is normal. Considering the patient had history of small cell lung cancer, this is SIADH related unless for otherwise. Reevaluated today on 02/01/2021, patient remains in the ICU, doing well, his sodium is up to 117, remains on IV fluid in the form of 0.9 normal saline at 75 mL/h, remains on fluid restrictions, and today I cut down his IV fluid to 25 mL per hour. I added demeclocycline. 150 twice a day, his renal functioning is improving but not back to normal. Patient may need CT of the chest abdomen and pelvis, and this could be done probably in the next 24 hours assuming conceal function continues to improve. In the meantime we plan to continue correcting his sodium, and I plan to continue monitoring the patient in the ICU until his sodium is above 121. Will wait on scanning the patient but eventually the patient needs to be scanned from head to bottom. The presentation is most likely a presentation of SIADH secondary to recurrent small cell lung cancer. On 02/02/2021 she is seen in follow-up in intensive care unit. He is calm and comfortable, he is awake and alert, oriented 3, breathing comfortably, room air pulse ox is 100%, hemodynamically patient is stable, IV fluids have been hep- locked, he remains on 1200 mL fluid restriction, his appetite is fair, his sodium today is 122. His mentation is appropriate, no confusion. He is answering questions appropriately, had no acute events overnight, lung sounds are clear, diminished at the bases. No recent chest x-ray. Today's labs have been reviewed, white blood cell count is 5.3, hemoglobin is 10.2, sodium was 122 as mentioned above, potassium 4.1, chloride is 93, the rest of electrolytes and renal profile were unremarkable. Remains on a combination of azithromycin and Rocephin empirically. Has had no fever or chills since admission. She does have peripheral edema, 2+ edema in lower extremities. Could benefit from a dose of IV Lasix. Otherwise no acute events overnight, no nausea vomiting or diarrhea. Progress note dated 02/03/2021. 55-year-old male who was seen in follow-up, in the intensive care unit, room 252. Currently, the patient's on room air. He's not receiving any IV fluids level was 124. Clinically he is doing well. The patient could be transferred out to the general medical floor. We said that yesterday but apparently there was no bed available. White count 5.7, hemoglobin 10.5, hematocrit 30.6, and platelet count 136,000. Sodium 124, potassium 3.9, chlorides 92, CO2 26, anion gap 6, BUN 15, and creatinine 1.14. Computed tomography scan of the chest abdomen and pelvis showed a small right minimal left pleural effusion. It's also some adjacent compressive atelectasis. There is increasing peripheral soft tissue density left midlung, recurrent neoplasm, atelectasis, or pneumonia, are within the differential. Urinary bladder is decompressed with a Fishman catheter. Objective - Vital Signs Vital signs: Vital Signs Temp 98.2 F 02/03/21 02:00 Pulse 72 02/03/21 02:00 Resp 18 02/03/21 02:00 BP 120/72 02/03/21 02:00 Pulse Ox 97 02/03/21 02:00 Intake & Output 02/02/21 02/03/21 02/03/21 18:59 06:59 18:59 Intake Total 1100 100 Output Total 1925 820 Balance -825 -720 Intake: Intake, IV Titration 300 Amount Azithromycin 500 mg In 250 Sodium Chloride 0.9% 250 ml @ 250 mls/hr IVPB Q24H [facility] Rx#:[id number] cefTRIAXone 1 gm In 50 Sodium Chloride 0.9% 50 ml @ 100 mls/hr IVPB Q24H [facility] Rx#:[id number] Oral 800 100 Output: Urine 1925 820 Other: Voiding Method Indwelling Catheter Indwelling Catheter # Voids 1 - Exam No acute distress, oriented 3. Currently on room air. HEENT examination is grossly unremarkable. Neck supple. Full range of motion. No adenopathy thyromegaly or neck vein distention. Cardiovascular examination reveals regular rhythm rate. S1-S2 normal. No S3 or S4. No discernible murmur noted. Heart rate is 72 bpm. Lungs reveal mild scattered rhonchi. No wheezes or crackles. Breath sounds equal bilaterally. Abdomen soft bowel sounds are heard. No masses or tenderness. Extremities are intact. No cyanosis clubbing or edema. Skin is without rash or lesion. Neurologic examination is brief but nonfocal. - Labs CBC & Chem 7: 02/03/21 03:14 02/03/21 03:14 Labs: Abnormal Lab Results - Last 24 Hours (Table) 02/02/21 02/02/21 02/02/21 Range/Units 02:55 13:12 20:01 RBC (4.30-5.90) m/uL Hgb (13.0-17.5) gm/dL Hct (39.0-53.0) % RDW (11.5-15.5) % Plt Count (150-450) k/uL Lymphocytes # (1.0-4.8) k/uL Sodium 124 L 124 L (137-145) mmol/L Chloride (98-107) mmol/L Total Protein (6.3-8.2) g/dL Albumin (3.5-5.0) g/dL Procalcitonin 0.16 H (0.02-0.09) ng/mL 02/03/21 02/03/21 Range/Units 03:14 03:14 RBC 3.21 L (4.30-5.90) m/uL Hgb 10.5 L (13.0-17.5) gm/dL Hct 30.6 L (39.0-53.0) % RDW 16.6 H (11.5-15.5) % Plt Count 136 L (150-450) k/uL Lymphocytes # 0.6 L (1.0-4.8) k/uL Sodium 124 L (137-145) mmol/L Chloride 92 L (98-107) mmol/L Total Protein 4.7 L (6.3-8.2) g/dL Albumin 2.8 L (3.5-5.0) g/dL Procalcitonin (0.02-0.09) ng/mL Assessment and Plan Assessment: #1. Severe hyponatremia, most likely secondary to SIADH related to underlying small cell lung cancer, improving. #2. Acute on chronic renal failure, improved. #3. History of small cell lung cancer diagnosed in 2017, status post chemo and radiation treatment, however has not had any follow-up in 2019. #4. Nonspecific left upper lobe and left mid lung disease possibly related to previous history of small cell lung cancer with residual scarring, and active disease cannot be completely excluded. We'll follow up with CT chest abdomen and pelvis today. #5. History of type 2 diabetes mellitus. #6. Benign essential hypertension. #7. Tobacco dependence syndrome. Plan: Plan dated 02/03/2021. The patient had a computed tomography scan of the chest, abdomen, and pelvis. Of note was the fact that there were small bilateral pleural effusions, and possibly an enlarging left midlung mass, which might reflect recurrent lung cancer. The patient will follow-up with Dr. Everett in the office, post discharge. Currently, the patient's doing well. He is not receiving any IV fluids or supplemental oxygen. The patient could be transferred out to the general medical floor. The patient's sodium today is 124. Time with Patient: Less than 30
[2021-02-03] MEDS: PANTOPRAZOLE 40 MG TABLET PO SCH (08:17)
[2021-02-03] MEDS: HEPARIN SODIUM,PORCINE/PF 5,000 UNIT/0.5 ML SYRINGE SQ SCH ×2 (08:17→20:04)
[2021-02-03] MEDS ORDERED: FUROSEMIDE 10 MG/ML 2 ML VIAL IV ONE (08:48)
[2021-02-03] MEDS ORDERED: TOLVAPTAN 15 MG 1/2 TABLET PO ONE (08:48)
--- NOTE | 2021-02-03 08:49 | P.PN ---
Subjective Patient is seen in follow-up for hyponatremia. Sodium level stable at 124 this AM. Oral intake is fair. No vomiting or diarrhea. Blood pressure stable. Vital signs are stable. General: The patient appeared well nourished and normally developed. HEENT: Head exam is unremarkable. LUNGS: Breath sounds decreased. HEART: Rate and Rhythm are regular. ABDOMEN: Soft, no distention. EXTREMITITES: 1+ edema. Objective - Vital Signs Vital signs: Vital Signs Temp 98.2 F 02/03/21 02:00 Pulse 72 02/03/21 02:00 Resp 18 02/03/21 02:00 BP 120/72 02/03/21 02:00 Pulse Ox 97 02/03/21 02:00 Intake & Output 02/02/21 02/03/21 02/03/21 18:59 06:59 18:59 Intake Total 1100 100 Output Total 1925 820 Balance -825 720 Intake: Intake, IV Titration 300 Amount Azithromycin 500 mg In 250 Sodium Chloride 0.9% 250 ml @ 250 mls/hr IVPB Q24H [facility] Rx#:[id number] cefTRIAXone 1 gm In 50 Sodium Chloride 0.9% 50 ml @ 100 mls/hr IVPB Q24H [facility] Rx#:[id number] Oral 800 100 Output: Urine 1925 820 Other: Voiding Method Indwelling Catheter Indwelling Catheter # Voids 1 - Labs CBC & Chem 7: 02/03/21 03:14 02/03/21 03:14 Labs: Abnormal Lab Results - Last 24 Hours (Table) 02/02/21 02/02/21 02/02/21 Range/Units 02:55 13:12 20:01 RBC (4.30-5.90) m/uL Hgb (13.0-17.5) gm/dL Hct (39.0-53.0) % RDW (11.5-15.5) % Plt Count (150-450) k/uL Lymphocytes # (1.0-4.8) k/uL Sodium 124 L 124 L (137-145) mmol/L Chloride (98-107) mmol/L Total Protein (6.3-8.2) g/dL Albumin (3.5-5.0) g/dL Procalcitonin 0.16 H (0.02-0.09) ng/mL 02/03/21 02/03/21 Range/Units 03:14 03:14 RBC 3.21 L (4.30-5.90) m/uL Hgb 10.5 L (13.0-17.5) gm/dL Hct 30.6 L (39.0-53.0) % RDW 16.6 H (11.5-15.5) % Plt Count 136 L (150-450) k/uL Lymphocytes # 0.6 L (1.0-4.8) k/uL Sodium 124 L (137-145) mmol/L Chloride 92 L (98-107) mmol/L Total Protein 4.7 L (6.3-8.2) g/dL Albumin 2.8 L (3.5-5.0) g/dL Procalcitonin (0.02-0.09) ng/mL Assessment and Plan Plan: Assessment: 1. Hyponatremia, slightly hypervolemic. Also component of underlying SIADH secondary to malignancy. Sodium level 124 this morning. Urine sodium less than 10 and urine osmolality 255. Status post 3% and Samsca this admission. 2. Chronic kidney disease stage III Baseline creatinine 1.1-1.3 secondary to nephrosclerosis. 3. History of small cell lung cancer. 4. Pneumonia maintained on antibiotics. 5. Mild acute kidney injury mostly prerenal secondary to hypotension. Resolved. Plan: Maintain fluid restriction. Lasix 20 mg IV once today. Samsca 15 mg once today. Repeat sodium level this evening. Encourage oral intake, particularly protein.
--- NOTE | 2021-02-03 10:04 | US ---
EXAMINATION TYPE: US venous doppler duplex UE LT DATE OF EXAM: 02/03/2021 COMPARISON: NONE CLINICAL HISTORY: Swelling/redness/pain LUE. swelling in left arm with redness, no h/o dvt, ICU pt si tting upright in chair SIDE PERFORMED: Left Left Arm: Negative for DVT Grayscale, color doppler, spectral doppler imaging performed of the deep veins of the upper extremiti es. There is normal flow, compressibility and vascular waveforms. IMPRESSION: No sonographic evidence for deep vein thrombosis of the left upper extremity.
--- NOTE | 2021-02-03 11:29 | P.PN ---
Subjective This is a 55-year-old male who was recently admitted with weakness and fall and severe hyponatremia which is possibly multifactorial and is being closely monitored. Patient continues to be in the ICU with multiple consultations including research food technologist, nephrology, psychiatry following. Sodium today is 122 and current creatinine is 1.16. Patient has some bilateral lower extremity edema and given a dose of IV Lasix. Patient is continued on fluid restrictions of 1200 mL per day and is being given a dose of Samsca with recheck of sodium level this afternoon. 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 she is status post Samsca today her sodium was still 13-4 since yesterday. A dose of Samsca is provided today by nephrology team, we'll keep monitoring sodium. Hemodynamically stable. Creatinine normal at 1.1. Patient has swollen left upper extremity, and her ultrasound is negative for DVT. CT of the chest showed left midlung opacity suspicious for cancer versus atelectasis.proCalcitonin is 0.16. evidence of pneumonia, no need for antibiotics. she does admit aware of his left lung lesion with recommendation for outpatient follow-up with professor of practice and he agrees. Patient is aware and he agrees to follow up with professor of practice upon discharge Currently he is on Zithromax, ceftriaxone Lexapro and invega are held because of hyponatremia and patient informed and he agrees. He was instructed to follow up with psychiatrist this week and he agrees: Make his appointment Review of systems CONSTITUTIONAL: No fever, no malaise, no fatigue. HEENT: No recent visual problems or hearing problems. Denied any sore throat. CARDIOVASCULAR: No orthopnea, PND, no palpitations, no syncope. PULMONARY: No shortness of breath, no cough, no hemoptysis. GASTROINTESTINAL: No diarrhea, no nausea, no vomiting, no abdominal pain. Normoactive bowel sounds. NEUROLOGICAL: No headaches, no weakness, no numbness. Objective - Vital Signs Vital signs: Vital Signs Temp 98.2 F 02/03/21 02:00 Pulse 72 02/03/21 02:00 Resp 18 02/03/21 02:00 BP 120/72 02/03/21 02:00 Pulse Ox 97 02/03/21 02:00 Intake & Output 02/02/21 02/03/21 02/03/21 18:59 06:59 18:59 Intake Total 1100 100 Output Total 1925 820 Balance -825 -720 Intake: Intake, IV Titration 300 Amount Azithromycin 500 mg In 250 Sodium Chloride 0.9% 250 ml @ 250 mls/hr IVPB Q24H MOUSTAPHA Rx#:[id number] cefTRIAXone 1 gm In 50 Sodium Chloride 0.9% 50 ml @ 100 mls/hr IVPB Q24H MOUSTAPHA Rx#:[id number] Oral 800 100 Output: Urine 5 820 Other: Voiding Method Indwelling Catheter Indwelling Catheter # Voids 1 - Exam GENERAL: The patient is alert and oriented x3, not in any acute distress. Well developed, well nourished. HEENT: Pupils are round and equally reacting to light. EOMI. No scleral icterus. No conjunctival pallor. Normocephalic, atraumatic. No pharyngeal erythema. No thyromegaly. CARDIOVASCULAR: S1 and S2 present. No murmurs, rubs, or gallops. PULMONARY: Chest is clear to auscultation, no wheezing or crackles. ABDOMEN: Soft, nontender, nondistended, normoactive bowel sounds. No palpable organomegaly. MUSCULOSKELETAL: No joint swelling or deformity. -EXTREMITIES: No cyanosis, clubbing, or pedal edema. Left upper extremity is swollen no tenderness or erythema NEUROLOGICAL: Gross neurological examination did not reveal any focal deficits. SKIN: No rashes. no petechiae. - Labs CBC & Chem 7: 02/03/21 03:14 02/03/21 03:14 Labs: Abnormal Lab Results - Last 24 Hours (Table) 02/02/21 02/02/21 02/02/21 Range/Units 02:55 13:12 20:01 RBC (4.30-5.90) m/uL Hgb (13.0-17.5) gm/dL Hct (39.0-53.0) % RDW (11.5-15.5) % Plt Count (150-450) k/uL Lymphocytes # (1.0-4.8) k/uL Sodium 124 L 124 L (137-145) mmol/L Chloride (98-107) mmol/L Total Protein (6.3-8.2) g/dL Albumin (3.5-5.0) g/dL Procalcitonin 0.16 H (0.02-0.09) ng/mL 02/03/21 02/03/21 Range/Units 03:14 03:14 RBC 3.21 L (4.30-5.90) m/uL Hgb 10.5 L (13.0-17.5) gm/dL Hct 30.6 L (39.0-53.0) % RDW 16.6 H (11.5-15.5) % Plt Count 136 L (150-450) k/uL Lymphocytes # 0.6 L (1.0-4.8) k/uL Sodium 124 L (137-145) mmol/L Chloride 92 L (98-107) mmol/L Total Protein 4.7 L (6.3-8.2) g/dL Albumin 2.8 L (3.5-5.0) g/dL Procalcitonin (0.02-0.09) ng/mL Assessment and Plan Assessment: Acute severe hyponatremia, possibly SIADH Left lung opacities suspicious for recurrent cancer Left upper extremity swelling with negative DVT History of small cell lung cancer in 2017 status post chemoradiation Possible left lower lobe pneumonia versus malignancy Previous workup including PET scan on the left lung nodule Anemia, normocytic anemia of chronic disease and possible nutritional Increased creatinine with acute renal failure, acute tubular necrosis Diabetes mellitus type 2 Hypertension Hyperlipidemia history of noncompliance Schizoaffective disorder history of nicotine dependence Plan: This is a pleasant 55 years old male who presents with hyponatremia andleft lung nodule/mass. Nephrology and pulmonary of the case. Status postop Skaff type stool. Continue antibiotic Labs and medication were reviewed.. Continue same treatment. Continue with symptomatic treatment. Resume home medication. Monitor lytes and vitals. DVT and GI prophylaxis. Further recommendationsas per clinical course of the patient DVT prophylaxis: Subcutaneous heparin GI Prophylaxis: Ppi Prognosis is guarded
[2021-02-03] MEDS ORDERED: AZITHROMYCIN 500 MG TAB PO SCH (16:00)
[2021-02-04 04:29] LABS: Anisocytosis Slight; Basophils % (A) 0 %; Eosinophils # (A) 0.1 k/uL (0-0.7); Eosinophils % (A) 1 %; HCT 29.2 % (39.0-53.0); HGB 9.9 gm/dL (13.0-17.5); Lymphocytes # (A) 0.5 k/uL (1.0-4.8); Lymphocytes % (A) 14 %; MCH 33.3 pg (25.0-35.0); MCHC 33.9 g/dL (31.0-37.0); MCV 98.1 fL (80.0-100.0); Macrocytosis Slight; Mean Platelet Volume 6.4; Monocytes # (A) 0.3 k/uL (0-1.0); Monocytes % (A) 7 %; Neutrophils # (A) 2.6 k/uL (1.3-7.7); Neutrophils % (A) 73 %; Platelet Count 146 k/uL (150-450); RBC 2.98 m/uL (4.30-5.90); RDW 17.6 % (11.5-15.5); WBC 3.6 k/uL (3.8-10.6)
[2021-02-04 04:42] LABS: Albumin 2.5 g/dL (3.5-5.0); Calcium 8.6 mg/dL (8.4-10.2); Potassium 3.8 mmol/L (3.5-5.1); Total Bilirubin 0.1 mg/dL (0.2-1.3); Total Protein 4.3 g/dL (6.3-8.2)
[2021-02-04] MEDS: MIDODRINE 5 MG TAB PO SCH ×2 (07:00→12:27)
[2021-02-04] MEDS: HEPARIN SODIUM,PORCINE/PF 5,000 UNIT/0.5 ML SYRINGE SQ SCH (08:57)
[2021-02-04] MEDS: PANTOPRAZOLE 40 MG TABLET PO SCH (08:57)
--- NOTE | 2021-02-04 08:59 | P.PN ---
Subjective Progress Note Date: 02/04/21 Principal diagnosis: Hyponatremia. This is a 55-year-old gentleman who follows with [facility]. He has a history of schizophrenia and is maintained on Invega, hypertension, type 2 diabetes mellitus, chronic kidney disease, chronic tobacco dependence. He was also diagnosed with small cell lung cancer back in 2016 and is status post radiation and chemotherapy. His last CAT scan of the chest here was in June 2019 that revealed a left perihilar infiltrate extending towards the left peripheral lung infiltrate which was stable compared to January 2019. No suspi cious changes to suggest metastatic or recurrent neoplasm. No other scans available in the system. The patient came to the emergency room today after sustaining a fall while walking across the street to catch a bus. Legs got quite weak, unable to hold him. He does have a abrasion over his left eye. Denies any other injuries at this point. He is somewhat slow to respond. He is oriented to person place and time. He was found to have significant hyponatremia with a sodium of 107. Serum osmolality 231. Urine osmolality 255. Urine random creatinine 107. Creatinine 1.34. Chloride 75. Bicarb 20. White count 7.2. Hemoglobin 11.6. TSH 1.38. Cortisol 26. Chest x-ray reveals unchanged elevation of the left hemidiaphragm as compared to 2017. There is new airspace disease of the left midlung zone. He is maintaining good O2 saturations up to 100% on room air. Denies any worsening shortness of breath, cough or congestion. He states he has been having weakness and occasional vom iting. Denies diarrhea. He states he lives alone in an apartment. He has a legal guardian. He states he has not seen an oncologist several years. Computed tomography scan of the brain and C-spine without contrast revealed no acute fracture or dislocation of the C-spine. No acute intracranial hemorrhage, mass effect or midline shift seen. Reevaluated today on 01/31/2021, patient remains in the ICU, remains on 3% saline, sodium improved from 110 initially on admission up to 113 today. Dano watt remains on the protocol for hypertonic saline. He is also on fluid restrictions. And I plan to continue monitoring the patient in the ICU for the next [address] of the head showed no evidence of acute findings, patient will eventually require more scanning of the lungs and of the abdomen and pelvis, however with his renal status I would rather wait for now. Patient does have history of small cell lung cancer diagnosed and treated in 2019, however he had no further follow-up since then. Thyroid profile is normal and serum cortisol is normal. Considering the patient had history of small cell lung cancer, this is SIADH related unless for otherwise. Reevaluated today on 02/01/2021, patient remains in the ICU, doing well, his sodium is up to 117, remains on IV fluid in the form of 0.9 normal saline at 75 mL/h, remains on fluid restrictions, and today I cut down his IV fluid to 25 mL per hour. I added demeclocycline. 150 twice a day, his renal functioning is improving but not back to normal. Patient may need CT of the chest abdomen and pelvis, and this could be done probably in the next 24 hours assuming conceal function continues to improve. In the meantime we plan to continue correcting his sodium, and I plan to continue monitoring the patient in the ICU until his sodium is above 121. Will wait on scanning the patient but eventually the patient needs to be scanned from head to bottom. The presentation is most likely a presentation of SIADH secondary to recurrent small cell lung cancer. On 02/02/2021 she is seen in follow-up in intensive care unit. He is calm and comfortable, he is awake and alert, oriented 3, breathing comfortably, room air pulse ox is 100%, hemodynamically patient is stable, IV fluids have been hep- locked, he remains on 1200 mL fluid restriction, his appetite is fair, his sodium today is 122. His mentation is appropriate, no confusion. He is answering questions appropriately, had no acute events overnight, lung sounds are clear, diminished at the bases. No recent chest x-ray. Today's labs have been reviewed, white blood cell count is 5.3, hemoglobin is 10.2, sodium was 122 as mentioned above, potassium 4.1, chloride is 93, the rest of electrolytes and renal profile were unremarkable. Remains on a combination of azithromycin and Rocephin empirically. Has had no fever or chills since admission. She does have peripheral edema, 2+ edema in lower extremities. Could benefit from a dose of IV Lasix. Otherwise no acute events overnight, no nausea vomiting or diarrhea. Progress note dated 02/03/2021. 55-year-old male who was seen in follow-up, in the intensive care unit, room 252. Currently, the patient's on room air. He's not receiving any IV fluids level was 124. Clinically he is doing well. The patient could be transferred out to the general medical floor. We said that yesterday but apparently there was no bed available. White count 5.7, hemoglobin 10.5, hematocrit 30.6, and platelet count 136,000. Sodium 124, potassium 3.9, chlorides 92, CO2 26, anion gap 6, BUN 15, and creatinine 1.14. Computed tomography scan of the chest abdomen and pelvis showed a small right minimal left pleural effusion. It's also some adjacent compressive atelectasis. There is increasing peripheral soft tissue density left midlung, recurrent neoplasm, atelectasis, or pneumonia, are within the differential. Urinary bladder is decompressed with a Fishman catheter. Progress note dated 02/04/2021. 55-year-old male, is again seen in the intensive care unit, room 252. Currently, the patient's not receiving any supplemental oxygen, or IV fluids. Today sodium is up to 129. The patient will need to follow my partner after discharge, as it relates to the abnormality seen on computed tomography scan. He may have recurrent small cell lung cancer. In addition, the patient could potentially be discharged home today. Certainly can move out of the unit, we will leave that up to the primary service as to discharge. Clinically he is doing well without any concerns or problems. White count 3.6, hemoglobin 9.9, hematocrit 29.2, and platelet count 146,000. Sodium 129, potassium 3.8, chlorides 95, CO2 30, anion gap or, BUN 12, and creatinine 1.11. Doppler evaluation of lower extremities negative. Objective - Vital Signs Vital signs: Vital Signs Temp 98.4 F 02/04/21 02:00 Pulse 86 02/04/21 02:00 Resp 18 02/04/21 02:00 BP 106/70 02/04/21 02:00 Pulse Ox 97 02/04/21 02:00 Intake & Output 02/03/21 02/04/21 02/04/21 18:59 06:59 18:59 Intake Total 600 100 Output Total 700 Balance -100 100 Intake: Oral 600 100 Output: Urine 700 Other: Voiding Method Toilet Toilet Urinal Urinal # Voids 2 - Exam No acute distress, oriented 3. Currently on room air. HEENT examination is grossly unremarkable. Neck supple. Full range of motion. No adenopathy thyromegaly or neck vein distention. Cardiovascular examination reveals regular rhythm rate. S1-S2 normal. No S3 or S4. No discernible murmur noted. Heart rate is 86 bpm. Lungs reveal mild scattered rhonchi. No wheezes or crackles. Breath sounds equ al bilaterally. Abdomen soft bowel sounds are heard. No masses or tenderness. Extremities are intact. No cyanosis clubbing or edema. Skin is without rash or lesion. Neurologic examination is brief but nonfocal. - Labs CBC & Chem 7: 02/04/21 03:17 02/04/21 03:17 Labs: Abnormal Lab Results - Last 24 Hours (Table) 02/03/21 02/04/21 02/04/21 Range/Units 18:33 03:17 03:17 WBC 3.6 L (3.8-10.6) k/uL RBC 2.98 L (4.30-5.90) m/uL Hgb 9.9 L (13.0-17.5) gm/dL Hct 29.2 L (39.0-53.0) % RDW 17.6 H (11.5-15.5) % Plt Count 146 L (150-450) k/uL Lymphocytes # 0.5 L (1.0-4.8) k/uL Sodium 126 L 129 L (137-145) mmol/L Chloride 95 L (98-107) mmol/L Total Bilirubin 0.1 L (0.2-1.3) mg/dL Total Protein 4.3 L (6.3-8.2) g/dL Albumin 2.5 L (3.5-5.0) g/dL Assessment and Plan Assessment: #1. Severe hyponatremia, most likely secondary to SIADH related to underlying small cell lung cancer, improving. #2. Acute on chronic renal failure, improved. #3. History of small cell lung cancer diagnosed in 2017, status post chemo and radiation treatment, however has not had any follow-up in 2019. #4. Nonspecific left upper lobe and left mid lung disease possibly related to previous history of small cell lung cancer with residual scarring, and active disease cannot be completely excluded. We'll follow up with CT chest abdomen and pelvis today. #5. History of type 2 diabetes mellitus. #6. Benign essential hypertension. #7. Tobacco dependence syndrome. Plan: Plan dated 02/03/2021. The patient had a computed tomography scan of the chest, abdomen, and pelvis. Of note was the fact that there were small bilateral pleural effusions, and possibly an enlarging left midlung mass, which might reflect recurrent lung cancer. The patient will follow-up with Dr. Everett in the office, post discharge. Currently, the patient's doing well. He is not receiving any IV fluids or supplemental oxygen. The patient could be transferred out to the general medical floor. The patient's sodium today is 124. Plan dated 02/04/2021. The patient's CAT scan of the chest, abdomen and pelvis are reviewed. There were small bilateral pleural effusions, and possibly an enlarging left mid lung mass. He may have recurrent disease. I explained he does need to follow with my partner. The patient's sodium is up to 129. Clinically he is doing well. The patient could be considered for possible discharge home today. Additional recommendations and suggestions are forthcoming. Time with Patient: Less than 30
[2021-02-04 12:22] VITALS: BP 106/77; PULSE 70; RESP 16; TEMP 98
--- NOTE | 2021-02-04 12:30 | P.PN ---
Subjective Patient is seen in follow-up for hyponatremia. Sodium level 129 this AM. Oral intake is fair. No vomiting or diarrhea. Blood pressure stable. No changes overnight. Vital signs are stable. General: The patient appeared well nourished and normally developed. HEENT: Head exam is unremarkable. LUNGS: Breath sounds decreased. HEART: Rate and Rhythm are regular. ABDOMEN: Soft, no distention. EXTREMITITES: Trace edema. Objective - Vital Signs Vital signs: Vital Signs Temp 98 F 02/04/21 12:21 Pulse 70 02/04/21 12:21 Resp 16 02/04/21 12:21 BP 106/77 02/04/21 12:21 Pulse Ox 100 02/04/21 12:21 Intake & Output 02/03/21 02/04/21 02/04/21 18:59 06:59 18:59 Intake Total 600 100 Output Total 700 Balance -100 100 Intake: Oral 600 100 Output: Urine 700 Other: Voiding Method Toilet Toilet Toilet Urinal Urinal Urinal # Voids 2 - Labs CBC & Chem 7: 02/04/21 03:17 02/04/21 03:17 Labs: Abnormal Lab Results - Last 24 Hours (Table) 02/03/21 02/04/21 02/04/21 Range/Units 18:33 03:17 03:17 WBC 3.6 L (3.8-10.6) k/uL RBC 2.98 L (4.30-5.90) m/uL Hgb 9.9 L (13.0-17.5) gm/dL Hct 29.2 L (39.0-53.0) % RDW 17.6 H (11.5-15.5) % Plt Count 146 L (150-450) k/uL Lymphocytes # 0.5 L (1.0-4.8) k/uL Sodium 126 L 129 L (137-145) mmol/L Chloride 95 L (98-107) mmol/L Total Bilirubin 0.1 L (0.2-1.3) mg/dL Total Protein 4.3 L (6.3-8.2) g/dL Albumin 2.5 L (3.5-5.0) g/dL Assessment and Plan Plan: Assessment: 1. Hyponatremia, slightly hypervolemic. Also component of underlying SIADH secondary to malignancy. Sodium level 129 this morning. Urine sodium less than 10 and urine osmolality 255. Status post 3% and Samsca this admission. 2. Chronic kidney disease stage IIIa, baseline creatinine 1.1-1.3 secondary to nephrosclerosis. 3. History of small cell lung cancer. 4. Pneumonia s/p antibiotics. 5. Mild acute kidney injury mostly prerenal secondary to hypotension. Resolved. Plan: Maintain fluid restriction. Encourage oral intake, particularly protein. Add Samsca 15 mg every other day. Repeat BMP and magnesium level 2-3 days postdischarge. Follow up outpatient in 1 week.
--- NOTE | 2021-02-04 15:32 | P.DS ---
Providers Date of admission: 01/30/21 13:51 Attending physician: Latosha Ndiaye Consults: 01/30/21 14:16 Consult Physician Stat Consulting Provider: [facility] Consult Reason/Comments: Critical care management Do you want consulting provider notified?: Already Contacted Consult Physician Stat Consulting Provider: Narcisa Garrett Consult Reason/Comments: Hyponatremia Do you want consulting provider notified?: Already Contacted 02/01/21 14:44 Consult Physician Routine Consulting Provider: Mika Rosario Consult Reason/Comments: hyponatremia possibly r/t medication Do you want consulting provider notified?: Yes Primary care physician: Stated None Hospital Course: Hospital course: Acute severe hyponatremia, possibly SIADH and dehydration. Suspecting it due to Lexapro Left lung opacities suspicious for recurrent cancer Left upper extremity swelling with negative DVT History of small cell lung cancer in 2017 status post chemoradiation Possible left lower lobe pneumonia versus malignancy Previous workup including PET scan on the left lung nodule Anemia, normocytic anemia of chronic disease and possible nutritional Increased creatinine with acute renal failure, acute tubular necrosis Diabetes mellitus type 2 Hypertension Hyperlipidemia history of noncompliance Schizoaffective disorder history of nicotine dependence Hospital course: This is a 55-year-old male who was recently admitted with weakness and fall and severe hyponatremia which is possibly multifactorial and is being closely monitored. Patient continues to be in the ICU with multiple consultations including shell freezing machine operator, nephrology, psychiatry following. Sodium today is improved to 129 after 2 doses of Samsca by electric truck operator. His hyponatremia is suspected due to Lexapro, less likely inVega which were held and explained the patient to follow up with his psychiatrist at [facility] which he says he can go see them in 1-2 days. However patient does not have any psych symptoms now saw no new medication prescribed by psychiatrist. Bench Assembly Inspector was following the patient closely, patient received 2 doses of Samsca which His sodium improved as above. Fortunately the patient on discharge with recommendation for Samsca every other day and prescription provided by electric truck operator upon discharge. Also looks like patient has chronic kidney disease with creatinine baseline at 1.1 1.3. Counselor Education Professor and shell freezing machine operator Dr. Alvarez were see the patient repeated CT of the chest, abdomen and pelvis was suspicious for streaky left midlung opacity suspicious for recurrent lung cancer. Patient has history of lung cancer about 3 years ago, is not on treatment and he is not followed up before. The chest cleared for discharge with close outpatient follow-up. Appointment was made for the patient's with Dr. Chen auto fleet manager on 02/12 at 11 AM. Patient used to see Dr. Richards before but he does not want to see him now instead he wants to see Dr. Chen first Clinically patient was doing very well, his back to normal self. Morning he is asymptomatic. No headache or weakness or numbness. Generalized weakness. No chest pain or dyspnea. No coughing. Change in urine or bowel habits. No fever. Patient feels he can go home today. I spoke with tenderness public guardian At [phone], and I discussed the case with him his diagnosis and management plan Also I informed him about the need for follow-up with Dr. Chen with the appointments made for him on 02/12 at 11 AM, reason is to assess for left lung mass, possible cancer recurrence, and he kindly took note of these as well as a recommendation to follow up with his [facility] psychiatrist in 1-2 days for medication reconciliation Problems and management plan were discussed with the patient and he verbalized understanding and acceptance Patient was found stable and can be discharged home however he needs follow-up as an outpatient. Patient was instructed to follow up with PCP within one week and patient agrees Patient was instructed to follow up with Dr. Chen on 02/12 at 11 AM and he agrees. Also to follow up with electric truck operator Dr. Garrett in 1-2 weeks and he agrees Physical exam Gen: patient is a AAOx3, no distress CVS: S1-S2, RRR, no murmur Lungs: B/L CTA, no wheezing Abdomen: soft, no distention, no tenderness, positive bowel sounds Extremity: no leg edema or induration Time spent more than 35 minutes Patient Condition at Discharge: Serious Plan - Discharge Summary Discharge Rx Participant: Yes New Discharge Prescriptions: New Midodrine [ProAmatine] 5 mg PO AC-TID #90 tab Tolvaptan [Samsca] 15 mg PO Q48H #30 tablet Discontinued Paliperidone IM [Invega Sustenna] 156 mg IM Q28D Discharge Medication List Midodrine [ProAmatine] 5 mg PO AC-TID #90 tab 02/04/21 [Rx] Tolvaptan [Samsca] 15 mg PO Q48H #30 tablet 02/04/21 [Rx] Follow up Appointment(s)/Referral(s): Ash Everett MD [STAFF PHYSICIAN] - 02/12/21 11:00 am (auto fleet manager for youir possible left lung mass) Narcisa Garrett MD [STAFF PHYSICIAN] - 02/24/21 11:20 am (neprologist ) None,Stated [Primary Care Provider] - 1-2 days Patient Instructions/Handouts: Hyponatremia (DC) Activity/Diet/Wound Care/Special Instructions: heart healthy diet , we recommend fluid restriction to 1500 ml per day activity is restricted till you see your doctor please follow up with your [facility] Office in 1-2 days for psych med reconciliation. please call to make appointment in 1-2 days Discharge Disposition: HOME SELF-CARE
== END 2021-02-04 13:03 | disposition home or self-care (01) | DRG 643 ==
LOC: EC 10:58 → 2SICU 13:51
PROVIDERS: ADMIT Hospitalist; ATTEND Hospitalist
DX: E22.2 Syndrome of inappropriate secretion of antidiuretic hormone (principal); J18.9 Pneumonia, unspecified organism; N17.0 Acute kidney failure with tubular necrosis; J98.11 Atelectasis; F25.9 Schizoaffective disorder, unspecified; M54.2 Cervicalgia; E78.5 Hyperlipidemia, unspecified; N18.31 Chronic kidney disease, stage 3a; E11.22 Type 2 diabetes mellitus with diabetic chronic kidney disease; I12.9 Hypertensive chronic kidney disease with stage 1 through stage 4 chronic kidney disease, or unspecified chronic kidney disease; F17.200 Nicotine dependence, unspecified, uncomplicated; Z82.3 Family history of stroke; Z91.14 Patient's other noncompliance with medication regimen; Z91.19 Patient's noncompliance with other medical treatment and regimen; D63.8 Anemia in other chronic diseases classified elsewhere; Z85.118 Personal history of other malignant neoplasm of bronchus and lung; Z92.21 Personal history of antineoplastic chemotherapy; Z92.3 Personal history of irradiation; F31.9 Bipolar disorder, unspecified; E86.0 Dehydration; T43.225A Adverse effect of selective serotonin reuptake inhibitors, initial encounter; R91.1 Solitary pulmonary nodule; E86.1 Hypovolemia; E87.70 Fluid overload, unspecified; W01.0XXA Fall on same level from slipping, tripping and stumbling without subsequent striking against object, initial encounter; Y92.410 Unspecified street and highway as the place of occurrence of the external cause
CPT/HCPCS: 36415; 70450; 71046; 71260; 72125; 74177; 80048; 80051; 80053; 80306; 81003; 82533; 82570; 83735; 83930; 83935; 84100; 84133; 84145; 84295; 84300; 84443; 84484; 84540; 84550; 84560; 85025; 85610; 85730; 93005; 96360; 96361; 99285

== ENCOUNTER → 2021-03-12 | Outpatient (CLI) | payer MEDICARE, OTHER ==
--- NOTE | 2021-03-12 13:14 | MR ---
EXAMINATION TYPE: MR brain wo/w con DATE OF EXAM: 03/12/2021 COMPARISON: Correlation CT 02/02/2021 HISTORY: 56-year-old male C34.92, Lung cancer. TECHNIQUE: Multiplanar, multisequence images of the brain and brainstem were acquired before and aft er administration of 7 mL IV Gadavist. Diffusion weighted imaging is performed. FINDINGS: No evidence for acute infarction, hemorrhage, mass, mass effect, midline shift, herniation, effacemen t of basal cisterns, or extra-axial fluid collection. The ventricles and sulci are age-appropriate. Hypoplastic left vertebral artery. There also appears to be mild diffuse narrowing of the distal half of the basilar artery. Otherwise, major intracranial flow voids are intact. T2/FLAIR weighted sequences show confluent bright white matter change in both cerebral hemispheres. Midline structures demonstrate normal morphology. The craniocervical junction is normal. Post contrast images demonstrate no evidence of pathologic enhancement. Dural venous sinuses are pat ent. Moderate mucosal thickening right maxillary sinus and bilateral ethmoid air cells. Also right sphenoi d sinus. Mild within the remainder of the paranasal sinuses. IMPRESSION: 1. Confluent T2 bright white matter change and posterior hemispheres. Query any history of prior whol e brain radiation. If no such history, findings could reflect severe confluent burden of chronic smal l vessel ischemic disease. 2. No acute intracranial abnormality or enhancing intracranial lesion seen. 3. Moderate chronic paranasal sinus disease.
== END | disposition home or self-care (01) ==
LOC: RADMRIMAIN 10:47
PROVIDERS: ATTEND Internal Medicine Hematology & Oncology
DX: C34.92 Malignant neoplasm of unspecified part of left bronchus or lung (principal); R93.0 Abnormal findings on diagnostic imaging of skull and head, not elsewhere classified; J32.9 Chronic sinusitis, unspecified
CPT/HCPCS: 70553; A9585

== ENCOUNTER → 2021-03-20 | Outpatient (CLI) | payer MEDICARE, OTHER ==
--- NOTE | 2021-03-24 07:17 | PE ---
EXAMINATION TYPE: PET CT fusion skull to thigh DATE OF EXAM: 03/20/2021 COMPARISON: Prior CT February 02, 2021 and older studies. 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 TECHNIQUE: Following the intravenous administration of 12.82 mCi of F-18 FDG, whole body images are performed from the skull base to the midthigh. Images are reviewed on the computer in the coronal, a xial, and sagittal planes. Reconstructed rotating images are created on independent workstation and reviewed on the computer. A localization and attenuation correction CT is performed in conjunction with the PET scan. Blood glucose level equals 109 SCAN: Subsequent Scan FINDINGS: SKULL BASE AND NECK: Persistent abnormal 1.8 x 1.5 cm hypermetabolic mass in the deep left parotid g land axial image 40, max SUV is 7.8. Similar finding noted on most recent PET/CT April 16, 2017. Correlate clinically if this area has been sampled. No new areas of abnormal hypermetabolic uptake. CHEST, MEDIASTINUM, AND HILAR REGION: Persistent left suprahilar irregular consolidation extending to the pleura near axial image 97, no abnormal hypermetabolic uptake. Remainder of thorax shows no new areas of suspicious hypermetabolic uptake. ABDOMEN AND PELVIS: Normal excretion is seen. No adrenal masses are noted. No new areas of abnormal h ypermetabolic uptake. OSSEOUS STRUCTURES: No new areas of abnormal hypermetabolic uptake OTHER CT: Patchy opacification inferior right maxillary sinus. Correlate clinically. Small degree of bilateral subareolar gynecomastia. Elevated left hemidiaphragm redemonstrated. Gallbladder presumed surgically absent. Mildly enlarged prostate consistent with BPH. Slight scolioti c curvature. IMPRESSION: Persistent enlarged hypermetabolic mass or lymph node deep left parotid gland similar to most recent PET/CT April 16, 2017. No new areas of abnormal hypermetabolic uptake with particular attention to the left mid lung.
== END | disposition home or self-care (01) ==
LOC: RADPETMAIN 12:08
PROVIDERS: ATTEND Internal Medicine Hematology & Oncology
DX: C34.92 Malignant neoplasm of unspecified part of left bronchus or lung (principal); R91.1 Solitary pulmonary nodule; J98.4 Other disorders of lung; Z85.118 Personal history of other malignant neoplasm of bronchus and lung
CPT/HCPCS: 78815; A9552

== ENCOUNTER → 2021-11-23 | Outpatient (CLI) | payer MEDICARE, OTHER ==
--- NOTE | 2021-11-23 17:16 | CA ---
Transthoracic Echo Report Name: Jose Roberto Mcmanus Age: 56 Gender: M : 1965 Exam Date: 11/23/2021 15:00 Exam Location: [facility] Ht (in): 68 Wt (lb): 180 Ordering Physician: [facility] Attending/Referring Phys: Tara Villegas [facility] [employer] Thais Bowden RDCS Procedure CPT: Indications: M34.9 Cardiac Hx: Technical Quality: Fair Contrast 1: Total Dose (mL): Contrast 2: Total Dose (mL): MEASUREMENTS (Male / Female) Normal Values 2D ECHO LV Diastolic Diameter PLAX 2.7 cm 4.2 - 5.9 / 3.9 - 5.3 cm LV Systolic Diameter PLAX 1.8 cm IVS Diastolic Thickness 1.1 cm 0.6 - 1.0 / 0.6 - 0.9 cm LVPW Diastolic Thickness 1.0 cm 0.6 - 1.0 / 0.6 - 0.9 cm LV Relative Wall Thickness 0.7 RV Internal Dim ED PLAX 2.6 cm LA Volume 39.5 cm??? 18 - 58 / 22 - 52 cm??? M-MODE Aortic Root Diameter MM 3.7 cm AV Cusp Separation MM 2.5 cm DOPPLER AV Peak Velocity 130.4 cm/s AV Peak Gradient 6.8 mmHg LVOT Peak Velocity 118.6 cm/s LVOT Peak Gradient 5.6 mmHg MV Area PHT 3.5 cm??? Mitral E Point Velocity 65.3 cm/s Mitral A Point Velocity 62.1 cm/s Mitral E to A Ratio 1.1 MV Deceleration Time 215.4 ms MV E' Velocity 6.7 cm/s Mitral E to MV E' Ratio 9.8 TR Peak Velocity 250.1 cm/s TR Peak Gradient 25.0 mmHg Right Ventricular Systolic Press 30.0 mmHg FINDINGS Left Ventricle Normal left ventricular size, wall thickness, systolic function with no obvious regional wall motion abnormalities. Normal left ventricular diastolic filling pattern for age. The ejection fraction is visually estimated at 55 %. Right Ventricle The right ventricle is normal in size and function. Right ventricular systolic pressure within normal limits. Right Atrium Right atrium not well visualized. Left Atrium The left atrium is normal in size. Mitral Valve Structurally normal mitral valve without significant stenosis. There is no mitral regurgitation. Aortic Valve Structurally normal aortic valve without significant sclerosis or stenosis. There is no aortic regurgitation. Tricuspid Valve Structurally normal tricuspid valve without significant stenosis. Pulmonary artery systolic pressure is normal. Mild tricuspid regurgitation. Pulmonic Valve Structurally normal pulmonic valve without significant stenosis. There is no pulmonic regurgitation. Pericardium Normal pericardium without effusion. Aorta Normal aortic root dimension. CONCLUSIONS Normal LV systolic function Normal PA pressures Normal size aortic root No pericardial effusion Previewed by: Dr. Ross Thornton MD (Electronically Signed) Final Date: 23 Nov 2021 17:15
== END | disposition home or self-care (01) ==
LOC: RADECHMAIN 14:49
PROVIDERS: ATTEND Internal Medicine
DX: I07.1 Rheumatic tricuspid insufficiency (principal); I10 Essential (primary) hypertension
CPT/HCPCS: 93306